=== PATIENT | female | born 1955 | race Caucasian/White ===

== ENCOUNTER 2022-04-25 10:01 | Emergency (ER) | payer MEDICARE, OTHER, SELFPAY ==
[2022-04-25 10:06] VITALS: BP 124/67; PULSE 82; RESP 20; TEMP 36.9; O2SAT 97; BMI 26.1
--- NOTE | 2022-04-25 10:15 | CRLHL7_ITS ---
For Patients: As a result of the Cures Act, medical imaging exams and procedure reports are released immediately into your electronic medical record. You may view this report before your referring provider. If you have questions, please contact your health care provider. Indication: Knee pain. Technique: Multiple radiographic views of the knee. Comparison: None. Findings: No acute fractures. No effusion. Very slight narrowing of the medial and lateral tibiofemoral joint spaces. A few tiny marginal osteophytes. No soft tissue abnormalities Impression: 1. No acute radiographic abnormalities involving the right knee. 2. Very minor osteoarthrosis. Dictated by Basil Newell MD @ 04/25/2022 11:27:35 AM (Electronically Signed)
--- NOTE | 2022-04-25 10:16 | ED.GENADULT ---
HPI - General Adult General Time Seen by Provider: 10:16 Date Seen: 04/25/22 Chief complaint: Extremity Pain/Injury, Lower Stated complaint: Right knee injury Time Seen by Provider: 04/25/22 10:04 Source: patient Mode of arrival: wheelchair Limitations: physical limitation History of Present Illness HPI narrative: Patient is a 66 white female has had a history of left knee replacement, 3 months ago fell on her right knee and injured it. Saw her primary care doctor few weeks ago and thought there was a torn ligament in her knee, but has not had imaging, she has had a small knee brace on, more compression brace. Patient reports no effusion but reports limited motion she stepped down today and had significant pain in her knee. Has not noted swelling, feels a sensation of locking or catching. No marked swelling as mention. Related Data Home Medications Medication Instructions Recorded Confirmed albuterol sulfate 90 mcg/actuation INHALATION 04/25/22 aerosol inhaler bupropion HCl 300 mg 24 hr tablet, mg PO 04/25/22 extended release buspirone 30 mg tablet mg 04/25/22 duloxetine 20 mg capsule,delayed mg PO 04/25/22 release famotidine 20 mg tablet mg 04/25/22 losartan 50 mg tablet mg 04/25/22 oxycodone-acetaminophen 5 mg-325 tab 04/25/22 mg tablet pregabalin 50 mg capsule mg 04/25/22 Previous Rx's Medication Instructions Recorded ketorolac 10 mg tablet 10 mg PO Q8H #15 tab 04/25/22 Allergies Allergy/AdvReac Type Severity Reaction Status Date / Time aripiprazole [From Abilify] Allergy Intermediate Verified 04/25/22 10:12 Review of Systems Status of ROS: Reports: 6 or more systems reviewed and unremarkable except as noted in History and below PFSH PFSH Social History Smoking Status: Unknown if ever smoked Exam Narrative: Exam Narrative: Objective: Patient is in no apparent distress Has a brace on that is removed from her right knee. The patient has no effusion the patient has a stable knee with negative anterior-posterior drawer, limited range of motion of flexion extension due to discomfort distal CMS appears intact, no lower extremity swelling , no redness or warmth of the knee. Const: Vital Signs, click to edit/add: Vital Signs - 24 hr 04/25/22 10:06 Temperature 98.5 F Pulse Rate [Pulse Oximeter] 82 Respiratory Rate 20 Blood Pressure [Ri ght Upper Arm] 124/67 Pulse Oximetry 97 Course Vital Signs Vital signs: Initial Vital Signs Temperature 98.5 F 04/25/22 10:06 Temperature Source Temporal Artery Scan 04/25/22 10:06 Pulse Rate 82 04/25/22 10:06 Respiratory Rate 20 04/25/22 10:06 Blood Pressure 124/67 04/25/22 10:06 Blood Pressure Mean 86 04/25/22 10:06 Blood Pressure Position Supine 04/25/22 10:06 Pulse Oximetry 97 04/25/22 10:06 Oxygen Delivery Method 04/25/22 10:06 Vital Signs Temperature 98.5 F 04/25/22 10:06 Pulse Rate 82 04/25/22 10:06 Respiratory Rate 20 04/25/22 10:06 Blood Pressure 124/67 04/25/22 10:06 Pulse Oximetry 97 04/25/22 10:06 Temperature 98.5 F 04/25/22 10:06 Pulse Rate 82 04/25/22 10:06 Respiratory Rate 20 04/25/22 10:06 Blood Pressure 124/67 04/25/22 10:06 Pulse Oximetry 97 04/25/22 10:06 Medical Decision Making MDM Narrative Medical decision making narrative: Patient this point is not had an x-ray of her knee would order a plain film of her knee, will also then give her knee immobilizer crutches, Toradol 10 mg orally now patient likely will need to see Orthopedics and have follow-up imaging if more advanced imaging required such as MRI scanning of the knee. Her symptoms would be somewhat suggestive of meniscal injury. Addendum: By my review her knee x-ray looks unremarkable, should be placed in a knee immobilizer, crutches, Toradol as needed. Recommend orthopedic followup in 3-4 days for reassessment, possible more advanced imaging if needed suspicion would be for a cartilaginous injury. Discharge Plan Discharge Clinical Impression: Acute knee pain Patient Disposition: Home w/ Parent or Adult Condition: Stable Additional Instructions: Rest, ice, knee immobilizer, nonweightbearing with crutches, orthopedic followup in 3-4 days, Toradol as needed for pain control, may use acetaminophen as well. Activity Level: Light activity and No Weight Bearing Discharge Diet: Regular Prescriptions: New ketorolac 10 mg tablet 10 mg PO Q8H Qty: 15 0RF No Action losartan 50 mg tablet 0RF oxycodone-acetaminophen 5-325 mg tablet 0RF famotidine 20 mg tablet 0RF buspirone 30 mg tablet 0RF albuterol sulfate 90 mcg/actuation HFA aerosol inhaler INHALATION 0RF Label Comments: INHALE 1-2 PUFFS BY MOUTH EVERY 4 HOURS IF NEEDED FOR SHORTNESS OF BREATH OR WHEEZING bupropion HCl 300 mg tablet extended release 24 hr PO 0RF duloxetine 20 mg capsule,delayed release(DR/EC) PO 0RF pregabalin 50 mg capsule 0RF Stand Alone Forms: [employer] Info Instructions
[2022-04-25] MEDS: KETOROLAC 10 MG TABLET PO (10:33)
== END 2022-04-25 11:12 | disposition home or self-care (01) ==
PROVIDERS: Emergency Provider Family Medicine; PCP Family Medicine
DX: M25.561 Pain in right knee (principal)
CPT/HCPCS: 73562; 99283; 99284; A9270

== ENCOUNTER 2022-05-06 06:48 | Outpatient (CLI) | payer MEDICARE, OTHER, SELFPAY ==
--- NOTE | 2022-05-06 07:15 | MR_ITS ---
[address] [address] Phone:?[phone] Fax:?[phone] Referring Physician Information: Selene Farnsworth [address] [facility] [address] Phone:?[phone] Fax:?[phone] Patient:?Irene Diaz D.O.B:?1955 Sex:?Female Phone:?[phone] [facility] MRN:?[id number] Exam Date:?05/06/2022 ? EXAM: MRI OF THE RIGHT KNEE CLINICAL INFORMATION: The patient is a 67-year-old with right knee pain. Evaluate for lateral meniscal injury. PRIOR SURGERY: None reported. COMPARISON STUDIES: There are no prior studies available for comparison. TECHNICAL INFORMATION: Imaging was performed on a high-field, 1.5 Kathe MR scanner. Axial proton-density and fat-suppressed T2 imaging of the right knee was performed in addition to sagittal proton-density and fat-suppressed proton- density imaging. Coronal proton-density and coronal STIR imaging was performed as well. FINDINGS: Articular/Extraarticular collections: Effusion: Moderate. Popliteal cyst: Minimal. Loose bodies: No well-defined intra-articular loose bodies are seen. Subcutaneous and extraarticular soft tissues: There is a mixed signal intensity fluid collection noted within the subcutaneous soft tissues along the anterior aspect of the patella seen on sagittal series 6 image 12 and on axial series 4 image 13. This collection measures 22 mm in mediolateral dimension, 15 mm in craniocaudal dimension, and 7 mm in anteroposterior dimension. Surrounding soft tissue edema, hemorrhage, or inflammatory changes can be seen. The findings may relate to prepatellar bursitis but may also relate to hematoma or abscess within the subcutaneous soft tissues. Clinical correlation is required. Osseous structures: Mild reactive marrow edema can be seen along the posterolateral aspects of the medial tibial plateau on coronal series 8 image 21, in keeping with the meniscal tearing discussed below. Additional reactive marrow edema can be seen along the patellar apex and medial patellar facet, in keeping with the chondromalacia and chondral loss described below. No other bony abnormalities about the knee are seen. Ligamentous structures: ACL: Intact and normal in appearance. PCL: Intact and normal in appearance. MCL: Chronic residual changes of a prior incomplete proximal MCL sprain can be seen on coronal series 8 images 16 and 17. No evidence for acute injury is identified. No transverse disruption of MCL fibers can be seen. LCL: Intact and normal in appearance. Posterolateral corner: Intact and normal in appearance. Posteromedial corner: No posteromedial corner soft tissue injury. Semimembranosus and pes anserine tendons demonstrate no tendinopathy or associated bursitis. Extensor mechanism/Patellar retinacular structures: Patellar tendon: Intact, without tendinopathy. Quadriceps tendon: Intact, without tendinopathy. Retinacula: The medial and lateral retinacula are intact. The medial patellofemoral ligament is intact. Medial compartment: Medial meniscus: The medial meniscus is abnormal in appearance. There is broad- based, complex tearing of the posterior horn of the medial meniscus involving the superior and inferior surfaces with extension to the meniscal attachment. The findings are seen on sagittal series 5 image 19 and on coronal series 7 image 21. The area of tearing measures 23 mm in mediolateral dimension. Additionally, there is a full-thickness radial tear involving the far posterior aspect of the medial meniscus at the meniscotibial attachment on sagittal series 6 image 18 and on coronal series 7 image 22. This radial tearing measures approximately 6 mm in greatest dimension. The middle and anterior portions of the medial meniscus appear intact. No definite evidence for well-defined parameniscal cyst formation is seen. Medial femoral condyle: No chondromalacia, chondral defect, or osteochondral abnormality. Medial tibial plateau: No chondromalacia, chondral defect, or osteochondral abnormality. Lateral compartment: Lateral meniscus: No evidence for lateral meniscal tearing is present. No evidence for parameniscal cyst formation can be seen. Lateral femoral condyle: No chondromalacia, chondral defect, or osteochondral abnormality. Lateral tibial plateau: No chondromalacia, chondral defect, or osteochondral abnormality. Patellofemoral compartment: Patella: Full-thickness and near full-thickness chondral loss can be seen involving the patellar apex and medial patellar facet on axial series 3 image 9, measuring 16 mm in mediolateral dimension. Underlying bony changes are present. Additional grade II chondromalacia of the lateral patellar facet can be seen. Trochlea: Full-thickness and near full-thickness chondral loss can be seen along the medial articular surfaces of the femoral trochlea on axial series 3 image 15 and on sagittal series 6 image 16, measuring approximately 15 mm in greatest dimension. Neurovascular: No definite neurovascular abnormalities are seen. CONCLUSION: 1. Broad-based, complex tearing of the posterior horn of the medial meniscus, including radial tearing of the far posterior aspect of the medial meniscus at the meniscotibial attachment. 2. No lateral meniscal tearing is present. 3. Chondromalacia and chondral loss involving the patellofemoral articulation as described above. 4. Chronic incomplete MCL sprain. The cruciate ligaments appear intact. 5. Moderate knee joint effusion and minimal popliteal cyst. 6. Fluid collection within the subcutaneous soft tissues along the anterior aspect of the patella with surrounding edema, hemorrhage, or inflammatory change. The findings may relate to prepatellar bursitis, hematoma, or abscess. AEC Electronically signed on 05/06/2022 1:39:00 PM by Antony Harris M.D.
== END 2022-05-06 06:49 | disposition home or self-care (01) ==
LOC: MRI 06:51
PROVIDERS: PCP Family Medicine; Visit Provider Physician Assistant Surgical
DX: M25.561 Pain in right knee (principal); M23.221 Derangement of posterior horn of medial meniscus due to old tear or injury, right knee; M94.261 Chondromalacia, right knee; S83.411A Sprain of medial collateral ligament of right knee, initial encounter; M25.461 Effusion, right knee; M71.21 Synovial cyst of popliteal space [Baker], right knee
CPT/HCPCS: 73721

== ENCOUNTER 2022-05-26 06:12 | Day surgery (SDC) | payer MEDICARE, OTHER, SELFPAY ==
[2022-05-26] VITALS (15 sets, daily range): BP systolic 134–153; BP diastolic 64–91; PULSE 60–86; RESP 8–20; TEMP 36.4–36.6; O2SAT 4–100; BMI 25.6
[2022-05-26] MEDS: LACTATED RINGERS 1000 ML 1,000 ML 100 ML IV (07:00)
[2022-05-26] MEDS: SODIUM CHLORIDE 0.9 % (FLUSH) 10 ML SYRINGE IVF (07:00)
[2022-05-26] MEDS: CEFAZOLIN 1 GM in 0.9 % SODIUM CHLORIDE Mini-bag 100 ML IVPB (07:42)
--- NOTE | 2022-05-26 08:49 | PM.ORPRC ---
Procedure Note Date of procedure: 05/26/22 Procedure: PREOPERATIVE DIAGNOSIS: 1. Right knee medial meniscus root tear POSTOPERATIVE DIAGNOSIS: 1. Right knee medial meniscus posterior root tear, subacute 2. 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 Right knee arthroscopic medial meniscus posterior root repair 2. Right knee medial femoral condyle chondroplasty 3. Right knee microfracture intercondylar notch SURGEON: Keyur Valle M.D. BEAM DYER: Gen WHITFIELD. Of note, a skilled acute care certified nursing assistant was critical for this case to aid in patient positioning, knee manipulation, skill to manipulate arthroscopic instruments and camera, instrument exchange, and closure. ANESTHESIA: General LMA EBL: 10 mL TOURNIQUET: 60 minutes at 275 torr IMPLANTS: Arthrex 4.75 MM peek SwiveLock suture anchor COMPLICATIONS: None evident INDICATIONS: The patient is a pleasant 67-year-old female who has experienced right knee pain particularly with any twisting or turning. Physical exam was concerning for medial meniscus tear, this was confirmed on MRI, but more specifically as at the posterior root. The medial meniscus had otherwise extruded into the medial gutter. Attempted nonoperative management has been tried, and failed. Thus, surgery was recommended for stabilization of the medial meniscus posterior root. FINDINGS: Grade 2-3 chondromalacia medial femoral condyle broadly involving the weight-bearing portion. Grade 2-3 patellofemoral compartment. ACL and PCL were intact and robust. Lateral meniscus was intact and strong. Lateral articular cartilage was healthy. Medial compartment showed tearing of the posterior root primarily in a radial manner. It did have some longitudinal extension along the posterior horn. After capturing the meniscus root and anchor, the posterior horn tear did not have any further excursion and instead was stable. DESCRIPTION OF PROCEDURE: After a thorough discussion of risks, benefits, and alternatives, the patient was brought to the operating room and placed upon the operating table. Induction of anesthesia was undertaken as previously noted. 1 g IV Ancef was administered within 1 hr of incision preoperatively. Appropriate time-out was performed identifying proper patient, site, and procedure. The right lower extremity was prepped and draped in the appropriate sterile fashion using ChloraPrep. The limb was exsanguinated and tourniquet inflated. Anterolateral and anteromedial portals were established with an 11 blade, and a diagnostic arthroscopy was performed. This identified the findings as noted above. Following the diagnostic arthroscopy, the meniscal root was debrided with a 4.0 mm torpedo shaver. This was to freshen the meniscal edge. This also allowed us to debride some the synovium on the medial wall within the notch. A flip cutter guide for the posterior meniscus root was utilized and placed in the desired fashion where the medial meniscus posterior root should attach. A 6 mm flip cutter was then drilled up from the medial tibial crest region, and exited exactly where our desired spot was. The blade was flipped, and it was retro drilled approximately 5-10 mm deep at most. Attention was then turned to securing of the meniscal root. The meniscal scorpion device was utilized to pass 2 separate # 0 fiber link sutures in a luggage tag fashion. Excellent security of the meniscus was achieved. These tails were brought down through the bone tunnel that was drilled with the flip cutter, using a shuttle suture. After providing tension on this, the meniscus indeed became stable, and improved in position. The sutures were anchored with a 4.75 mm peek SwiveLock suture anchor after drilling, tapping, and placing the anchor. The meniscus was reprobed and found to be stable. Chondroplasty was performed on the medial femoral condyle using a 4.0 mm torpedo shaver. This was taken back just to the a stable chondral edge subtle loose pieces were debrided. At this stage, the Arthrex power pick device was utilized to microfracture the intercondylar notch to aid with the healing of the meniscus repair. Instruments were removed, excess fluid was drained, and closure performed with 2-0 Vicryl for subcutaneous closure of the tibial incision, and 4-0 Monocryl for subcuticular closure and portal closure. with Steri-Strips. Dressings were applied, the tourniquet deflated, and the patient was awoken from anesthesia and transferred to the PACU in stable condition. A skilled acute care certified nursing assistant was critical for this case to aid in patient positioning, knee manipulation, skill to manipulate arthroscopic instruments and camera, instrument exchange, and closure. PLAN: 1. Toe-touch weightbear operative lower extremity. Crutch / walker ambulation assistance PRN. 2. Ice, acetominophen and/or ibuprofen, and Percocet for pain as needed. 3. Knee range of motion and quad sets/straight leg raise regularly 4. Follow up with PA visit in 1-2 weeks for a wound check. Brace use-0-90 degrees open. Weightbear as tolerated. Brace times 2 weeks day and night. Then another 4 weeks just during the day.
--- NOTE | 2022-05-26 09:13 | W.PM.NB ---
Nerve Block Nerve Block Time Seen by Provider: 08:59 Date Seen: 05/26/22 Type of block requested by surgeon for post-operative analgesia: geniculars Side: right Time out performed: Yes Verification of patient name: Yes Verification of date of : Yes Site marking: site marked Name of person performing procedure: LESLIE Angela Continuous monitoring Was continuous monitoring of O2 sat, B/P, student financial aid manager, recorded every 15 minutes?: Yes Procedure Checklist: sterile prep, needles and gloves Ultrasound guided. Images saved: No Medications given in 5ml increments after negative aspiration: Ropivicaine %: 0.5 mL: 12 Needle gauge: 25 Precedex (mcg): 20 Patient tolerated procedure well: Yes Block Charges Block Charge (with Pro Fee): Genicular Nerve Block Use of Ultrasound Machine for Block: No
[2022-05-26] MEDS: ONDANSETRON 2 MG/ML inj 4 MG IVP (09:22)
[2022-05-26] MEDS: METOCLOPRAMIDE HCL 5 MG/ML INJ 10 MG IVP (09:50)
[2022-05-26] MEDS: hydrOXYzine pamoate 25 MG CAPSULE PO (10:15)
[2022-05-26] MEDS: OxyCODONE/APAP 5-325 TABLET 1 TAB PO (10:15)
--- NOTE | 2022-05-26 11:59 | W.ANESCHARGE ---
Anesthesia Charges Start Date/Time Anesthesia Start Date: 05/26/22 Anesthesia Start Time: 07:36 Stop Date/Time Anesthesia Stop Date: 05/26/22 Anesthesia Stop Time: 09:08
--- NOTE | 2022-05-26 12:55 | W.ANESCHARGE ---
Anesthesia Charges Start Date/Time Anesthesia Start Date: 05/26/22 Anesthesia Start Time: 07:36 Stop Date/Time Anesthesia Stop Date: 05/26/22 Anesthesia Stop Time: 09:08 Summary Emergency: No
== END 2022-05-26 11:20 | disposition home or self-care (01) ==
PROVIDERS: PCP Family Medicine; Visit Provider Orthopaedic Surgery Sports Medicine
PROC: (CPT 29870; principal; 2022-05-26 08:00)
DX: M23.221 Derangement of posterior horn of medial meniscus due to old tear or injury, right knee (principal); M94.261 Chondromalacia, right knee
CPT/HCPCS: 29882; 29879; 1400; 64454; A9270; C1713; J0690; J1100; J1170; J1200; J2250; J2405; J2704; J2765; J2795; J3010; J7120; L1833

== ENCOUNTER 2022-07-22 11:30 | Outpatient (RCR) | payer MEDICARE, OTHER, SELFPAY ==
--- NOTE | 2022-06-17 15:48 | PT.OPEX ---
PT [facility] PT [facility] Eval Start: 06/17/22 14:45 Freq: Status: Active Protocol: Document 06/17/22 14:46 ARR (Rec: 06/17/22 15:45 ARR [id number]) E-signed By Katheryn Gray DPT Physical Therapy Outpatient Evaluation Insurance Information Recert Due Date 09/15/22 Insurance Name Medicare B Insurance Information/Comments Eval 06/17 SAM Medical Diagnosis Z98.890 other specified partial medial meniscectomy Treating Diagnosis M25.561 right knee pain M25.661 right knee stiffness R26.2 difficulty walking Referring BRONWYN Leslie ([facility]) Subjective Subjective ~3 wks post op right knee arthroscopic medial meniscus posterior root repair, medial femoral condyle chondroplasty, microfracture intercondylar notch -(date of surgery-2021). Continues to wear brace . Wants to limit in person PT visits. Overall doing well. Very little pain. -Split level level home with spouse. To get to front door has x 7 steps then another x 7 steps to main level. Base level has laundry. Currently doing step to walking pattern, has been practicing foot over foot pattern -Walking without no AD. -Able to do ADL's without assistance -Does exercises currently bending and straightening knee PMHx: sepsis, renal disease, chronic LBP, R shoulder arthritis, L TKA, shoulder surgery Preferred Name SAM Objective Functional Test Performed & Score Palpation: slight TTP over portals. Reduced tissue mobility over incisions. All healing, slight scabbing over distal incision SLS (30 sec): unable Gait: slight antalgic gait with reduced heel toe pattern, brace donned RANGE OF MOTION: LE ROM (R/L): -Knee Flx: 135 L / 130 R -Knee Ext: 0 L / -5 (lacking extension) R STRENGTH: LE Flexibility (R/L) - Gastroc: + R Knee Patella: (R) -VMO coordination: reduced quad firing, -Patella glides: reduced sup/ inf -Extensor lag: pos on R during eccentric lowering Assessment Assessment/Impression Pt is a 67 y/o female who presents s/p right knee arthroscopic medial meniscus posterior root repair, medial femoral condyle chondroplasty, microfracture intercondylar notch on 05/26/22 ~3 wks post op this date. Signs and symptoms likely indicating / consistent with post op status including decreased knee ROM, quad inhibition, and antalgic gait. Patient also has notable objective findings including reduced knee extension lacking 5* also likely contributing to the problem. Patient is a good candidate for skilled therapy to target deficits described above. Skilled PT intervention is necessary for use of therapeutic exercise manual therapy, neuromuscular re- education, gait training, and therapeutic activity. Functional impairments include difficulty with: stairs, walking. See appropriate sections of PT eval for complete list of goals and POC . D/C plan and criteria is for pt to achieve the goals as listed below or until max rehab potential is met. Pt was agreeable with plan of care and goals established. Pt wishing to reduce clinic visits, pt doing very well post-op at this time. Did discuss not going to end range flexion due to tissue healing and to follow MD restrictions on brace Plan of Care Rehabilitation Potential Good Physical Therapy Goals STG (within 1 visits) 1) Pt will initiate HEP without increased pain/ symptoms LTG (within 4 visits) 1) Pt will be indep with HEP for mcc management of pain/symptoms 2) Pt will demonstrate improved knee AROM at least 0* full extension for improved gait 3) Pt will demonstrate ability to maintain SLS > 15 sec with neutral pelvis and LE alignment to reduce knee strain during ambulation on uneven terrain 4) Pt will complete 6MWT without device and nonantalgic gait with no increases in pain for improved community mobility Treatment Plan/Direct Interventions Gait Training,Neuromuscular Re -ed,Therapeutic Activities, Therapeutic Exercises Frequency/Duration 1x every other week x 4 visits within 90 days Patient Will Be Discharged From Therapy Skills [facility],Independent w/ HEP Evaluation Billing Untimed Code Treatment Minutes 20 Complexity Low Certification Information Initial Certification Date 06/17/22 Ending Certification Date 09/15/22 Provider Signature Shows Agreement With POC & Medical Necessity Physician Comment/Change Comment or Changes Physician NPI Number #
== END 2022-10-11 15:25 | disposition home or self-care (01) ==
PROVIDERS: PCP Family Medicine; Visit Provider Physician Assistant Surgical
DX: Z98.890 Other specified postprocedural states (principal); Z51.89 Encounter for other specified aftercare
CPT/HCPCS: 97110; 97140; 97161

== ENCOUNTER 2022-08-18 13:17 | Outpatient (CLI) | payer MEDICARE, OTHER, SELFPAY ==
--- NOTE | 2022-08-18 13:45 | MR_ITS ---
[address] [address] Phone:?[phone] Fax:?[phone] Referring Physician Information: Keyur Valle M.D. [address] [facility] [address] Phone:?[phone] Fax:?[phone] Patient:Taylor Diaz D.O.B:?1955 Sex:?Female Phone:?[phone] [facility] MRN:?[id number] Exam Date:?08/18/2022 ? EXAM: MRI of the RIGHT KNEE, without contrast CLINICAL INFORMATION: Female, 67 years old, with right knee pain. INDICATION: Evaluate meniscus repair PRIOR SURGERY: History of prior surgery. PLAIN FILMS: None available. COMPARISONS: Knee MRI 05/06/2022. TECHNICAL INFORMATION: Using a 1.5T MR scanner and a localizing surface coil: sagittals: PD, PDFS coronals: PD, T2FS axials: PD, PDFS SEDATION: None CONTRAST: None FINDINGS: Knee joint: Effusion: Large sized right knee effusion. Popliteal cyst: None. Loose bodies: None. Subcutaneous and extra-articular soft tissues: Unremarkable. Ligaments: ACL: Intact ACL anteromedial and posterolateral bundles, without sprain or tear. PCL: Intact PCL, without acute or chronic injury. MCL: Chronic residua of superficial MCL sprain injury. LCL: Intact LCL, without injury. Posterolateral corner: No posterolateral corner soft tissue injury. Popliteus, biceps femoris, iliotibial band, popliteofibular ligament and lateral gastrocnemius are intact. Posteromedial corner: No posteromedial corner soft tissue injury. Semimembranosus, pes anserine tendons and posterior oblique ligament are without injury, tendinopathy or bursitis. Extensor mechanism: Patellar tendon: Intact, without tendinopathy. Quadriceps tendon: Intact, without tendinopathy. Retinacula: Medial and lateral retinacula are intact. Fat pads: Unremarkable infrapatellar Hoffa's, quadriceps and prefemoral fat pads. Medial compartment: Medial meniscus: Postoperative changes of posterior root repair of the medial meniscus. No convincing appearance of meniscal tissue is seen at the posterior root underlying the site of repair (sagittal series 6 image 19). There appears approximately 5 mm full-thickness radial tearing along the posterior horn/root (coronal series 8 image 20). Complex signal abnormality and tearing with vertical and horizontal undersurface component of the posterior horn/root measuring 1.0 cm in length (sagittal series 6 images 24-21). There is 5 mm peripheral meniscal extrusion at the level of the body. Medial femoral condyle: Broad-based grade 2/3 chondral thinning of the medial femoral condyle articular cartilage. Medial tibial plateau: Grade 2 chondral thinning of the medial tibial plateau articular cartilage. Lateral compartment: Lateral meniscus: No articular surface, meniscosynovial junction or root tear. No displacement, extrusion or parameniscal cyst. Lateral femoral condyle: No chondromalacia or osteochondral abnormality. Lateral tibial plateau: No chondromalacia or osteochondral abnormality. Patellofemoral joint: Patella: Grade III/IV chondromalacia of the superior medial patellar facet and central midline ridge. Minimal subchondral cystic change is similar to prior. Trochlea: Grade IV chondromalacia of the medial femoral trochlea similar to prior. Proximal tibiofibular joint: Unremarkable, without evidence of ligament sprain injury, joint effusion or adjacent marrow edema. Bones: No stress/occult fractures or other marrow edema/pathology. IMPRESSION: 1. Postoperative changes of posterior root repair of the medial meniscus, without convincing appearance of meniscal fibers extending to the repair site, concerning for residual or recurrent tearing. Complex signal abnormality/tearing with vertical and horizontal undersurface components along the posterior horn/root. 5 mm peripheral meniscal extrusion. 2. Broad-based grade II/III chondromalacia of the medial femoral condyle and tibial plateau articular cartilage, progressed from prior. 3. Patellofemoral chondromalacia with grade III/IV changes similar to prior. 4. Chronic residua of incomplete superficial MCL sprain injury. 5. Large knee joint effusion. KME Electronically signed on 08/18/2022 7:02:00 PM by Claire Dias M.D.
== END 2022-08-18 13:18 | disposition home or self-care (01) ==
LOC: MRI 13:18
PROVIDERS: PCP Family Medicine; Visit Provider Orthopaedic Surgery Sports Medicine
DX: M25.561 Pain in right knee (principal); M22.41 Chondromalacia patellae, right knee; M25.461 Effusion, right knee; M23.221 Derangement of posterior horn of medial meniscus due to old tear or injury, right knee
CPT/HCPCS: 73721

== ENCOUNTER 2022-10-18 07:09 | Day surgery (SDC) | payer MEDICARE, OTHER, SELFPAY ==
[2022-10-18] VITALS (13 sets, daily range): BP systolic 135–156; BP diastolic 68–89; PULSE 76–88; RESP 14–16; TEMP 36.1–36.8; O2SAT 87–100; BMI 26.2
[2022-10-18] MEDS: SODIUM CHLORIDE 0.9 % (FLUSH) 10 ML SYRINGE IVF (07:25)
[2022-10-18] MEDS: LACTATED RINGERS 1000 ML 1,000 ML 100 ML IV (07:25)
--- NOTE | 2022-10-18 07:47 | SUR.PREOP ---
HOME COVID TEST NEGATIVE.
[2022-10-18] MEDS: CEFAZOLIN 2 GM in 0.9 % SODIUM CHLORIDE Mini-bag 100 ML IVPB (07:58)
[2022-10-18] MEDS: ROPIVACAINE 0.5% 30 ML 150 MG INJECTION (08:19)
--- NOTE | 2022-10-18 08:21 | PM.ORPRC ---
Procedure Note Date of procedure: 10/18/22 Procedure: PREOPERATIVE DIAGNOSIS: 1. Right knee medial meniscus tear POSTOPERATIVE DIAGNOSIS: 1. Right knee medial meniscus tear 2. 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 Right knee arthroscopic partial medial meniscectomy 2. Right knee arthroscopic chondroplasty medial and patellofemoral compartments. SURGEON: Keyur Valle M.D. PROGRAM SUPPORT SPECIALIST: ROSEANN Anderson. Of note, an faculty i on call medical assistant was critical for this case to aid in patient positioning, knee manipulation, instrument exchange, and closure. ANESTHESIA: Spinal EBL: 2ml TOURNIQUET: 25 minutes at 300 torr COMPLICATIONS: None evident INDICATIONS: The patient is a pleasant 67-year-old female who has experienced right knee pain particularly with any twisting or turning. Physical exam was concerning for medial meniscus tear, this was confirmed on MRI. Additionally, attempted nonoperative management has been tried, and failed. Thus, surgery was recommended. FINDINGS: Complex tearing the posterior horn to midbody medial meniscus. The posterior meniscus root repair sutures from the prior surgery were visible. They had torn completely from the remaining posterior horn. This was essentially a complete radial tear but now the tissue quality was very poor. Beyond that, grade 3 chondromalacia seen throughout the medial femoral condyle. ACL did not appear to be in its typical location the femoral attachment but instead had a partial empty wall sign. There were fibers that were still taut. The PCL was intact robust. Lateral compartment showed intact lateral meniscus and intact articular cartilage. Patellofemoral compartment showed grade 3 chondromalacia broadly through the trochlear groove and medial femoral condyle anteriorly and distally as well as grade 3 patella median ridge and medial facet. DESCRIPTION OF PROCEDURE: After a thorough discussion of risks, benefits, and alternatives, the patient was brought to the operating room and placed upon the operating table. Induction of anesthesia was undertaken as previously noted. 1 g IV Ancef was administered within 1 hr of incision preoperatively. Appropriate time-out was performed identifying proper patient, site, and procedure. The right lower extremity was prepped and draped in the appropriate sterile fashion using ChloraPrep. The limb was exsanguinated and tourniquet inflated. Anterolateral and anteromedial portals were established with an 11 blade, and a diagnostic arthroscopy was performed. This identified the findings as noted above. Following the diagnostic arthroscopy, a partial medial menisectomy was performed with the combination of basket forceps and a motorized shaver. Following this, the meniscus was re-probed and found to be stable. Approximately 25-30 % of the overall meniscus required resection. Chondroplasty was also performed with the torpedo shaver on the medial femoral condyle and patella for the loose chondral flaps. At this stage, the shaver was reinserted into the suprapatellar pouch and all remaining meniscal debris was evacuated. Instruments were removed, excess fluid was drained, and closure performed with 4-0 Monocryl with Steri-Strips. Dressings were applied, the tourniquet deflated, and the patient was awoken from anesthesia and transferred to the PACU in stable condition. PLAN: 1. Weightbear as tolerated operative extremity. Crutch / walker ambulation assistance PRN. 2. Ice, acetominophen and/or ibuprofen, and Percocet for pain as needed. 3. Knee range of motion and quad sets/straight leg raise regularly 4. Follow up with PA visit in 1-2 weeks for a wound check and possibly to initiate physical therapy.
--- NOTE | 2022-10-18 08:32 | W.ANESCHARGE ---
Anesthesia Charges Start Date/Time Anesthesia Start Date: 10/18/22 Anesthesia Start Time: 07:43 Stop Date/Time Anesthesia Stop Date: 10/18/22 Anesthesia Stop Time: 08:31 Summary Emergency: No
--- NOTE | 2022-10-18 09:16 | W.ANESCHARGE ---
Anesthesia Charges Start Date/Time Anesthesia Start Date: 10/18/22 Anesthesia Start Time: 07:43 Stop Date/Time Anesthesia Stop Date: 10/18/22 Anesthesia Stop Time: 08:31 Summary Emergency: No
[2022-10-18] MEDS: OxyCODONE/APAP 5-325 TABLET 1 TAB PO (09:17)
== END 2022-10-18 09:55 | disposition home or self-care (01) ==
PROVIDERS: PCP Family Medicine; Visit Provider Orthopaedic Surgery Sports Medicine
PROC: (CPT 29870; principal; 2022-10-18 07:45)
DX: S83.231A Complex tear of medial meniscus, current injury, right knee, initial encounter (principal); M22.41 Chondromalacia patellae, right knee
CPT/HCPCS: 29881; 01400; 01630; A9270; J0690; J1100; J2405; J2704; J2795; J3010; J3490; J7120

== ENCOUNTER 2023-08-10 08:33 | Inpatient (IN) | payer MEDICARE, OTHER, SELFPAY ==
[2023-08-10] VITALS (20 sets, daily range): BP systolic 117–166; BP diastolic 59–96; PULSE 73–116; RESP 20–35; TEMP 35.9–37.7; O2SAT 91–98; BMI 24.8; BMI 24.3
--- NOTE | 2023-08-10 08:36 | CRLHL7_ITS ---
For Patients: As a result of the Century Cures Act, medical imaging exams and procedure reports are released immediately into your electronic medical record. You may view this report before your referring provider. If you have questions, please contact your health care provider. Indication: Cough Technique: Chest 1 view Comparison: None Findings/Impression: Cardiovascular and mediastinum: Normal heart size with mild aortic tortuosity. Lungs and pleural space: No pleural effusion or pneumothorax. Granuloma at the right lung base. Mild hazy opacity at the left lung base, question pneumonia. Bones and soft tissues: Right upper quadrant surgical clips. Dictated by Luis M Garcia MD @ 08/10/2023 9:26:13 AM (Electronically Signed)
[2023-08-10] MEDS: 0.9 % SODIUM CHLORIDE 1000 ml 1,000 ML 6000 ML IV (09:20)
[2023-08-10 09:27] LABS: Lactate* 1.3 mmol/L (0.5-1.9)
[2023-08-10 09:29] LABS: Basophils Percent Auto 0.1 % (0.0-3.0); Eosinophils Percent Auto 0.7 % (0.0-7.0); Hematocrit 41.4 % (33.0-51.0); Hemoglobin* 13.8 gm/dL (12.0-16.0); Immature Granulocytes Pct Auto 0.4 %; Lymphocytes Percent Auto 8.9 % (20-44); Mean Corpuscular HGB Conc 33 gm/dL (32-36); Mean Corpuscular Hemoglobin 30 pg (26-34); Mean Corpuscular Volume 89 fL (80-100); Monocytes Percent Auto 8.8 % (0.0-11.0); Neutrophils Percent Auto 81.1 % (42.0-72.0); Platelet Count* 398 K/uL (140-440); RDW Coefficient of Variation % 12.1 % (11.5-15.5); Red Blood Count 4.63 m/uL (4.00-5.20)
[2023-08-10 09:30] LABS: Slide Review Reflex No
[2023-08-10 09:36] LABS: Strep A DNA Probe* NOT DETECTED (Not Detectd)
[2023-08-10 09:43] LABS: Albumin* 4.3 g/dL (3.3-5.0); Chloride* 101 mmol/L (96-114); Sodium* 137 mmol/L (135-149)
[2023-08-10 09:44] LABS: Potassium* 3.2 mmol/L (3.6-5.1)
[2023-08-10] MEDS: METHYLPREDNISOLONE SOD SUCC 62.5 MG/ML (125) 125 MG IVP (09:44)
[2023-08-10 09:46] LABS: Creatinine* 0.6 mg/dL (0.5-1.5); Est. Creatinine Clearance* 41.19; Estimated Glomerular Filt Rate 98 ml/min
[2023-08-10 09:47] LABS: Alanine Aminotransferase* 28 U/L (4-35); Alkaline Phosphatase* 152 U/L (40-150); Anion Gap 9 mEq/L (7-15); Aspartate Amino Transferase* 26 U/L (12-35); Bilirubin Total* 0.4 mg/dL (0.1-1.5); Blood Urea Nitrogen* 18 mg/dL (7-30); Carbon Dioxide* 27 mmol/L (20-32); Glucose* 114 mg/dL (60-115); Total Protein* 7.1 g/dL (6.0-8.3)
--- NOTE | 2023-08-10 09:47 | ED.GENADULT ---
HPI - General Adult General Chief complaint: Diarrhea Stated complaint: cough,dehydrated Time Seen by Provider: 08/10/23 08:35 History of Present Illness HPI narrative: Patient is a 68 year white female who has a history of COPD, asthma, sepsis, presents with cough diarrhea dehydration feeling. She has been sick for couple of weeks. Was seen at [place] [address]. Started on prednisone. That helped initially but then now it has not. She has felt little short of breath, had a negative COVID test at [place] [address]. Has no leg swelling or edema, does have a productive greenish cough. Her O2 sat on presentation is lowish on room air at 91% Related Data Home Medications Medication Instructions Recorded Confirmed albuterol sulfate 90 mcg/actuation 2 inh inhalation Q4H PRN shortness 04/25/22 08/10/23 aerosol inhaler of breath or wheezing bupropion HCl 300 mg 24 hr tablet, 300 mg PO QDAY 04/25/22 08/10/23 extended release buspirone 30 mg tablet 30 mg PO BID 04/25/22 08/10/23 famotidine 20 mg tablet 20 mg PO BID 04/25/22 08/10/23 losartan 50 mg tablet 50 mg PO DAILY 04/25/22 08/10/23 oxycodone-acetaminophen 5 mg-325 1 tab PO Q12H 04/25/22 08/10/23 mg tablet pregabalin 50 mg capsule 50 mg PO HS 04/25/22 08/10/23 ascorbic acid (vitamin C) 500 mg 1 g PO DAILY 04/28/22 08/10/23 tablet aspirin 81 mg tablet,delayed 81 mg PO QDAY 04/28/22 08/10/23 release cholecalciferol (vitamin D3) 25 1,000 unit PO DAILY 04/28/22 08/10/23 mcg (1,000 unit) tablet acetaminophen 500 mg tablet 1,000 mg PO Q6H PRN 05/25/22 08/10/23 modafinil 200 mg tablet 200 mg PO 09/03/22 11/04/22 pantoprazole 40 mg tablet,delayed 40 mg PO DAILY 09/03/22 08/10/23 release duloxetine 60 mg capsule,delayed 120 mg PO DAILY 08/10/23 08/10/23 release Previous Rx's Medication Instructions Recorded celecoxib 200 mg capsule (Celebrex) 200 mg PO BID #60 caps 08/10/22 oxycodone-acetaminophen 5 mg-325 1 tab PO Q4-8H PRN pain #15 tabs 10/18/22 mg tablet (Percocet) amoxicillin 500 mg capsule 2,000 mg (4 x 500 mg) PO ONCE #4 02/21/23 caps Allergies Allergy/AdvReac Type Severity Reaction Status Date / Time aripiprazole [From Abilify] Allergy Intermediate Shortness Verified 11/04/22 10:43 of breath, itchy face hylan G-F 20 [From Synvisc] Allergy Verified 11/04/22 11:03 Review of Systems Status of ROS: Reports: 6 or more systems reviewed and unremarkable except as noted in History and below [facility] Medical History Chronic radicular pain of lower back ?M54.16 - Radiculopathy, lumbar region (ICD-10) ?G89.29 - Other chronic pain (ICD-10) Major depressive disorder ?F32.9 - Major depressive disorder, single episode, unspecified (ICD-10) PUD (peptic ulcer disease) ?K27.9 - Peptic ulcer, site unspecified, unspecified as acute or chronic, without hemorrhage or perforation (ICD-10) Migraine ?G43.909 - Migraine, unspecified, not intractable, without status migrainosus (ICD-10) Vascular disorder of kidney ?N28.89 - Other specified disorders of kidney and ureter (ICD-10) Unspecified asthma ?J45.909 - Unspecified asthma, uncomplicated (ICD-10) Lumbago ?M54.50 - Low back pain, unspecified (ICD-10) Tobacco use ?Z72.0 - Tobacco use (ICD-10) Sepsis ?A41.9 - Sepsis, unspecified organism (ICD-10) Depression ?F32.A - Depression, unspecified (ICD-10) Anxiety ?F41.9 - Anxiety disorder, unspecified (ICD-10) Chronic low back pain ?M54.50 - Low back pain, unspecified (ICD-10) ?G89.29 - Other chronic pain (ICD-10) Arthritis of right shoulder region ?M19.011 - Primary osteoarthritis, right shoulder (ICD-10) Renal disease ?N28.9 - Disorder of kidney and ureter, unspecified (ICD-10) Surgical History S/P right knee arthroscopy (10/18/22) ?Z98.890 - Other specified postprocedural states (ICD-10) History of endometrial ablation ?Z98.890 - Other specified postprocedural states (ICD-10) Hx of oophorectomy Hx of LASIK ?Z98.890 - Other specified postprocedural states (ICD-10) Hx of dilation and curettage ?Z98.890 - Other specified postprocedural states (ICD-10) Hx of vaginal hysterectomy ?Z90.710 - Acquired absence of both cervix and uterus (ICD-10) Hx of tubal ligation ?Z98.51 - Tubal ligation status (ICD-10) History of shoulder surgery ?Z98.890 - Other specified postprocedural states (ICD-10) 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 Smoking Status: Former smoker What tobacco products do you use: cigarettes Smoking quit date/years: >15 years ago Do you use any of these nicotine containing products: None Second hand tobacco smoke exposure: Yes How often do you have a drink containing alcohol: monthly or less How many standard drinks containing alcohol do you have on a typical day: 1 or 2 How often do you have six or more drinks on one occasion: Never AUDIT-C Alcohol total score: 1 Non-prescribed substance use: denies use Caffeine: Yes (COFFEE AND DIET COKE) Are you using contraception or practicing any form of control: No (HYSTERECTOMY) service: No Exam Narrative: Exam Narrative: Objective: Vital signs show blood pressure 150/84 pulse 95 resp rate 22, O2 sat 92% to 91% on room air, mild low-grade temperature 99.2? HEENT shows dry mucous membranes cracking lips no facial asymmetry Neck is supple Chest wheezes in the lower 3rd of the lungs. Heart rhythm regular 2/6 systolic murmur Abdomen benign Extremities are no edema neurologic nonfocal Const: Vital Signs, click to edit/add: Vital Signs - 24 hr 08/10/23 08:41 08/10/23 08:50 08/10/23 09:25 Temperature 99.2 F Pulse Rate 105 H Pulse Rate [Pulse Oximeter] 109 H Respiratory Rate 22 Blood Pressure Blood Pressure [Ri ght Upper Arm] 117/83 Pulse Oximetry 91 91 93 Oxygen Delivery Me thod Room Air 08/10/23 09:30 08/10/23 09:32 08/10/23 09:33 Temperature Pulse Rate 87 95 83 Pulse Rate [Pulse Oximeter] Respiratory Rate Blood Pressure 150/84 H Blood Pressure [Ri ght Upper Arm] Pulse Oximetry 93 92 93 Oxygen Delivery Me thod 08/10/23 09:45 08/10/23 10:00 08/10/23 10:01 Temperature Pulse Rate 106 H 106 H 107 H Pulse Rate [Pulse Oximeter] Respiratory Rate Blood Pressure 165/90 H Blood Pressure [Ri ght Upper Arm] Pulse Oximetry 97 95 95 Oxygen Delivery Me thod 08/10/23 10:15 08/10/23 10:30 08/10/23 10:32 Temperature Pulse Rate 103 H 108 H 108 H Pulse Rate [Pulse Oximeter] Respiratory Rate Blood Pressure 166/91 H Blood Pressure [Ri ght Upper Arm] Pulse Oximetry 95 93 94 Oxygen Delivery Me thod Course Vital Signs Vital signs: Initial Vital Signs Temperature 99.2 F 08/10/23 08:41 Temperature Source Temporal Artery Scan 08/10/23 08:41 Pulse Rate 109 H 08/10/23 08:41 Pulse Rhythm Regular 08/10/23 08:41 Respiratory Rate 22 08/10/23 08:41 Blood Pressure 117/83 08/10/23 08:41 Blood Pressure Mean 94 08/10/23 08:41 Blood Pressure Position Supine 08/10/23 08:41 Pulse Oximetry 91 08/10/23 08:41 Oxygen Delivery Method Room Air 08/10/23 08:41 Vital Signs Temperature 99.2 F 08/10/23 08:41 Pulse Rate 109 H 08/10/23 08:41 Respiratory Rate 22 08/10/23 08:41 Blood Pressure 117/83 08/10/23 08:41 Pulse Oximetry 91 08/10/23 08:41 Oxygen Delivery Method Room Air 08/10/23 08:41 Temperature 99.2 F 08/10/23 08:41 Pulse Rate 108 H 08/10/23 10:32 Respiratory Rate 22 08/10/23 08:41 Blood Pressure 166/91 H 08/10/23 10:32 Pulse Oximetry 92 08/10/23 11:30 Oxygen Delivery Method Room Air 08/10/23 11:30 Medications Administered Medications: Discontinued Medications Generic Name Dose Route Start Last Admin Trade Name Freq PRN Reason Stop Dose Admin Azithromycin 500 mg 08/10/23 09:35 08/10/23 10:34 Azithromycin 100 Mg/Ml Inj IVPB 08/10/23 09:36 500 mg ONCE ONE Administration Sodium Chloride 1,000 mls @ 6,000 mls/hr 08/10/23 08:45 08/10/23 09:50 0.9 % Sodium Chloride 1000 Ml IV 08/10/23 08:54 Infused .Q10M OFELIA Infusion Ceftriaxone Sodium 1 gm/ 100 mls @ 200 mls/hr 08/10/23 09:35 08/10/23 10:36 Sodium Chloride IVPB 08/10/23 09:36 Infused ONCE ONE Infusion Methylprednisolone Sodium Succinate 125 mg 08/10/23 09:35 08/10/23 09:44 Methylprednisolone Sod Succ 62.5 Mg/Ml (125) IVP 08/10/23 09:36 125 mg ONCE ONE Administration Medical Decision Making [facility] Narrative Medical decision making narrative: [age] year white female with history of COPD and asthma, has history of sepsis as well presents with week-long history of cough weakness, dehydration. Patient has been somewhat short of breath as well. Has history of asthma and COPD as well as sepsis. The patient also has had diarrhea the last couple of days. And she does appear to be significantly dehydrated, as well as has on chest x-ray left lower lobe pneumonia. The patient will get blood cultures, started on Rocephin and Zithromax, I think hospitalization observation repaired time would be appropriate for IV steroids, nebulizers as needed. Will recheck viral studies. Patient family comfortable plan. Her white count is also elevated at 19,000 thousand although she has been on a few days a steroid Addendum 10:47 a.m. the patient's white blood cell count is elevated but she has been on a few days a steroid, she does have left lower lobe infiltrate, this looks very consistent with pneumonia. Would also point out she has the elevated CRP at 38. Blood cultures been obtained, IV antibiotics started, Dr. Edmond is hospitalist has accepted. Lab Data Labs: Lab Results 08/10/23 08/10/23 Range/Units 08:36 09:18 WBC 19.90 H (4.50-11.00) K/uL RBC 4.63 (4.00-5.20) m/uL Hgb 13.8 (12.0-16.0) gm/dL Hct 41.4 (33.0-51.0) % MCV 89 (80-100) fL MCH 30 (26-34) pg MCHC 33 (32-36) gm/dL RDW Coeff of Marcela 12.1 (11.5-15.5) % Plt Count 398 (140-440) K/uL Neut % (Auto) 81.1 H (42.0-72.0) % Lymph % (Auto) 8.9 L (20-44) % Dougherty % (Auto) 8.8 (0.0-11.0) % Eos % (Auto) 0.7 (0.0-7.0) % Baso % (Auto) 0.1 (0.0-3.0) % Neut # (Auto) 16.10 H (1.7-7.0) K/uL Lymph # (Auto) 1.80 (0.90-2.90) K/uL Dougherty # (Auto) 1.80 H (0.00-0.90) K/UL Eos # (Auto) 0.10 (0.00-0.50) K/uL Baso # (Auto) 0.00 (0.00-0.30) K/uL Abs Immat Gran (auto) 0.10 (0.00-0.30) K/uL Imm/Tot Granulo (auto) 0.4 % Sodium 137 (135-149) mmol/L Potassium 3.2 L (3.6-5.1) mmol/L Chloride 101 (96-114) mmol/L Carbon Dioxide 27 (20-32) mmol/L Anion Gap 9 (7-15) mEq/L BUN 18 (7-30) mg/dL Creatinine 0.6 (0.5-1.5) mg/dL Estimated Creat Clear 41.19 Estimated GFR 98 ml/min Glucose 114 (60-115) mg/dL Lactate 1.3 (0.5-1.9) mmol/L Calcium 9.0 (8.4-10.6) mg/dL Total Bilirubin 0.4 (0.1-1.5) mg/dL Direct Bilirubin 0.0 (0.0-0.5) mg/dL AST 26 (12-35) U/L ALT 28 (4-35) U/L Alkaline Phosphatase 152 H (40-150) U/L C-Reactive Protein 38.3 H (0.5-1.0) mg/dL Total Protein 7.1 (6.0-8.3) g/dL Albumin 4.3 (3.3-5.0) g/dL SARS-CoV-2 (PCR) Negative SARS-CoV-2 (Negative) Influenza Type A (PCR) Negative PCR FLU A (Negative) Influenza Type B (PCR) Negative PCR FLU B (Negative) RSV (PCR) Negative PCR RSV (Negative) Group A Strep DNA NOT DETECTED (Not Detectd) Discharge Plan Discharge Clinical Impression: COPD (chronic obstructive pulmonary disease), Pneumonia
[2023-08-10 09:48] LABS: PCR FLU A Negative PCR FLU A (Negative); PCR FLU B Negative PCR FLU B (Negative); PCR RSV Negative PCR RSV (Negative)
[2023-08-10 09:53] LABS: SARS PCR* Negative SARS-CoV-2 (Negative)
--- NOTE | 2023-08-10 09:54 | ED.NURSE ---
[facility] radha aware of admission.
[2023-08-10] MEDS: cefTRIAXone 1 GM in 0.9 % SODIUM CHLORIDE Mini-bag 100 ML IVPB (09:57)
--- NOTE | 2023-08-10 10:22 | ED.NURSE ---
report given to lazaro kong rn. will go to 260. will start the azithromycin before transfer.
[2023-08-10 10:25] LABS: C Reactive Protein* 38.3 mg/dL (0.5-1.0)
[2023-08-10] MEDS: AZITHROMYCIN 100 MG/ML inj 500 MG IVPB (10:34)
--- NOTE | 2023-08-10 11:21 | PM.IMHP1 ---
Hospitalist- H&P: HPI History of Present Illness Date Seen: 08/11/23 Chief complaint: cough,dehydrated Narrative: ADMISSION HISTORY AND PHYSICAL - HOSPITALIST Chief Complaint: Weakness, diarrhea, community-acquired pneumonia HPI: 68-year-old daily smoker with a history of mild emphysema presents with approximately 12 days of symptoms. On August 04 she was seen at [address] and started on prednisone but was not given an antibiotic. She said she continued to decline. In the last 2-3 days she started having diarrhea. Her cough is continued to be productive. He has a sore throat. She has had low-grade fevers. She has had increasing weakness. No blood per rectum. No blood per sputum. Not eating much. This morning she felt weaker than the day before and felt like she needed a re-evaluation. She presented to the [place]. ER COURSE: Azithromycin, ceftriaxone, methylprednisolone, fluid bolus. Has not required oxygen. CODE STATUS: FULL CODE EMERGENCY CONTACT PLAN: Zheng. [phone] I've updated the PFSH, medications and allergies in the Expanse tabs. INVESTIGATIONS: LABS/MICRO/ECG/IMAGING Afebrile in the ED this morning. Blood pressure 166/91. Pulse 108. Respiratory rate 22. Pulse ox 94% on room air but has drifted down to 90%. Weight is 59.4 kilos CBC reflects a white blood cell count of 19.9, patient has been on prednisone. Neutrophil % 81.1% Complete metabolic panel shows a mild hypokalemia of 3.2 Renal function, glucose, lactate are all normal. Alk-phos 152 with other normal LFTs CRP 38.3 Negative respiratory panel and negative strep test Labs checked on 08/04 at [place] [id number] reveal: White blood cell count 14.4 Hemoglobin 11.9 CRP were only 6.8 Procalcitonin 0.06 Troponin negative Normal BMP COVID negative One-view chest in the ED this morning Cardiovascular and mediastinum: Normal heart size with mild aortic tortuosity. Lungs and pleural space: No pleural effusion or pneumothorax. Granuloma at the right lung base. Mild hazy opacity at the left lung base, question pneumonia. Bones and soft tissues: Right upper quadrant surgical clips. 2 blood cultures were drawn and are pending [facility] CXR from 08/04 - pt declined CT study Calcified granuloma and mild hyperinflation of the lung field similar to previous. Otherwise negative chest. No pulmonary infiltrates. Stress ECHO 2016 Final Impression: For the clinical and electrocardiographic assessment, please see the monitoring physician's report. The resting echocardiogram demonstrates normal left ventricular size and systolic function. The color-flow Doppler exam demonstrates mild mitral regurgitation, trace tricuspid regurgitation. The stress echocardiogram is unremarkable for ischemic findings. REVIEW OF SYSTEMS: 12-point ROS completed with patient and negative unless otherwise stated in HPI or below. PHYSICAL EXAM: CONSTITUTIONAL: Tired appearing. Nontoxic. Cough is productive. VITAL SIGNS: see record. HEENT: Normocephalic, atraumatic. PERRL, EOMI, conjunctivae pink, no scleral icterus. Ears and nose externally normal. Pharynx normal. NECK: No JVD. No carotid bruit, no thyromegaly, no adenopathy. CHEST: Clear to auscultation bilaterally with scattered wheezes bilaterally. HEART: S1 and S2 normal. No harsh murmurs. Edema MUSCULOSKELETAL: No gross joint deformity or swelling. NEURO: Cranial nerves intact. Grossly intact. No asymmetric findings. SKIN: No rashes, petechiae, concerning changes PSYCHIATRIC: Euthymic. ADMIT TO MEDSURG: FLOOR CARE DVT: Lovenox GI: PO intake, ppi Time spent: Today I spent 75 minutes seeing the patient, discussing the patient with ER staff, reviewing Expanse and EPIC notes/diagnostics, discussing the care plan with our care time that includes social work, PT/OT, pharmacy, RT, shelter and documenting my impressions and plan in the medical record. Irene Diaz is a 68 year old female [facility] Medical History (Updated 08/10/23 @ 12:30 by Tisha Edmond MD) Opioid dependence on maintenance agonist therapy, no symptoms ?F11.20 - Opioid dependence, uncomplicated (ICD-10) History of GI bleed ?Z87.19 - Personal history of other diseases of the digestive system (ICD-10) Renal infarct ?N28.0 - Ischemia and infarction of kidney (ICD-10) Osteoarthritis of right knee ?M17.11 - Unilateral primary osteoarthritis, right knee (ICD-10) Chronic radicular pain of lower back ?M54.16 - Radiculopathy, lumbar region (ICD-10) ?G89.29 - Other chronic pain (ICD-10) Major depressive disorder ?F32.9 - Major depressive disorder, single episode, unspecified (ICD-10) PUD (peptic ulcer disease) ?K27.9 - Peptic ulcer, site unspecified, unspecified as acute or chronic, without hemorrhage or perforation (ICD-10) Migraine ?G43.909 - Migraine, unspecified, not intractable, without status migrainosus (ICD-10) Unspecified asthma ?J45.909 - Unspecified asthma, uncomplicated (ICD-10) Tobacco use ?Z72.0 - Tobacco use (ICD-10) Sepsis ?A41.9 - Sepsis, unspecified organism (ICD-10) Arthritis of right shoulder region ?M19.011 - Primary osteoarthritis, right shoulder (ICD-10) Surgical History (Updated 08/10/23 @ 12:21 by Tisha Edmond MD) Status post medial meniscus repair (05/26/22) ?Z98.890 - Other specified postprocedural states (ICD-10) S/P right knee arthroscopy (10/18/22) ?Z98.890 - Other specified postprocedural states (ICD-10) History of endometrial ablation ?Z98.890 - Other specified postprocedural states (ICD-10) Hx of oophorectomy Hx of LASIK ?Z98.890 - Other specified postprocedural states (ICD-10) Hx of dilation and curettage ?Z98.890 - Other specified postprocedural states (ICD-10) Hx of vaginal hysterectomy ?Z90.710 - Acquired absence of both cervix and uterus (ICD-10) Hx of tubal ligation ?Z98.51 - Tubal ligation status (ICD-10) History of shoulder surgery ?Z98.890 - Other specified postprocedural states (ICD-10) 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 What is your current living situation?: I presently have a place to live Problems where you live: no known problems Problems where you live details: none In the past 12 months, utilities in danger of being shut off: no In past 12 months, lack of transportation kept you from medical appts, meetings, work, or getting things needed for daily living: no In the past 12 mos, have been you worried that your food would run out before you had money to buy more?: never true In the past 12 mos, the food you bought just didn't last and you didn't have money to buy more?: never true Smoking Status: Current every day smoker What tobacco products do you use: cigarettes Smoking packs per day: 1 Smoking cigarettes per day: 20.0 Smoking quit date/years: >15 years ago Do you use any of these nicotine containing products: None Second hand tobacco smoke exposure: Yes How often do you have a drink containing alcohol: monthly or less How many standard drinks containing alcohol do you have on a typical day: 1 or 2 How often do you have six or more drinks on one occasion: Never AUDIT-C Alcohol total score: 1 Non-prescribed substance use: opiods/painkillers and over the counter (eg: immodium) Caffeine: Yes (COFFEE AND DIET COKE) How often does anyone, including family, friends and others, physically hurt you: never How often does anyone, including family, friends and others, insult or talk down to you: never How often does anyone, including family, friends and others, threaten you with harm: never How often does anyone, including family, friends and others, scream or curse at you: never Are you using contraception or practicing any form of control: No (HYSTERECTOMY) service: No Meds Home Medications and Allergies Home Medications Medication Instructions Recorded Confirmed Type albuterol sulfate 90 mcg/actuation 2 inh inhalation Q4H PRN shortness 04/25/22 08/10/23 History aerosol inhaler of breath or wheezing bupropion HCl 300 mg 24 hr tablet, 300 mg PO QDAY 04/25/22 08/10/23 History extended release buspirone 30 mg tablet 30 mg PO BID 04/25/22 08/10/23 History famotidine 20 mg tablet 20 mg PO BID 04/25/22 08/10/23 History losartan 50 mg tablet 50 mg PO DAILY 04/25/22 08/10/23 History oxycodone-acetaminophen 5 mg-325 1 tab PO Q12H 04/25/22 08/10/23 History mg tablet pregabalin 50 mg capsule 50 mg PO HS 04/25/22 08/10/23 History ascorbic acid (vitamin C) 500 mg 1 g PO DAILY 04/28/22 08/10/23 History tablet aspirin 81 mg tablet,delayed 81 mg PO QDAY 04/28/22 08/10/23 History release cholecalciferol (vitamin D3) 25 1,000 unit PO DAILY 04/28/22 08/10/23 History mcg (1,000 unit) tablet acetaminophen 500 mg tablet 1,000 mg PO Q6H PRN 05/25/22 08/10/23 History modafinil 200 mg tablet 200 mg PO 09/03/22 11/04/22 History pantoprazole 40 mg tablet,delayed 40 mg PO DAILY 09/03/22 08/10/23 History release duloxetine 60 mg capsule,delayed 120 mg PO DAILY 08/10/23 08/10/23 History release Allergies Allergy/AdvReac Type Severity Reaction Status Date / Time aripiprazole [From [facility]] Allergy Intermediate Shortness Verified 11/04/22 10:43 of breath, itchy face hylan G-F 20 [From [facility]] Allergy Verified 11/04/22 11:03 Exam Const: Vital Signs, click to edit/add: Vital Signs - 24 hr 08/10/23 08:41 08/10/23 08:50 08/10/23 09:25 Temperature 99.2 F Pulse Rate 105 H Pulse Rate [Pulse Oximeter] 109 H Respiratory Rate 22 Blood Pressure Blood Pressure [Ri ght Upper Arm] 117/83 Pulse Oximetry 91 91 93 Oxygen Delivery Me thod Room Air 08/10/23 09:30 08/10/23 09:32 08/10/23 09:33 Temperature Pulse Rate 87 95 83 Pulse Rate [Pulse Oximeter] Respiratory Rate Blood Pressure 150/84 H Blood Pressure [Ri ght Upper Arm] Pulse Oximetry 93 92 93 Oxygen Delivery Me thod 08/10/23 09:45 08/10/23 10:00 08/10/23 10:01 Temperature Pulse Rate 106 H 106 H 107 H Pulse Rate [Pulse Oximeter] Respiratory Rate Blood Pressure 165/90 H Blood Pressure [Ri ght Upper Arm] Pulse Oximetry 97 95 95 Oxygen Delivery Me thod 08/10/23 10:15 08/10/23 10:30 08/10/23 10:32 Temperature Pulse Rate 103 H 108 H 108 H Pulse Rate [Pulse Oximeter] Respiratory Rate Blood Pressure 166/91 H Blood Pressure [Ri ght Upper Arm] Pulse Oximetry 95 93 94 Oxygen Delivery Me thod Hospitalist - H&P: Result Labs Labs: Short CBC 08/10/23 Range/Units 09:18 WBC 19.90 H (4.50-11.00) K/uL Hgb 13.8 (12.0-16.0) gm/dL Hct 41.4 (33.0-51.0) % Plt Count 398 (140-440) K/uL BMP 08/10/23 09:18 Sodium 137 Potassium 3.2 L Chloride 101 Carbon Dioxide 27 BUN 18 Creatinine 0.6 Glucose 114 Calcium 9.0 Liver Function 08/10/23 Range/Units 09:18 Total Bilirubin 0.4 (0.1-1.5) mg/dL Direct Bilirubin 0.0 (0.0-0.5) mg/dL AST 26 (12-35) U/L ALT 28 (4-35) U/L Alkaline Phosphatase 152 H (40-150) U/L Albumin 4.3 (3.3-5.0) g/dL Assessment and Plan Assessment and plan (1) Community acquired pneumonia: Problem comment: -not hypoxic. -ceftriaxone, azithro, prednisone -resp panel neg, strep neg. added strep pneumo and legionella urinary antigen and nasal MRSA screen -RT helping with aerobika and ISP -VBG reassuring. Reviewed one-view chest x-ray. Status: Acute (2) COPD (chronic obstructive pulmonary disease): Problem comment: -DuoNebs and albuterol MDI -appreciate the help of respiratory therapy -continues to smoke -received methylprednisone in the ED, oral prednisone increased 08/10 to 40 mg daily. -PFTs done in [address]: Early obstruction but poor bronchodilator response. Mild hyperinflation and mild decrease in diffusion capacity. Pattern consistent with emphysema. Status: Acute (3) Acute hypokalemia: Problem comment: Will replace with IV. Fluid bolus ongoing. Status: Acute (4) Tobacco use: Problem comment: -1 pack per day for years Status: Acute (5) Factor V Leiden: Problem comment: -heterozygous by patient report. -daily aspirin -history of renal infarct -no hx of DVT or PE Status: Acute (6) Hypertension: Problem comment: -continue losartan Status: Acute (7) Opioid dependence on maintenance agonist therapy, no symptoms: Problem comment: -Percocet scheduled b.i.d. for chronic low back pain. Will continue here. Status: Acute (8) Major depressive disorder: Problem comment: -triple therapy with Cymbalta, Wellbutrin, BuSpar -prn ativan Status: Acute (9) GERD (gastroesophageal reflux disease): Problem comment: -daily PPI Status: Acute (10) Renal infarct: Problem comment: -HISTORICAL. 2006 secondary to Factor V Leiden. on daily asp. Status: Acute
--- NOTE | 2023-08-10 11:34 | RESP.RT ---
Patient up in bed, working at breathing, rate 22-24/minute, SaO2 89-92%, labored breathing. BBS with coarse crackles through out lung feels, wheezing in bases L>R, clears with patients excellent forceful wet, loose non-productive cough. Patient states has been coughing up yellow/green secretions. PEP with Aerobika started with patient, got exhalation effort, promoted excellent nonproductive cough, with good chest shake. Had patient feel chest sake to understand use of Aerobika in lung recruitment and secretion mobilization. Patient understands and states so. IS with patient, good effort, 1000# with float in good position, promoted excellent nonproductive cough.
[2023-08-10 11:47] LABS: HCO3 VBG 28 mmol/L (21-28); PCO2 VBG 43 mmHG (40-50); PO2 VBG 40.5 mmHG (25-47); pH VBG 7.428 (7.32-7.43)
[2023-08-10 12:20] LABS: Procalcitonin* 0.11 ng/mL (<0.50)
[2023-08-10 12:23] LABS: Troponin I* < 0.01 ng/mL (0.01-0.04)
[2023-08-10] MEDS: buPROPion XL 150 MG TABLET 300 MG PO (12:33)
[2023-08-10] MEDS: DULOXETINE 30 MG CAPSULE DR 60 MG PO ×2 (12:33→21:00)
[2023-08-10] MEDS: OxyCODONE/APAP 5-325 TABLET 1 TAB PO ×2 (12:33→21:00)
[2023-08-10] MEDS: LOSARTAN POTASSIUM 50 MG TABLET PO (12:34)
[2023-08-10] MEDS: LACTATED RINGERS 1000 ML 1,000 ML 200 ML IV ×2 (12:35→13:57)
[2023-08-10] MEDS: OMEPRAZOLE 20 MG CAPSULE DR 40 MG PO (12:35)
[2023-08-10] MEDS: POTASSIUM CHLORIDE 10 MEQ/100 ML PIGGYBACK 100 MEQ IVPB ×2 (12:35→13:56)
[2023-08-10] MEDS: ASPIRIN 81 MG TABLET EC PO (12:48)
[2023-08-10] MEDS: LOPERAMIDE HCL 2 MG CAPSULE 4 MG PO (12:48)
--- NOTE | 2023-08-10 13:46 | REH.PT ---
Dr. Edmond request we wait to eval patient tomorrow due to her no feeling well enough today for PT. Will eval tomorrow.
--- NOTE | 2023-08-10 14:49 | CRLHL7_ITS ---
For Patients: As a result of the Century Cures Act, medical imaging exams and procedure reports are released immediately into your electronic medical record. You may view this report before your referring provider. If you have questions, please contact your health care provider. INDICATION: Respiratory distress. Smoking history. TECHNIQUE: CT chest PE was acquired with 95 cc Isovue 370 IV contrast. COMPARISON: None. FINDINGS: Heart and vasculature: Contrast opacification of the pulmonary arterial tree is adequate. No sign of pulmonary embolism. Heart size is normal. Thoracic aorta and pulmonary artery are normal in caliber. Pericardial thickening versus small effusion. Lungs and pleura: Reticulonodular infiltrates present in the basilar segment of the right upper lobe. Small patchy ground-glass infiltrates in the right middle lobe and left upper lobe. End airspace consolidation is in the lingula. Moderate to severe emphysema. No pleural effusions, pleural thickening, or pneumothorax. Lymph nodes/mediastinum: No mediastinal, hilar, or axillary adenopathy. Chest wall: No masses. Upper abdomen: No acute or significant findings. Bones: Unremarkable for age. IMPRESSION: 1. No pulmonary embolism. 2. Acute infectious process suspected in multiple lobes. 3. Moderate to severe emphysema. 4. Pericardial thickening versus small effusion. Please note that all CT scans at this facility use dose modulation, iterative reconstruction, and/or weight-based dosing when appropriate to reduce radiation dose to as low as reasonably achievable. Dictated by Kolton Spaulding MD @ 08/10/2023 5:40:40 PM (Electronically Signed)
[2023-08-10] MEDS: LORazepam 2 MG/ML inj 0.5 MG IVP (15:17)
[2023-08-10] MEDS: IPRAT-ALBUT 0.5-2.5 MG/3 ML NEB 1 NEB IH (15:17)
--- NOTE | 2023-08-10 15:17 | REH.OT ---
OT: Orders received, chart reviewed. Therapies to hold today per MD. Will eval tomorrow if medically appropriate.
[2023-08-10] MEDS: predniSONE 20 MG TABLET 40 MG PO (15:18)
--- NOTE | 2023-08-10 15:35 | RESP.RT ---
Patient complaint of SOB, working at breathing, was placed on 1 Lpm Nasal Cannula, SaO2 96-98%. DuoNeb given with small volume nebulizer, Mask, Medical Air at 7 Lpm. Patient tolerated well, Heart rate stable at 100. Pre Neb Wheezing noted in both bases, Post neb, no Wheezing noted.
[2023-08-10 18:19] LABS: Appearance Urine Clear (Clear); Bilirubin Urine Negative (Negative); Blood Urine Negative (Negative); Color Urine Yellow (Yellow); Glucose Urine Negative (Negative); Ketones Urine 2+ (Negative); Leukocyte Esterase Urine Negative (Negative); Nitrite Urine Negative (Negative); Protein Urine Negative (Negative); Urobilinogen Urine 0.2 (0.2-1.0); pH Urine 5.5 (5.0-8.5)
[2023-08-10 18:49] LABS: RBC Urine 0-2 (0-2); Squamous Epithelial Cell Urine Few (None-Few); WBC Urine 0-2 (0-5)
--- NOTE | 2023-08-10 19:24 | PC.NURSE ---
End of Shift: Patient arrived to the unit @ 1045 this AM with her . SOB on exertion... Productive wet intermittent cough with cough attacks.. Patient takes awhile to catch her breathe after the episodes oxygen was applied 1x for comfort to help cath her breathe. Oxygen saturations on RA are mid 90's. Patient calls appropriately. LR running @ 200 ml hr discontinue after this bag.. got delayed to IV going bad... CT. LL pneumonia. Reported moderate low back/ chest pain.. chronic back pain takes Percocet for this. Tele was sinus tachycardia. Call light within reach. Patient had a couple episodes of diarrhea this morning none since administering Imodium this afternoon. UA/ culture was collected @ 1800 and given to lab. Sputum culture needs to be collected. IV abx given in the ED this AM. Continuos pulse oximetry remains in place. Kassy CHRISTIANSON RN
[2023-08-10 19:46] LABS: Legionella pneumo Ag Urine L. pneumo Negative (Negative); S pneumo Ag Urine S. pneumo Negative (Negative)
[2023-08-10] MEDS: FAMOTIDINE 20 MG TABLET PO (20:59)
[2023-08-10] MEDS: PREGABALIN 50 MG CAPSULE PO (20:59)
[2023-08-10] MEDS: BUSPIRONE 10 MG TABLET 30 MG PO (20:59)
[2023-08-10] MEDS: CELECOXIB 200 MG CAPSULE PO (20:59)
[2023-08-10] MEDS: LORazepam 0.5 MG TABLET PO (22:43)
[2023-08-10] MEDS: GUAIF/CODEINE 200/20MG/10 ML SOLUTION PO (23:17)
[2023-08-11] VITALS (8 sets, daily range): BP systolic 128–160; BP diastolic 77–109; PULSE 68–95; RESP 16–22; TEMP 36.2–37.2; O2SAT 93–98
[2023-08-11] MEDS: ACETAMINOPHEN 325 MG TABLET PO ×3 (03:56→18:55)
[2023-08-11] MEDS: GUAIF/CODEINE 200/20MG/10 ML SOLUTION PO ×4 (03:57→18:55)
[2023-08-11 06:15] LABS: HCO3 VBG 26 mmol/L (21-28); PCO2 VBG 37 mmHG (40-50); PO2 VBG 62.9 mmHG (25-47); pH VBG 7.465 (7.32-7.43)
[2023-08-11] MEDS: LORazepam 0.5 MG TABLET PO ×3 (06:20→20:20)
[2023-08-11 06:21] LABS: Hematocrit 31.9 % (33.0-51.0); Hemoglobin* 10.8 gm/dL (12.0-16.0); Mean Corpuscular HGB Conc 34 gm/dL (32-36); Mean Corpuscular Hemoglobin 30 pg (26-34); Mean Corpuscular Volume 89 fL (80-100); Platelet Count* 359 K/uL (140-440); Red Blood Count 3.59 m/uL (4.00-5.20); White Blood Count* 22.24 K/uL (4.50-11.00)
[2023-08-11 06:40] LABS: Slide Review Reflex No
--- NOTE | 2023-08-11 06:54 | PC.NURSE ---
End of shift report [id number]: Patient reporting pain to low back, per patient this is chronic in nature and she takes percocet and lyrica at home to manage, as well as pain to her ribs from coughing and headache from coughing. Pain is moderatley managed with scheduled and PRN medications. At 2210 patient stating she is unable to fall asleep but is feeling sleepy, PRN lorazepam administered with minimal relief of insomnia, patient feels that the pain in her ribs and her cough is what is keeping her awake. Manager Con[employer] updated Dr. Mark regarding patients continued cough, new orders for robitussin with codeine PRN. Robitussin/codeine administered with effective results, patient was able to sleep approximately 3 hours before waking with her coarse cough. Shortness of breath reported with exertion and coughing episodes, lung sounds diminished in bilateral bases and coarse crackles noted to left base. Intermittent moist cough, patient is unable to expectorate sputum.
[2023-08-11 06:56] LABS: Chloride* 103 mmol/L (96-114); Potassium* 3.7 mmol/L (3.6-5.1); Sodium* 135 mmol/L (135-149)
[2023-08-11 06:59] LABS: Creatinine* 0.5 mg/dL (0.5-1.5); Est. Creatinine Clearance* 39.21; Estimated Glomerular Filt Rate 103 ml/min
[2023-08-11 07:00] LABS: Anion Gap 6 mEq/L (7-15); Blood Urea Nitrogen* 11 mg/dL (7-30); Calcium* 8.6 mg/dL (8.4-10.6); Carbon Dioxide* 26 mmol/L (20-32); Glucose* 135 mg/dL (60-115); Magnesium* 2.4 mg/dL (1.5-2.6)
[2023-08-11 07:16] LABS: C Reactive Protein* 18.6 mg/dL (0.5-1.0)
--- NOTE | 2023-08-11 07:50 | P.IMPN_ITS ---
Progress Note: A&P Assessment and plan (1) Community acquired pneumonia: Problem details: -not hypoxic. -ceftriaxone, azithro, prednisone -resp panel neg, strep screen, strep pneumo and legionalla antigen neg. sputum and mrsa screen pending. -RT helping with aerobika and ISP -VBG reassuring. -reviewed CTA 08/10. Status: Acute (2) COPD (chronic obstructive pulmonary disease): Problem details: -DuoNebs and albuterol MDI -appreciate the help of respiratory therapy -continues to smoke -received methylprednisone in the ED, oral prednisone increased 08/10 to 40 mg daily. -PFTs done in [address]: Early obstruction but poor bronchodilator response. Mild hyperinflation and mild decrease in diffusion capacity. Pattern consistent with emphysema. Status: Acute (3) Acute hypokalemia: Problem details: resolved. Status: Acute (4) Tobacco use: Problem details: -1 pack per day for years Status: Acute (5) Factor V Leiden: Problem details: -heterozygous by patient report. -daily aspirin -history of renal infarct -no hx of DVT or PE Status: Acute (6) Hypertension: Problem details: -continue losartan Status: Acute (7) Opioid dependence on maintenance agonist therapy, no symptoms: Problem details: -Percocet scheduled b.i.d. for chronic low back pain. Will continue here. Status: Acute (8) Major depressive disorder: Problem details: -triple therapy with Cymbalta, Wellbutrin, BuSpar -prn ativan Status: Acute (9) GERD (gastroesophageal reflux disease): Problem details: -daily PPI Status: Acute (10) Renal infarct: Problem details: -HISTORICAL. 2005 secondary to Factor V Leiden. on daily asp. Status: Acute Subjective Date Seen: 08/11/23 Interval history: Daily Progress Note - Hospital Medicine Day #: 2 CC: pneumonia, COPD, smoker. Afebrile overnight. Blood pressures 120-160 systolic over 85-109 diastolic. Pulse rate is in the 70s. Respiratory rate 16 to 18. Pulse ox 97% on room air White count climbed from 19.9-22.2. Patient is receiving steroids. Hemoglobin is drifting down to 10.8 Platelets are stable. Blood gas today is near normal. No CO2 retention. Electrolytes, including potassium, are normal. Normal renal function. CRP has nearly dropped in half 18.6 today. 38.3 yesterday. Urine strep pneumo and Legionella antigens are negative. OVERNIGHT UPDATES FROM STAFF & MED, LAB, IMAGING UPDATES -feels much better this morning -still coughing, feeling the effects of the prednisone -bringing up phelgm more today. RN: End of shift report [id number]: Patient reporting pain to low back, per patient this is chronic in nature and she takes percocet and lyrica at home to manage, as well as pain to her ribs from coughing and headache from coughing. Pain is moderatley managed with scheduled and PRN medications. At 2210 patient stating she is unable to fall asleep but is feeling sleepy, PRN lorazepam administered with minimal relief of insomnia, patient feels that the pain in her ribs and her cough is what is keeping her awake. Flap Presser updated Dr. Mark regarding patients continued cough, new orders for robitussin with codeine PRN. Robitussin/codeine administered with effective results, patient was able to sleep approximately 3 hours before waking with her coarse cough. Shortness of breath reported with exertion and coughing episodes, lung sounds diminished in bilateral bases and coarse crackles noted to left base. Intermittent moist cough, patient is unable to expectorate sputum. CTA 08/10 1. No pulmonary embolism. 2. Acute infectious process suspected in multiple lobes. 3. Moderate to severe emphysema. 4. Pericardial thickening versus small effusion. Objective: brighter, sitting up in bed, seems less ill this morning Vitals: see above Lungs: Clear. scattered wheeze, rhonchi Cardiac: S1S2. Disposition/Potential discharge - Likely to return to previous living situation. Today I spent 50minutes seeing the patient, reviewing Expanse and EPIC notes/diagnostics, discussing the care plan with our care time that includes social work, PT/OT, pharmacy, RT, group home and documenting my impressions and plan in the medical record. Smoking/Tobacco 97640 >10 mins. I went over the clinical stigmata of chronic tobacco use on the body. I explained the effect on the vasculature, lungs, heart, skin. I recommended complete abstinence from tobacco products and instructed on programs available at discharge from acute care. Exam Const: Vital Signs, click to edit/add: Vital Signs - 24 hr 08/10/23 08:41 08/10/23 08:50 08/10/23 09:25 Temperature 99.2 F Pulse Rate 105 H Pulse Rate [Pulse Oximeter] 109 H Pulse Rate [Right Pulse Oximeter] Respiratory Rate 22 Blood Pressure Blood Pressure [Le ft Arm] Blood Pressure [Ri ght Arm] Blood Pressure [Ri ght Upper Arm] 117/83 Pulse Oximetry 91 91 93 Oxygen Delivery Me thod Room Air Oxygen Flow Rate 08/10/23 09:30 08/10/23 09:32 08/10/23 09:33 Temperature Pulse Rate 87 95 83 Pulse Rate [Pulse Oximeter] Pulse Rate [Right Pulse Oximeter] Respiratory Rate Blood Pressure 150/84 H Blood Pressure [Le ft Arm] Blood Pressure [Ri ght Arm] Blood Pressure [Ri ght Upper Arm] Pulse Oximetry 93 92 93 Oxygen Delivery Me thod Oxygen Flow Rate 08/10/23 09:45 08/10/23 10:00 08/10/23 10:01 Temperature Pulse Rate 106 H 106 H 107 H Pulse Rate [Pulse Oximeter] Pulse Rate [Right Pulse Oximeter] Respiratory Rate Blood Pressure 165/90 H Blood Pressure [Le ft Arm] Blood Pressure [Ri ght Arm] Blood Pressure [Ri ght Upper Arm] Pulse Oximetry 97 95 95 Oxygen Delivery Me thod Oxygen Flow Rate 08/10/23 10:15 08/10/23 10:30 08/10/23 10:32 Temperature Pulse Rate 103 H 108 H 108 H Pulse Rate [Pulse Oximeter] Pulse Rate [Right Pulse Oximeter] Respiratory Rate Blood Pressure 166/91 H Blood Pressure [Le ft Arm] Blood Pressure [Ri ght Arm] Blood Pressure [Ri ght Upper Arm] Pulse Oximetry 95 93 94 Oxygen Delivery Me thod Oxygen Flow Rate 08/10/23 11:00 08/10/23 11:00 08/10/23 11:00 Temperature 99.9 F H Pulse Rate Pulse Rate [Pulse Oximeter] Pulse Rate [Right Pulse Oximeter] 116 H Respiratory Rate 35 H 30 H 30 H Blood Pressure Blood Pressure [Le ft Arm] Blood Pressure [Ri ght Arm] 139/96 H Blood Pressure [Ri ght Upper Arm] Pulse Oximetry 93 95 95 Oxygen Delivery Me thod Room Air Room Air Room Air Oxygen Flow Rate 08/10/23 11:30 08/10/23 11:30 08/10/23 14:15 Temperature Pulse Rate 101 H Pulse Rate [Pulse Oximeter] Pulse Rate [Right Pulse Oximeter] Respiratory Rate Blood Pressure Blood Pressure [Le ft Arm] Blood Pressure [Ri ght Arm] Blood Pressure [Ri ght Upper Arm] Pulse Oximetry 92 93 Oxygen Delivery Me thod Room Air Room Air Oxygen Flow Rate 08/10/23 15:00 08/10/23 15:32 08/10/23 15:35 Temperature 97.9 F Pulse Rate Pulse Rate [Pulse Oximeter] Pulse Rate [Right Pulse Oximeter] 107 H 96 Respiratory Rate 22 22 Blood Pressure Blood Pressure [Le ft Arm] Blood Pressure [Ri ght Arm] 155/59 H Blood Pressure [Ri ght Upper Arm] Pulse Oximetry 96 97 Oxygen Delivery Me thod Nasal Cannula Room Air Oxygen Flow Rate 1 08/10/23 19:00 08/10/23 23:00 08/10/23 23:00 Temperature 96.7 F L 98.4 F Pulse Rate Pulse Rate [Pulse Oximeter] Pulse Rate [Right Pulse Oximeter] 94 73 73 Respiratory Rate 20 22 Blood Pressure Blood Pressure [Le ft Arm] 141/87 H 144/89 H Blood Pressure [Ri ght Arm] Blood Pressure [Ri ght Upper Arm] Pulse Oximetry 97 98 Oxygen Delivery Me thod Room Air Room Air Oxygen Flow Rate 08/10/23 23:00 08/11/23 03:00 Temperature 98.1 F Pulse Rate 76 Pulse Rate [Pulse Oximeter] Pulse Rate [Right Pulse Oximeter] 83 Respiratory Rate 16 Blood Pressure Blood Pressure [Le ft Arm] 150/82 H Blood Pressure [Ri ght Arm] Blood Pressure [Ri ght Upper Arm] Pulse Oximetry 93 Oxygen Delivery Me thod Room Air Oxygen Flow Rate Labs Labs: Laboratory Results - last 24 hr 08/10/23 08/10/23 08/10/23 08:36 09:18 11:38 WBC 19.90 H RBC 4.63 Hgb 13.8 Hct 41.4 MCV 89 MCH 30 MCHC 33 RDW Coeff of Marcela 12.1 Plt Count 398 Neut % (Auto) 81.1 H Lymph % (Auto) 8.9 L [place] % (Auto) 8.8 Eos % (Auto) 0.7 Baso % (Auto) 0.1 Neut # (Auto) 16.10 H Lymph # (Auto) 1.80 [place] # (Auto) 1.80 H Eos # (Auto) 0.10 Baso # (Auto) 0.00 Abs Immat Gran (auto) 0.10 Imm/Tot Granulo (auto) 0.4 VBG pH 7.428 VBG pCO2 43 VBG pO2 40.5 VBG HCO3 28 Sodium 137 Potassium 3.2 L Chloride 101 Carbon Dioxide 27 Anion Gap 9 BUN 18 Creatinine 0.6 Estimated Creat Clear 41.19 Estimated GFR 98 Glucose 114 Lactate 1.3 Calcium 9.0 Magnesium Total Bilirubin 0.4 Direct Bilirubin 0.0 AST 26 ALT 28 Alkaline Phosphatase 152 H Troponin I < 0.01 L C-Reactive Protein 38.3 H Total Protein 7.1 Albumin 4.3 Procalcitonin 0.11 Urine Color Urine Appearance Urine pH Ur Specific [place] Urine Protein Urine Glucose (UA) Urine Ketones Urine Blood Urine Nitrite Urine Bilirubin Urine Urobilinogen Ur Leukocyte Esterase Urine RBC Urine WBC Ur Squamous Epith Cells Urine Bacteria Urine L. pneumophilia Ag Urine Strep pneumoniae Ag SARS-CoV-2 (PCR) Negative SARS-CoV-2 Influenza Type A (PCR) Negative PCR FLU A Influenza Type B (PCR) Negative PCR FLU B RSV (PCR) Negative PCR RSV Group A Strep DNA NOT DETECTED Lab Acknowledgement Test Added 08/10/23 08/11/23 18:00 06:05 WBC 22.24 H RBC 3.59 L Hgb 10.8 L Hct 31.9 L MCV 89 MCH 30 MCHC 34 RDW Coeff of [place] Plt Count 359 Neut % (Auto) Lymph % (Auto) [place] % (Auto) Eos % (Auto) Baso % (Auto) Neut # (Auto) Lymph # (Auto) [place] # (Auto) Eos # (Auto) Baso # (Auto) Abs Immat Gran (auto) Imm/Tot Granulo (auto) VBG pH 7.465 H VBG pCO2 37 L VBG pO2 62.9 H VBG HCO3 26 Sodium 135 Potassium 3.7 Chloride 103 Carbon Dioxide 26 Anion Gap 6 L BUN 11 Creatinine 0.5 Estimated Creat Clear 39.21 Estimated GFR 103 Glucose 135 H Lactate Calcium 8.6 Magnesium 2.4 Total Bilirubin Direct Bilirubin AST ALT Alkaline Phosphatase Troponin I C-Reactive Protein 18.6 H Total Protein Albumin Procalcitonin Urine Color Yellow Urine Appearance Clear Urine pH 5.5 Ur Specific [place] 1.010 Urine Protein Negative Urine Glucose (UA) Negative Urine Ketones 2+ A Urine Blood Negative Urine Nitrite Negative Urine Bilirubin Negative Urine Urobilinogen 0.2 Ur Leukocyte Esterase Negative Urine RBC 0-2 Urine WBC 0-2 Ur Squamous Epith Cells Few Urine Bacteria None Urine L. pneumophilia Ag L. pneumo Negative Urine Strep pneumoniae Ag S. pneumo Negative SARS-CoV-2 (PCR) Influenza Type A (PCR) Influenza Type B (PCR) RSV (PCR) Group A Strep DNA Lab Acknowledgement
[2023-08-11] MEDS: OxyCODONE/APAP 5-325 TABLET 1 TAB PO ×2 (08:27→20:20)
[2023-08-11] MEDS: ASPIRIN 81 MG TABLET EC PO (08:28)
[2023-08-11] MEDS: FAMOTIDINE 20 MG TABLET PO ×2 (08:28→20:20)
[2023-08-11] MEDS: BUSPIRONE 10 MG TABLET 30 MG PO ×2 (08:28→20:20)
[2023-08-11] MEDS: CELECOXIB 200 MG CAPSULE PO ×2 (08:28→20:21)
[2023-08-11] MEDS: predniSONE 20 MG TABLET 40 MG PO (08:29)
[2023-08-11] MEDS: DULOXETINE 30 MG CAPSULE DR 60 MG PO ×2 (08:29→20:16)
[2023-08-11] MEDS: AZITHROMYCIN 250 MG TABLET PO (08:29)
[2023-08-11] MEDS: buPROPion XL 150 MG TABLET 300 MG PO (08:29)
[2023-08-11] MEDS: OMEPRAZOLE 20 MG CAPSULE DR 40 MG PO (08:29)
[2023-08-11] MEDS: LOSARTAN POTASSIUM 50 MG TABLET PO (08:29)
[2023-08-11] MEDS: cefTRIAXone 1 GM in 0.9 % SODIUM CHLORIDE Mini-bag 100 ML IVPB (08:29)
[2023-08-11] MEDS: SODIUM CHLORIDE 0.9 % (FLUSH) 10 ML SYRINGE 5 ML IVF ×2 (08:30→20:21)
[2023-08-11] MEDS: LOPERAMIDE HCL 2 MG CAPSULE PO (11:15)
[2023-08-11] MEDS: IPRAT-ALBUT 0.5-2.5 MG/3 ML NEB 1 NEB IH ×2 (15:28→20:16)
--- NOTE | 2023-08-11 19:27 | PC.NURSE ---
End of Shift: Patient is alert and orientated and up ad morena in her room. Saline locked. Tolerating diet fine with no issues. posterior bases have expiatory and inspiratory wheeze upon auscultation. Calls appropriately. Tele=NSR. Nebs PRN q2... Cough medicine given multiple times today see MAR. Patient reports ativan helps with her throat spasms during productive wet coughing spells. IV ABX given this morning. Reports mild headache throughout the day intermittently.. Tylenol given 2x. Kassy CHRISTIANSON RN
[2023-08-11] MEDS: PREGABALIN 50 MG CAPSULE PO (20:32)
[2023-08-12 03:00] VITALS: BP 109/77; PULSE 71; RESP 18; TEMP 36.3; O2SAT 94
[2023-08-12 06:35] LABS: HCO3 VBG 30 mmol/L (21-28); PCO2 VBG 42 mmHG (40-50)
[2023-08-12 06:37] LABS: Hematocrit 30.6 % (33.0-51.0); Hemoglobin* 10.3 gm/dL (12.0-16.0); Mean Corpuscular HGB Conc 34 gm/dL (32-36); Mean Corpuscular Hemoglobin 30 pg (26-34); Mean Corpuscular Volume 90 fL (80-100); Platelet Count* 355 K/uL (140-440); White Blood Count* 19.24 K/uL (4.50-11.00)
--- NOTE | 2023-08-12 06:54 | PC.NURSE ---
End of Shift: Pt remained AO throughout shift, reported pain at 4/10 in back and ribs. Pt requested all HS medications to be administered at 1999. Slept well. Pt asked questions regarding what abx and when she would be receiving them. All questions answered. PRN nebulizer tx administered with HS medications. O2 sats remained between 94-98% RA.
[2023-08-12 06:55] LABS: Slide Review Reflex No
[2023-08-12 07:14] LABS: Chloride* 104 mmol/L (96-114)
[2023-08-12 07:15] LABS: Potassium* 3.1 mmol/L (3.6-5.1); Sodium* 139 mmol/L (135-149)
[2023-08-12 07:17] LABS: Creatinine* 0.6 mg/dL (0.5-1.5); Est. Creatinine Clearance* 39.21; Estimated Glomerular Filt Rate 98 ml/min
[2023-08-12 07:18] LABS: Anion Gap 7 mEq/L (7-15); Blood Urea Nitrogen* 8 mg/dL (7-30); Carbon Dioxide* 28 mmol/L (20-32); Glucose* 95 mg/dL (60-115)
[2023-08-12 07:19] LABS: Calcium* 8.4 mg/dL (8.4-10.6)
[2023-08-12 07:21] LABS: C Reactive Protein* 7.9 mg/dL (0.5-1.0)
[2023-08-12 07:45] VITALS: BP 147/96; PULSE 95; RESP 22; TEMP 37.5; O2SAT 95
[2023-08-12 08:00] VITALS: PULSE 73
[2023-08-12] MEDS: cefTRIAXone 1 GM in 0.9 % SODIUM CHLORIDE Mini-bag 100 ML IVPB (08:03)
[2023-08-12] MEDS: IPRAT-ALBUT 0.5-2.5 MG/3 ML NEB 1 NEB IH ×2 (08:05→10:46)
[2023-08-12] MEDS: BUSPIRONE 10 MG TABLET 30 MG PO (08:05)
[2023-08-12] MEDS: GUAIF/CODEINE 200/20MG/10 ML SOLUTION PO (08:05)
[2023-08-12] MEDS: predniSONE 20 MG TABLET 40 MG PO (08:05)
[2023-08-12] MEDS: FAMOTIDINE 20 MG TABLET PO (08:06)
[2023-08-12] MEDS: OMEPRAZOLE 20 MG CAPSULE DR 40 MG PO (08:06)
[2023-08-12] MEDS: buPROPion XL 150 MG TABLET 300 MG PO (08:06)
[2023-08-12] MEDS: LOSARTAN POTASSIUM 50 MG TABLET PO ×2 (08:06→12:07)
[2023-08-12] MEDS: DULOXETINE 30 MG CAPSULE DR 60 MG PO (08:07)
[2023-08-12] MEDS: ASPIRIN 81 MG TABLET EC PO (08:07)
[2023-08-12] MEDS: CELECOXIB 200 MG CAPSULE PO (08:07)
[2023-08-12] MEDS: SODIUM CHLORIDE 0.9 % (FLUSH) 10 ML SYRINGE 5 ML IVF (08:07)
[2023-08-12] MEDS: AZITHROMYCIN 250 MG TABLET PO (08:10)
[2023-08-12] MEDS: OxyCODONE/APAP 5-325 TABLET 1 TAB PO (08:27)
[2023-08-12] MEDS: POTASSIUM BICARB 25 MEQ EFFERVESCENT TAB 50 MEQ PO (09:57)
[2023-08-12] MEDS: LORazepam 0.5 MG TABLET PO (10:46)
[2023-08-12 10:48] VITALS: BP 192/110; PULSE 76; RESP 18; TEMP 37.3; O2SAT 96
--- NOTE | 2023-08-12 14:46 | PM.DS1 ---
DS: Providers Provider Date Seen: 08/12/23 Date of admission: 08/11/23 13:47 Primary care physician: Stevenson Mitchell MD Admitting Clinician: Tisha Edmond MD Consults: 08/10/23 11:07 Consult to Occupational Therapy [CONS] Routine Comment: Reason(s) for OT Consult:: Evaluate and Treat Any Restrictions?:: No Restrictions Consult to Physical Therapy [CONS] Routine Comment: Reason(s) for PT Consult:: Evaluate and Treat Any Restrictions?:: No Restrictions Consult to Bucket Wash Operator [CONS] Routine Comment: Reason for Consult:: Social Service Consult 08/10/23 11:12 Consult to Respiratory Therapy [CONS] Routine Comment: Reason(s) for RT Consult:: Consult Attending Physician on discharge: Tisha Edmond MD Date of Discharge: 08/12/23 DS: Diagnosis Discharge Diagnosis (1) Community acquired pneumonia: Status: Acute Problem details: -ceftriaxone, azithro x 2 days, finish 5 day of levaquin as an outpatient. -resp panel neg, strep screen, strep pneumo and legionalla antigen neg. sputum and mrsa screen pending. (2) COPD (chronic obstructive pulmonary disease): Status: Acute Problem details: -continues to smoke -received methylprednisone in the ED, oral prednisone increased 08/10 to 40 mg daily - continued for five days of burst prednisone therapy -PFTs done in [address]: Early obstruction but poor bronchodilator response. Mild hyperinflation and mild decrease in diffusion capacity. Pattern consistent with emphysema. -recommending a pulmonary consult as an outpatient. LABA, LAMA, etc and updated spirometry needed. (3) Hypertension: Status: Acute Problem details: -continue losartan (needed an extra dose on before discharge) (4) Tobacco use: Status: Acute Problem details: -1 pack per day for years - discussed during discharge talk ways to keep abstinent (5) Factor V Leiden: Status: Acute Problem details: -heterozygous by patient report. -daily aspirin -history of renal infarct -no hx of DVT or PE DS: Summary Hospital Course Hospital Course: FINAL DIAGNOSIS/FOLLOW UP ISSUES: BRIEF HOSPITAL COURSE: Patient was admitted for 3 days. Synopsis of acute inpatient issues are outlined above. Chronic medical conditions with notable findings outlined above. DISCHARGE MEDICATIONS: See Reconciled list - SIGNIFICANT CHANGES: Complete the prednisone burst Complete antibiotics I prescribed her a new nebulizer with DuoNebs p.r.n. Short-term cough relief with Robitussin with codeine and Ativan Specific instructions to the patient and follow-up are outlined below. REVIEW OF SYSTEMS No new chest pain or dyspnea Pain controlled No voiding difficulties Tolerating diet challenge PHYSICAL EXAM: CONSTITUTIONAL: VITAL SIGNS: see record. HEENT: Normocephalic, atraumatic. PERRL, EOMI, conjunctivae pink, no scleral icterus. Ears and nose externally normal. Pharynx normal. NECK: No JVD. No carotid bruit, no thyromegaly, no adenopathy. CHEST: Clear to auscultation bilaterally. HEART: S1 and S2 normal. Edema minimal ABDOMEN: Soft, nontender. Normal bowel sounds. MUSCULOSKELETAL: No gross joint deformity or swelling. NEURO: Cranial nerves intact. Grossly intact. No asymmetric findings. SKIN: No rashes, petechiae, concerning changes PSYCHIATRIC: Mood euthymic. DISPOSITION: Home with Time spent on discharge 37 minutes. Time Spent with Patient Time attestation: Total time spent providing and/or coordinating discharge services: Exam Const: Vital Signs, click to edit/add: Vital Signs - 24 hr 08/11/23 15:00 08/11/23 15:30 08/11/23 19:00 Temperature 98.7 F 97.2 F L Pulse Rate 89 Pulse Rate [Right Pulse Oximeter] 94 75 Respiratory Rate 18 18 Blood Pressure [Le ft Arm] 143/77 H Blood Pressure [Ri ght Arm] 147/84 H Pulse Oximetry 97 98 Oxygen Delivery Me thod Room Air Room Air 08/11/23 23:00 08/11/23 23:00 08/11/23 23:00 Temperature 97.4 F L Pulse Rate 71 Pulse Rate [Right Pulse Oximeter] 75 70 Respiratory Rate 18 18 Blood Pressure [Le ft Arm] Blood Pressure [Ri ght Arm] Pulse Oximetry 94 Oxygen Delivery Me thod Room Air 08/12/23 03:00 08/12/23 07:45 08/12/23 08:00 Temperature 97.4 F L 99.5 F Pulse Rate 73 Pulse Rate [Right Pulse Oximeter] 71 95 Respiratory Rate 18 22 Blood Pressure [Le ft Arm] 109/77 147/96 H Blood Pressure [Ri ght Arm] Pulse Oximetry 94 95 Oxygen Delivery Me thod Room Air Room Air 08/12/23 10:48 Temperature 99.1 F Pulse Rate Pulse Rate [Right Pulse Oximeter] 76 Respiratory Rate 18 Blood Pressure [Le ft Arm] Blood Pressure [Ri ght Arm] 192/110 H Pulse Oximetry 96 Oxygen Delivery Me thod Room Air DS: Data Data Completed and Pending Labs on day of discharge: Labs from last 24 hours 08/12/23 06:24 WBC 19.24 H RBC 3.40 L Hgb 10.3 L Hct 30.6 L MCV 90 MCH 30 MCHC 34 Plt Count 355 VBG pH 7.460 H VBG pCO2 42 VBG pO2 59.0 H VBG HCO3 30 H Sodium 139 Potassium 3.1 L Chloride 104 Carbon Dioxide 28 Anion Gap 7 BUN 8 Creatinine 0.6 Estimated Creat Clear 39.21 Estimated GFR 98 Glucose 95 Calcium 8.4 C-Reactive Protein 7.9 H Preliminary micro results at discharge 08/10/23 09:56 Blood Culture - Preliminary Blood NO GROWTH AFTER 48 HOURS 08/10/23 09:48 Blood Culture - Preliminary Blood NO GROWTH AFTER 48 HOURS 08/10/23 11:10 Sputum Culture - Preliminary Sputum - Expectorated Sputum Culture in Progress Discharge Plan Discharge Disposition: Home, Self-Care Date of Admission: 08/11/23 13:47 Attending Provider on Discharge: Tisha Edmond Primary Care Provider: Stevenson Mitchell Condition: Stable Anticipated Discharge Date/Time: 08/12/23 09:14 Discharge Medications: New ipratropium-albuterol 0.5 mg-3 mg(2.5 mg base)/3 mL Solution For Nebulization 3 ml inhalation Q6-8H PRNQty: 30 0RF codeine-guaifenesin 10-100 mg/5 mL Liquid 10 ml PO QID PRNQty: 120 1RF (DME) nebulizer and compressor Device See Rx Instructions .Route Qty: 1 0RF Rx Instructions: As directed levofloxacin 500 mg tablet 500 mg PO DAILY Qty: 5 0RF prednisone 20 mg Tablet 40 mg PO DAILYWM Qty: 6 0RF lorazepam 0.5 mg Tablet 0.5 mg PO Q6H PRNQty: 15 0RF Continued ascorbic acid (vitamin C) 500 mg tablet 1 g PO DAILY cholecalciferol (vitamin D3) 25 mcg (1,000 unit) tablet 1,000 unit PO DAILY aspirin 81 mg tablet,delayed release (DR/EC) 81 mg PO QDAY celecoxib [Celebrex] 200 mg capsule 200 mg PO BID Qty: 60 3RF pantoprazole 40 mg tablet,delayed release (DR/EC) 40 mg PO DAILY modafinil 200 mg tablet 200 mg PO losartan 50 mg tablet 50 mg PO DAILY famotidine 20 mg tablet 20 mg PO BID buspirone 30 mg tablet 30 mg PO BID albuterol sulfate 90 mcg/actuation HFA aerosol inhaler 2 inh INHALATION Q4H PRN (Reason: shortness of breath or wheezing) Patient Comments: INHALE 1-2 PUFFS BY MOUTH EVERY 4 HOURS IF NEEDED FOR SHORTNESS OF BREATH OR WHEEZING bupropion HCl 300 mg tablet extended release 24 hr 300 mg PO QDAY pregabalin 50 mg capsule 50 mg PO HS acetaminophen 500 mg tablet 1,000 mg PO Q6H PRN oxycodone-acetaminophen [Percocet] 5-325 mg tablet 1 tab PO Q4-8H PRN (Reason: pain) Qty: 15 0RF duloxetine 60 mg capsule,delayed release(DR/EC) 120 mg PO DAILY amoxicillin 500 mg capsule 2,000 mg PO ONCE Qty: 4 3RF Rx Instructions: Take 4 capsules (2000mg) 1 hour prior to dental appointment. Discontinued oxycodone-acetaminophen 5-325 mg tablet 1 tab PO Q12H Discharge Orders: Discharge Order (Routine); Ordered 08/12/23 Ordered By: Tisha Edmond Patient Education: Lorazepam (By mouth), Prednisone (By mouth), Levofloxacin (By mouth), Ipratropium/Albuterol (By breathing), COPD (Chronic Obstructive Pulmonary Disease) (DC), How to Use a Nebulizer (DC), Pneumonia (DC) Additional Instructions: 1. Finish 5 more days of oral antibiotic. Finish three more days of prednisone. 2. For comfort/relief from coughing: I've sent a new nebulizer machine and Douneb solution. nebulize one of the medication bullets every 6-8 hours if it is helping. 3. Codeine cough syrup at night with a dose of Ativan might help you sleep. 4. Please see your MD for a referral for pulmonary medicine consult. 5. Future PCP ideas in [place]: Dr. Hightower, Dr. ReDr. Kraig hogan Activity Level: Activity as Tolerated Discharge Diet: Regular Follow Up Appointments: Stevenson Mitchell MD [Primary Care Provider] - Felix Ladd MD [Referring] - 08/23/23 11:10 am ([facility] for follow up.) Forms: [employer] Info Instructions
--- NOTE | 2023-08-12 15:18 | PC.NURSE ---
Discharge: The patient discharged home with her this afternoon via wheelchair. All medication education and discharge instructions were given. Fair condition at discharge. JENNIFER CHRISTIANSON RN
== END 2023-08-12 13:05 | disposition home or self-care (01) | DRG 190 ==
LOC: ED 09:25 → MEDSURG 11:06
PROVIDERS: Admitting Provider Family Medicine; Emergency Provider Family Medicine; PCP Family Medicine; Visit Provider Family Medicine
DX: J44.0 Chronic obstructive pulmonary disease with (acute) lower respiratory infection (principal); J18.9 Pneumonia, unspecified organism; D68.51 Activated protein C resistance; F11.20 Opioid dependence, uncomplicated; J45.909 Unspecified asthma, uncomplicated; F17.210 Nicotine dependence, cigarettes, uncomplicated; F32.9 Major depressive disorder, single episode, unspecified; F41.9 Anxiety disorder, unspecified; E86.0 Dehydration; G89.29 Other chronic pain; M54.16 Radiculopathy, lumbar region; K21.9 Gastro-esophageal reflux disease without esophagitis; E87.6 Hypokalemia; I10 Essential (primary) hypertension
CPT/HCPCS: 36415; 71045; 71275; 80048; 80076; 81001; 82803; 83605; 83735; 84145; 84484; 85025; 85027; 86140; 87040; 87070; 87081; 87086; 87449; 87631; 87651; 87899; 94640; 94664; 94761; 97116; 97162; 97165; 97535; 99285; A9270; G0378; J0456; J0696; J2060; J2930; J3480; J7030; J7120; J7512; Q9967

== ENCOUNTER 2024-04-15 13:52 | Emergency (ER) | payer MEDICARE, OTHER, SELFPAY ==
[2024-04-15 14:15] VITALS: BP 170/93; PULSE 70; RESP 16; TEMP 36.4; O2SAT 99
--- NOTE | 2024-04-15 14:21 | CRLHL7_ITS ---
For Patients: As a result of the Century Cures Act, medical imaging exams and procedure reports are released immediately into your electronic medical record. You may view this report before your referring provider. If you have questions, please contact your health care provider. CLINICAL HISTORY: Fall, headache. TECHNIQUE: Standard helical CT image acquisition through the head was performed. COMPARISON: None available. FINDINGS: No acute intracranial hemorrhage, extra-axial collection, mass effect or midline shift. Gordon-white matter differentiation is preserved. The ventricles are normal in size and morphology. Mild patchy hypoattenuation in the white matter of both hemispheres likely reflect sequela of mild chronic small vessel ischemia. No displaced calvarial fracture. The orbits are unremarkable. Very mild mucosal thickening of the right maxillary sinus. The mastoid air cells are well aerated. IMPRESSION: 1. No CT evidence of acute intracranial abnormality or closed head injury. 2. Findings likely reflecting sequela of mild chronic small vessel ischemia. Please note that all CT scans at this facility use dose modulation, iterative reconstruction, and/or weight-based dosing when appropriate to reduce radiation dose to as low as reasonably achievable. Dictated by Alonso Rhoades MD @ 04/15/2024 2:40:09 PM (Electronically Signed)
--- NOTE | 2024-04-15 14:22 | CRLHL7_ITS ---
For Patients: As a result of the Century Cures Act, medical imaging exams and procedure reports are released immediately into your electronic medical record. You may view this report before your referring provider. If you have questions, please contact your health care provider. CLINICAL HISTORY: Trauma. TECHNIQUE: Helical CT acquisition of the cervical spine was performed. Coronal and sagittal reformations were performed and interpreted. COMPARISON: Cervical spine radiographs dated 04/11/2024. FINDINGS: There is no evidence of acute displaced fracture or traumatic malalignment of the cervical spine. The facets are well aligned. Vertebral body heights are maintained without evidence of significant compression deformity. No evidence of significant trauma at the craniocervical junction. There is reversal of the normal cervical lordosis. Mild dextroconvex curvature of the cervical spine. Cervical spondylosis with moderately advanced loss of intervertebral disc height and endplate osteophytic ridging at C5-6 and C6-7. No evidence of severe spinal canal stenosis. Uncovertebral hypertrophy and facet arthropathy contributes to bilateral foraminal narrowing at C5-6 and C6-7. The visualized prevertebral soft tissues are unremarkable. The visualized lung apices are unremarkable. IMPRESSION: No acute displaced fracture or traumatic malalignment of the cervical spine. Please note that all CT scans at this facility use dose modulation, iterative reconstruction, and/or weight-based dosing when appropriate to reduce radiation dose to as low as reasonably achievable. Dictated by Alonso Rhoades MD @ 04/15/2024 2:42:58 PM (Electronically Signed)
--- NOTE | 2024-04-15 14:23 | ED.GENADULT ---
HPI - General Adult General Chief complaint: Headache/Migraine Stated complaint: nausea, vomiting, hit head a wk ago Time Seen by Provider: 04/15/24 13:53 History of Present Illness HPI narrative: Patient is a 68-year-old female who fell on the left parietal area of her scalp about a week ago. She had some soft tissue swelling there, saw Dr. Right carlisle, and was feeling a little bit better, but today had a headache and last night had a headache and just has not felt much better she has been nauseated no vomiting, she has been able to eat and drink but less than normal. She has no focal neurologic changes. She presents for evaluation. Related Data Home Medications ?Medication ?Instructions ?Recorded ?Confirmed bupropion HCl 300 mg 24 hr tablet, 300 mg PO QDAY 04/25/22 04/11/24 extended release buspirone 30 mg tablet 30 mg PO BID 04/25/22 04/11/24 ascorbic acid (vitamin C) 500 mg 1 g PO DAILY 04/28/22 04/11/24 tablet aspirin 81 mg tablet,delayed 81 mg PO QDAY 04/28/22 04/11/24 release cholecalciferol (vitamin D3) 25 1,000 unit PO DAILY 04/28/22 04/11/24 mcg (1,000 unit) tablet acetaminophen 500 mg tablet 1,000 mg PO Q6H PRN 05/25/22 04/11/24 pantoprazole 40 mg tablet,delayed 40 mg PO DAILY 09/03/22 04/11/24 release duloxetine 60 mg capsule,delayed 120 mg PO DAILY 08/10/23 04/11/24 release Previous Rx's ?Medication ?Instructions ?Recorded celecoxib 200 mg capsule (Celebrex) 200 mg PO BID #60 caps 08/10/22 lorazepam 0.5 mg tablet 0.5 mg PO Q6H PRN #15 tabs 08/12/23 codeine 10 mg-guaifenesin 100 mg/5 10 ml PO Q4-6H PRN cough #118 mL 09/27/23 mL oral liquid losartan 50 mg tablet 50 mg PO DAILY #90 tabs 10/17/23 famotidine 20 mg tablet 20 mg PO BID #180 tabs 12/02/23 albuterol sulfate 90 mcg/actuation 2 inh inhalation Q4H PRN shortness 03/21/24 aerosol inhaler of breath or wheezing #8.5 grams pregabalin 50 mg capsule 50 mg PO HS #90 caps 03/23/24 oxycodone-acetaminophen 5 mg-325 1 tab PO Q4-8H PRN pain #90 tabs 03/26/24 mg tablet (Percocet) Allergies Allergy/AdvReac Type Severity Reaction Status Date / Time aripiprazole [From Abilify] Allergy Intermediate Shortness Verified 04/11/24 15:18 of breath, itchy face Review of Systems Status of ROS: Reports: 6 or more systems reviewed and unremarkable except as noted in History and below [facility] Medical History Head, face & neck injury ?S19.9XXA - Unspecified injury of neck, initial encounter (ICD-10) ?S09.90XA - Unspecified injury of head, initial encounter (ICD-10) ?S09.93XA - Unspecified injury of face, initial encounter (ICD-10) Neck pain ?M54.2 - Cervicalgia (ICD-10) GERD (gastroesophageal reflux disease) ?K21.9 - Gastro-esophageal reflux disease without esophagitis (ICD-10) Acute hypokalemia ?E87.6 - Hypokalemia (ICD-10) Opioid dependence on maintenance agonist therapy, no symptoms ?F11.20 - Opioid dependence, uncomplicated (ICD-10) History of GI bleed ?Z87.19 - Personal history of other diseases of the digestive system (ICD-10) Renal infarct ?N28.0 - Ischemia and infarction of kidney (ICD-10) Osteoarthritis of right knee ?M17.11 - Unilateral primary osteoarthritis, right knee (ICD-10) Chronic radicular pain of lower back ?M54.16 - Radiculopathy, lumbar region (ICD-10) ?G89.29 - Other chronic pain (ICD-10) Major depressive disorder ?F32.9 - Major depressive disorder, single episode, unspecified (ICD-10) PUD (peptic ulcer disease) ?K27.9 - Peptic ulcer, site unspecified, unspecified as acute or chronic, without hemorrhage or perforation (ICD-10) Migraine ?G43.909 - Migraine, unspecified, not intractable, without status migrainosus (ICD-10) Unspecified asthma ?J45.909 - Unspecified asthma, uncomplicated (ICD-10) Tobacco use ?Z72.0 - Tobacco use (ICD-10) Sepsis ?A41.9 - Sepsis, unspecified organism (ICD-10) Arthritis of right shoulder region ?M19.011 - Primary osteoarthritis, right shoulder (ICD-10) Surgical History Status post medial meniscus repair (05/26/22) ?Z98.890 - Other specified postprocedural states (ICD-10) S/P right knee arthroscopy (10/18/22) ?Z98.890 - Other specified postprocedural states (ICD-10) History of endometrial ablation ?Z98.890 - Other specified postprocedural states (ICD-10) Hx of oophorectomy Hx of LASIK ?Z98.890 - Other specified postprocedural states (ICD-10) Hx of dilation and curettage ?Z98.890 - Other specified postprocedural states (ICD-10) Hx of vaginal hysterectomy ?Z90.710 - Acquired absence of both cervix and uterus (ICD-10) Hx of tubal ligation ?Z98.51 - Tubal ligation status (ICD-10) History of shoulder surgery ?Z98.890 - Other specified postprocedural states (ICD-10) 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 What is your current living situation?: I presently have a place to live Problems where you live: no known problems Problems where you live details: none In the past 12 months, utilities in danger of being shut off: no In past 12 months, lack of transportation kept you from medical appts, meetings, work, or getting things needed for daily living: no In the past 12 mos, have been you worried that your food would run out before you had money to buy more?: never true In the past 12 mos, the food you bought just didn't last and you didn't have money to buy more?: never true Smoking Status: Current every day smoker What tobacco products do you use: cigarettes Smoking packs per day: 1 Smoking cigarettes per day: 20.0 Smoking quit date/years: >15 years ago Do you use any of these nicotine containing products: None Second hand tobacco smoke exposure: No How often do you have a drink containing alcohol: monthly or less How many standard drinks containing alcohol do you have on a typical day: 1 or 2 How often do you have six or more drinks on one occasion: Never AUDIT-C Alcohol total score: 1 Non-prescribed substance use: denies use, opiods/painkillers and over the counter (eg: immodium) Caffeine: Yes (COFFEE AND DIET COKE) How often does anyone, including family, friends and others, physically hurt you: never How often does anyone, including family, friends and others, insult or talk down to you: never How often does anyone, including family, friends and others, threaten you with harm: never How often does anyone, including family, friends and others, scream or curse at you: never Little interest or pleasure in doing things: several days Feeling down, depressed, or hopeless: several days Are you using contraception or practicing any form of control: No (HYSTERECTOMY) service: No Exam Narrative: Exam Narrative: Objective: Patient's vital signs show elevated blood pressure, she is afebrile, she does appear in marked distress, prefers a darkened room. HEENT shows no facial asymmetry pupils react to light extra ocular movements intact Neck supple nontender but she does state that she has some mild cervical strap muscle tenderness bilaterally ; Neurologic is nonfocal in upper lower extremities. chest back abdomen and pelvis upper lower extremities unremarkable Const: Vital Signs, click to edit/add: Vital Signs - 24 hr 04/15/24 14:15 Temperature 97.5 F L Pulse Rate [Left P ulse Oximeter] 70 Respiratory Rate 16 Blood Pressure [Ri ght Upper Arm] 170/93 H Pulse Oximetry 99 Oxygen Delivery Me thod Room Air Course Vital Signs Vital signs: Initial Vital Signs Temperature 97.5 F L 04/15/24 14:15 Temperature Source Temporal Artery Scan 04/15/24 14:15 Pulse Rate 70 04/15/24 14:15 Respiratory Rate 16 04/15/24 14:15 Blood Pressure 170/93 H 04/15/24 14:15 Blood Pressure Mean 118 H 04/15/24 14:15 Blood Pressure Position Sitting 04/15/24 14:15 Pulse Oximetry 99 04/15/24 14:15 Oxygen Delivery Method Room Air 04/15/24 14:15 Vital Signs Temperature 97.5 F L 04/15/24 14:15 Pulse Rate 70 04/15/24 14:15 Respiratory Rate 16 04/15/24 14:15 Blood Pressure 170/93 H 04/15/24 14:15 Pulse Oximetry 99 04/15/24 14:15 Oxygen Delivery Method Room Air 04/15/24 14:15 Temperature 97.5 F L 04/15/24 14:15 Pulse Rate 70 04/15/24 14:15 Respiratory Rate 16 04/15/24 14:15 Blood Pressure 170/93 H 04/15/24 14:15 Pulse Oximetry 99 04/15/24 14:15 Oxygen Delivery Method Room Air 04/15/24 14:15 Medications Administered Medications: Discontinued Medications Generic Name Dose Route Start Last Admin Trade Name Freq PRN Reason Stop Dose Admin Acetaminophen 1,000 mg 04/15/24 15:01 04/15/24 15:05 Acetaminophen 500 Mg Tablet PO 04/15/24 15:02 1,000 mg ONCE ONE Administration Diphenhydramine HCl 25 mg 04/15/24 14:21 04/15/24 14:50 Diphenhydramine 50 Mg/Ml Inj IVP 04/15/24 14:22 25 mg ONCE ONE Administration Sodium Chloride 1,000 mls @ 6,000 mls/hr 04/15/24 14:30 04/15/24 14:50 0.9 % Sodium Chloride 1000 Ml IV 04/15/24 14:39 6,000 mls/hr .Q10M OFELIA Administration Ondansetron HCl 4 mg 04/15/24 14:21 04/15/24 14:50 Ondansetron 2 Mg/Ml Inj IVP 04/15/24 14:22 4 mg ONCE ONE Administration Medical Decision Making MDM Narrative Medical decision making narrative: [age] year white female fell about a week ago left parietal area from a simply losing her balance. She has a worsened headache and some nausea at this time I think she needs a head CT to rule out subdural hematoma or other intracranial pathology. Will also CT her neck as she says it is a little bit ?stiff? . Will give her some IV Benadryl and IV fluid IV Zofran and check her laboratory studies as well. Disposition pending findings. Addendum 2:44 p.m.: The patient's head and neck CT showed chronic degenerative changes some small-vessel disease but no acute fractures or bleeding. Will await her labs, give her medicines as above. Discharged based on her clinical status and findings in lab studies. Addendum 3:35 p.m.: The patient's head and neck CT showed chronic changes but no acute changes, she feels better, her fluid will be completed. Her laboratory studies CBC and Chem profile looks unremarkable. She is happy these look reassuring and she certainly could have some type of post concussive syndrome and I think she should rest light activity over the next few days adequate fluid intake, Tylenol as needed. She was comfortable this and family will get her home and return as needed. Lab Data Labs: Lab Results 04/15/24 Range/Units 14:50 WBC 6.43 (4.50-11.00) K/uL RBC 4.16 (4.00-5.20) m/uL Hgb 12.1 (12.0-16.0) gm/dL Hct 37.9 (33.0-51.0) % MCV 91 (80-100) fL MCH 29 (26-34) pg MCHC 32 (32-36) gm/dL RDW Coeff of Marcela 12.2 (11.5-15.5) % Plt Count 362 (140-440) K/uL Neut % (Auto) 45.4 (42.0-72.0) % Lymph % (Auto) 39.5 (20-44) % Rains % (Auto) 12.0 H (0.0-11.0) % Eos % (Auto) 2.3 (0.0-7.0) % Baso % (Auto) 0.3 (0.0-3.0) % Neut # (Auto) 2.92 (1.7-7.0) K/uL Lymph # (Auto) 2.54 (0.90-2.90) K/uL Rains # (Auto) 0.80 (0.00-0.90) K/UL Eos # (Auto) 0.15 (0.00-0.50) K/uL Baso # (Auto) 0.02 (0.00-0.30) K/uL Abs Immat Gran (auto) 0.03 (0.00-0.30) K/uL Imm/Tot Granulo (auto) 0.5 % Sodium 138 (135-149) mmol/L Potassium 3.9 (3.6-5.1) mmol/L Chloride 104 (96-114) mmol/L Carbon Dioxide 26 (20-32) mmol/L Anion Gap 8 (7-15) mEq/L BUN 10 (7-30) mg/dL Creatinine 0.8 (0.5-1.5) mg/dL Estimated GFR 81 ml/min Glucose 85 (60-115) mg/dL Calcium 9.2 (8.4-10.6) mg/dL Discharge Plan Discharge Clinical Impression: CHI (closed head injury) Patient Disposition: Home w/ Parent or Adult Condition: Improved Additional Instructions: Light activity, rest, Tylenol as needed for discomfort, recheck with regular doctor next 3-5 days not improving changes concerns worsening return to the ED at any time. Activity Level: Light activity Discharge Diet: Regular Prescriptions: No Action ascorbic acid (vitamin C) 500 mg tablet 1 g PO DAILY cholecalciferol (vitamin D3) 25 mcg (1,000 unit) tablet 1,000 unit PO DAILY aspirin 81 mg tablet,delayed release (DR/EC) 81 mg PO QDAY celecoxib [Celebrex] 200 mg capsule 200 mg PO BID Qty: 60 3RF pantoprazole 40 mg tablet,delayed release (DR/EC) 40 mg PO DAILY codeine-guaifenesin 10-100 mg/5 mL liquid 10 ml PO Q4-6H PRN (Reason: cough) Qty: 118 0RF buspirone 30 mg tablet 30 mg PO BID bupropion HCl 300 mg tablet extended release 24 hr 300 mg PO QDAY acetaminophen 500 mg tablet 1,000 mg PO Q6H PRN duloxetine 60 mg capsule,delayed release(DR/EC) 120 mg PO DAILY lorazepam 0.5 mg Tablet 0.5 mg PO Q6H PRNQty: 15 0RF losartan 50 mg tablet 50 mg PO DAILY Qty: 90 4RF famotidine 20 mg tablet 20 mg PO BID Qty: 180 3RF albuterol sulfate 90 mcg/actuation HFA aerosol inhaler 2 inh INHALATION Q4H PRN (Reason: shortness of breath or wheezing) Qty: 8.5 8RF pregabalin 50 mg capsule 50 mg PO HS Qty: 90 4RF oxycodone-acetaminophen [Percocet] 5-325 mg tablet 1 tab PO Q4-8H PRN (Reason: pain) Qty: 90 0RF Follow Up/Referrals: Ad Griffin MD [Primary Care Provider] - Stand Alone [facility] Info Instructions
[2024-04-15] MEDS: diphenhydrAMINE 50 MG/ML inj 25 MG IVP (14:50)
[2024-04-15] MEDS: ONDANSETRON 2 MG/ML inj 4 MG IVP (14:50)
[2024-04-15] MEDS: 0.9 % SODIUM CHLORIDE 1000 ml 1,000 ML 6000 ML IV (14:50)
[2024-04-15 14:58] LABS: Basophils Absolute Auto 0.02 K/uL (0.00-0.30); Basophils Percent Auto 0.3 % (0.0-3.0); Eosinophils Absolute Auto 0.15 K/uL (0.00-0.50); Eosinophils Percent Auto 2.3 % (0.0-7.0); Hematocrit 37.9 % (33.0-51.0); Hemoglobin* 12.1 gm/dL (12.0-16.0); Immature Granulocytes Abs Auto 0.03 K/uL (0.00-0.30); Immature Granulocytes Pct Auto 0.5 %; Lymphocytes Absolute Auto 2.54 K/uL (0.90-2.90); Lymphocytes Percent Auto 39.5 % (20-44); Mean Corpuscular HGB Conc 32 gm/dL (32-36); Mean Corpuscular Hemoglobin 29 pg (26-34); Mean Corpuscular Volume 91 fL (80-100); Neutrophils Absolute Auto 2.92 K/uL (1.7-7.0); Neutrophils Percent Auto 45.4 % (42.0-72.0); Platelet Count* 362 K/uL (140-440); RDW Coefficient of Variation % 12.2 % (11.5-15.5); Red Blood Count 4.16 m/uL (4.00-5.20); White Blood Count* 6.43 K/uL (4.50-11.00)
[2024-04-15 15:00] LABS: Slide Review Reflex No
--- OUTSIDE RECORDS SUMMARY | 2024-04-15 15:03 | XMS_ITS | Clinical Summary ---
Author Organization [employer] [facility] Address [place], [place] [address] Care Team Providers Care Associate Marketing Manager Name Role Phone Stevenson Mitchell MD Primary Care Provider Allergies Active Allergy Reactions Criticality Noted Date Comments Aripiprazole Dyspnea 04/03/2016 Medications Medication Sig Dispensed Refills Start Date End Date Status aspirin (ECOTRIN) 81 mg enteric coated tablet Take 1 tablet by mouth once daily with a meal. 0 05/04/2016 Active cholecalciferol (VITAMIN D) 1,000 unit tablet Take 1 tablet by mouth once daily. 0 10/16/2018 Active ascorbic acid, vitamin C, (VITAMIN C) 500 mg tablet Take 1 tablet by mouth once daily. 08/19/2020 Active acetaminophen (TYLENOL EXTRA STRGTH) 500 mg tablet Take 1-2 Tablets (500-1,000 mg) by mouth every 6 hours if needed. Max acetaminophen is 4000mg per 24 hours. 100 Tablet 08/25/2021 Active albuterol HFA (PRO-AIR; VENTOLIN; PROVENTIL) 90 mcg/actuation inhalerIndication s:COPD exacerbation (HC) Inhale 2 Puffs by mouth 4 times daily. 18 g 2 09/06/2022 Active pantoprazole (PROTONIX) 40 mg delayed-release tabletIndications :Abdominal pain, epigastric Take 1 Tablet (40 mg) by mouth two times daily before meals. 180 Tablet 3 05/16/2023 Active buPROPion (Wellbutrin XL) 300 mg Extended-Release tablet Take 1 Tablet (300 mg) by mouth once daily. 90 Tablet 3 06/09/2023 Active albuterol-ipratro pium (DUONEB) (2.5-0.5 mg) in 3 mL NEBULIZATION solution Inhale 3 mL via a nebulizer every 6-8 hours if needed. 30 mL 08/12/2023 Active LORazepam (ATIVAN) 0.5 mg tab Take 1 Tablet (0.5 mg) by mouth every 6 hours if needed. 15 Tablet 08/12/2023 Active nebulizer and compressor As directed 1 Each 08/12/2023 Active losartan (COZAAR) 50 mg tabletIndications :Essential hypertension TAKE 1 TABLET ONE TIME DAILY 90 Tablet 09/03/2023 Active famotidine (PEPCID) 20 mg tabletIndications :Chronic GERD TAKE 1 TABLET TWICE DAILY 180 Tablet 2 09/03/2023 Active codeine-guaiFENes in (ROBITUSSIN AC) 10-100 mg/5 mL liquid Take 10 mL by mouth every 4 hours if needed for cough. 118 mL 09/27/2023 Active pregabalin (LYRICA) 50 mg capsuleIndication s:Chest pain, pleuritic TAKE 1 CAPSULE AT BEDTIME 30 Capsule 10/03/2023 Active azithromycin (Zithromax Z-Leodan) 250 mg tablet Take two tablets (500 mg) by mouth today, then one tablet (250 mg) daily for days 2-5. 6 Tablet 11/29/2023 Active predniSONE (DELTASONE) 10 mg tablet Take 1 Tablet (10 mg) by mouth once daily. 14 Tablet 12/28/2023 Active predniSONE (DELTASONE) 5 mg tablet Take 1 Tablet (5 mg) by mouth once daily. 30 Tablet 2 12/28/2023 Active LORazepam (ATIVAN) 1 mg tablet Take 1 Tablet (1 mg) by mouth 2 times daily if needed. 60 Tablet 01/06/2024 Active busPIRone (BUSPAR) 30 mg tablet Take 1 Tablet (30 mg) by mouth two times daily. 180 Tablet 3 01/27/2024 Active DULoxetine (CYMBALTA) 60 mg Delayed-release capsule Take 1 Capsule (60 mg) by mouth two times daily. 180 Capsule 3 01/27/2024 Active oxyCODONE-acetami nophen (PERCOCET) 5-325 mg per tablet Take 1 Tablet by mouth every 4 to 8 hours if needed for pain. 90 Tablet 02/22/2024 Active armodafiniL (NUVIGIL) 150 mg tab tablet Take 1 Tablet (150 mg) by mouth once daily as needed, 30 Tablet 1 03/21/2024 Active albuterol HFA (PRO-AIR; VENTOLIN; PROVENTIL) 90 mcg/actuation inhaler Inhale 2 Puffs by mouth every 4 hours if needed for shortness of breath or wheezing 18 g 8 03/21/2024 Active oxyCODONE-acetami nophen (PERCOCET) 5-325 mg per tablet Take 1 Tablet by mouth every 4 to 8 hours if needed for pain. 90 Tablet 03/26/2024 Active LORazepam (ATIVAN) 1 mg tabletIndications :Anxiety Take 1 Tablet (1 mg) by mouth 2 times daily if needed for Anxiety. 60 Tablet 05/16/2023 03/22/20 24 Discontinu ed(Reorder (E-cancel not sent)) albuterol HFA (PRO-AIR; VENTOLIN; PROVENTIL) 90 mcg/actuation inhaler Inhale 2 Puffs by mouth every 4 hours if needed for shortness of breath or wheezing. 18 g 2 11/23/2023 03/21/20 24 Discontinu ed(Reorder (E-cancel not sent)) armodafiniL (NUVIGIL) 150 mg tab tablet Take 1 Tablet (150 mg) by mouth once daily. 30 Tablet 1 01/27/2024 03/21/20 24 Discontinu ed(Reorder (E-cancel not sent)) Active Problems Problem Noted Date Diagnosed Date Opioid dependence on mainten ance agonist therapy, no symptoms 09/14/2023 Major depressive disorder, r ecurrent severe without psychotic features 12/06/2021 Factor V Leiden mutation 12/06/2021 Acute cystitis without hematuria 10/30/2019 Dysuria 10/27/2019 Post-menopausal bleeding 10/26/2019 Recurrent UTI 10/26/2019 Sepsis 10/26/2019 Esophagitis 04/04/2016 PUD (peptic ulcer disease) 04/04/2016 Gastrointestinal hemorrhage with hematemesis 11/2015 compliance UA done 08/19/[address] Mitchell 10/15 Overview: Stable, compliant Percocet 5-325, #60/month Vascular disorders of kidney 09/04/2007 Unspecified disorder of mens truation and other abnormal bleeding from female genital tract 09/04/2007 Migraine, unspecified, witho ut mention of intractable migraine without mention of status migrainosus 09/04/2007 Unspecified essential hypertension 09/04/2007 Paroxysmal supraventricular tachycardia 09/04/20 07 Other specified symptom asso ciated with female genital organs 04/03/2007 Lumbago 04/03/2007 Unspecified asthma(493.90) 04/03/2007 Neuralgia, neuritis, and radiculitis, unspecifie d 01/15/2007 Overview: Residual neuropathic pain following episode of shingles in 04/2006. On gabapentin. 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 anterior disc herniation These findings were similar to findings on a 2004 MRI Tobacco use disorder 03/30/2006 Screen for colon cancer Resolved Problems Problem Noted Date Diagnosed Date Resolved Date Infarction of kidney 12/06/2021 023 Chronic bronchitis 12/06/2021 3 Depressive disorder, not elsewhere classified 09/04/20 07 02/17/2012 Anxiety state, unspecified 09/04/2007 0 02/17/2012 Unspecified asthma(493.90) 09/04/2007 0 02/17/2012 Unspecified essential hypertension 04/03/2007 02/17/2012 Depressive disorder, not elsewhere classified 04/03/20 07 02/17/2012 Migraine, unspecified, witho ut mention of intractable migraine without mention of status migrainosus 04/03/2007 02/17/2012 Anxiety state, unspecified 04/03/2007 0 02/17/2012 Paroxysmal supraventricular tachycardia 04/03/2007 02/17/2012 Unspecified essential hypertension 01/15/2007 02/17/2012 Unspecified asthma(493.90) 09/27/2006 0 02/17/2012 Nausea with vomiting 03/30/2006 006 Immunizations Name Administration Dates Next Due COVID-19 vaccine (Woofound NTMyPrepApp 30mcg/0.3mL) PF, MDV 01/27/2021,01/06/2021 DT (Age < 7 years) 09/13/2006,03/17/2002 Hepatitis A (Adult) 05/26/2004,11/26/2003 Hepatitis B (Adult) 08/03/1993,03/03/1993,1992 Hepatitis B, Unspecified 01/12/1995,06/1995,08/03/1993,1992,01/31/1993 Influenza Virus, Unspecified 07/07/2012, 08/17/2011,09/17/2010,2008,08/03/2008 Influenza, IIV3 (Age >=3 years) 07/20/20 13,07/10/2012,08/17/2011,2009,07/30/2008,08/03/2006 Influenza, IIV4 08/19/2020, 9,08/15/2018,2016,07/19/2016,08/11/2015 Influenza, Inactivated AIIV4 (Age 65+ Years) Preserv Free 07/22/2023,08/02/2022,07/17/2021 Pneumococcal Poly,23-Valent (Pneumovax) 05/12/2013,04/17/2007,08/03/2003 Pneumococcal conj 13-Valent (Prevnar 13) 08/11/2015 Td (Age >=7 Years) 09/13/2006 Tdap 11/07/2015 Family History Medical History Relation Name Comments Cancer Father LUNG AND LEUKEM [place] Diabetes Father Diabetes Maternal Grandmother Stroke Maternal Grandmother CVA Cancer-breast Mother Clotting disorder Other Other Other Maternal side:?h/o lung ca, myeloma and leukemia Other Sister 3 LEUKEMIA Relation Name Status Comments Brother 1 Alive Brother 2 Alive Brother 3 Alive Brother 4 Alive Daughter 1 Alive Daughter 2 Alive Daughter 3 Alive Father (Age 62) Maternal Grandfather Maternal Grandmother Mother Alive Other Paternal Grandfather Paternal Grandmother Sister 1 Alive Sister 2 (Age 4) Sister 3 Son 1 Alive Son 2 Alive Son 3 Alive Social History Tobacco Use Types Packs/Day Years Used Date Smoking Tobacco: Former Cigarettes 1 25 0 06/17/1994 - 06/17/2019 Smokeless Tobacco: Never Tobacco Cessation:Counseling Given: Not Answered Comments:e cigs Alcohol Use Standard Drinks/Week Comments No 0 (1 standard drink = 0.6 oz pure alcohol) Quit 2000 - h/o alcohol abuse and rehab, occasional drinks PHQ-2 Answer Date Recorded PHQ-2 TOTAL SCORE 4 12/03/2022 Social Connections Answer Date Recorded Frequency of Communication with Friends and Fami ly 0 04/07/2023 Financial Resource Strain Answer Date R ecorded Difficulty of Paying Living Expenses 3 04/07/2023 Difficulty of Paying Living Expenses Not on file 04/07/2023 Food Insecurity Answer Date Recorded Worried About Running Out of Food in the Last Ye ar 1 04/07/2023 Transportation Needs Answer Date Record ed Lack of Transportation (Medical) 1 04/07/2023 Housing Stability Answer Date Recorded Unable to Pay for Housing in the Last Year 1 04/07/2023 Sex and Gender Information Value Date Recorded Sex Assigned at Not on file Gender Identity Not on file Sexual Orientation Not on file Obstetrics History Para Term AB IAB SAB Ectopic Multiple Livin g Live Births 3 3 3 Date Outcome GA Total Labor Labor/2nd/3rd Weight Sex Type Anes PTL Nelda A1 A5 Name Clin Para Para Para Comments adopted 3 children Last Filed Vital Signs Vital Sign Reading Time Taken Comments Blood Pressure 110/64 09/13/2023 12:55 PM NURSE SPECIALIST Pulse 76 09/13/2023 12:55 PM NURSE SPECIALIST Temperature 36.7 ??C (98.1 ??F) 08/04/2023 10:49 AM C DT Respiratory Rate 16 09/13/2023 12:55 PM NURSE SPECIALIST Oxygen Saturation 95% 08/04/2023 12:16 PM CDT Inhaled Oxygen Concentration - - Weight 62.4 kg (137 lb 8 oz) 09/13/2023 12:55 PM NURSE SPECIALIST Height 154.9 cm (5' 1) 08/04/2023 10:49 AM CDT Body Mass Index 25.98 08/04/2023 10:49 AM CDT Plan of Treatment Health Maintenance Due Date Last Done Comments Hepatitis C screening for ag e 18-79 1974 Zoster (shingles) series for age 50+ (1 of 2) 2006 Lipids for age 45-75 06/07/2011 06/07/2006 Mammogram for age 45-75 07/05/2019 07/05/20 18, 06/16/2018, 07/03/2011, Additional history exists Low Dose CT (for lung CA) ag e 50-80 10/23/2019 10/23/2018, 01/17/2007, 04/04/2006 DEXA/DXA scan for age 65+ 2021 Medicare Wellness for age 65+ 2021 Pneumococcal series for age 65+ (3 of 3 - PPSV23 or PCV20) 2021 08/11/2015, 05/12/2013, 04/17/2007, Additional history exists Fecal testing non-DNA (FIT,FOBT,iFOBT) for age 45-75 05/06/2021 05/06/2020 COVID-19 vaccine series (3 - 2022-24 season) 2023 01/27/2021, 01/06/2021 Depression screening for age 12+ 12/04/2023 12/03/2022, 12/04/2021, 05/28/2021, Additional history exists BMI (ht and wt on same day) for age 18+ 05/16/2024 05/16/2023, 10/08/2022, 05/21/2022, Additional history exists Influenza for age 65+ 06/03/2024 07/22/2023 , 08/02/2022, 07/17/2021, Additional history exists Tetanus booster 11/07/2025 11/07/2015, 09/13/2006 Tdap Completed 11/07/2015, 11/07/2015 Procedures Procedure Name Priority Date/Time Associated Diagnosis Comments OCCULT BLOOD IFOBT STOOL Routine 05/06/2020 12:00 PM CDT Chronic diarrhea CT CHEST WO Routine 10/23/2018 7:38 AM NURSE SPECIALIST Smoking addiction Chronic night sweats Cough XR MAMMO UNI ADDL VIEWS LEFT Routine 07/05/2018 11:03 AM CDT Nodular chondrodermatitis, left LIPID PANEL Timed 06/07/2006 11:08 AM CDT from Last 3 Months or Most Recently Relevant to Health Maintenance Results * OCCULT BLOOD IFOBT STOOL (05/06/2020 12:00 PM CDT) STOOL BLOOD ,IFOBT Negative Negative 05/06/2020 4:45 PM CDT [facility] Stool STOOL SPECIMEN / Unknown Non-Blood / Unknown 05/06/2020 12:00 PM CDT 05/06/2020 4:30 PM CDT Damien Ortiz MD LABORATORY [facility] [address] [place] [address] * CT CHEST WO (10/23/2018 7:38 AM NURSE SPECIALIST) Anatomical Region Laterality Modality CHEST, THORAX, HEART Computed To mography 10/23/2018 8:51 AM NURSE SPECIALIST Narrative 10/23/2018 8:51 AM NURSE SPECIALIST INDICATION: 63 year-old female. Smoking addiction. Chronic night sweats. Cough. TECHNIQUE: Noncontrast chest CT. COMPARISON: Correlation is made with a two-view chest x-ray September 27, 2018. Comparison is made to a contrast-enhanced chest CT May 09, 2013. FINDINGS: Densely calcified granuloma right lung base. Small calcified right hilar lymph nodes. Both lungs are otherwise clear. The previously identified left lower lobe infiltrate on May 09, 2013 has resolved. No pleural or pericardial effusions. No thoracic lymphadenopathy. Hyperinflation. Attenuation of the pulmonary vascularity. The findings are compatible with emphysematous type change. There are postsurgical changes within the right humeral head. Surgically absent gallbladder. Mild thoracolumbar scoliotic curvature. The included thyroid gland, and adrenal glands are normal. No splenomegaly. Probable cortical scarring right kidney seen previously. Incidental note is made of a 9 mm nodule within the medial right breast image 51 series 2 seen previously and unchanged. IMPRESSION: 1. Emphysematous type change. 2. Granulomatous changes right hemithorax. 3. No evidence for occult malignancy or metastatic lung disease. Please note that all CT scans at this facility use dose modulation, iterative reconstruction, and/or weight-based dosing when appropriate to reduce radiation dose to as low as reasonably achievable. Dictated by Rikki Burnett MD @ Oct 23 2018 ??8:51AM (Electronically Signed) Procedure Note Rikki Burnett MD - 10/23/2018 INDICATION: 63 year-old female. Smoking addiction. Chronic night sweats. Cough. TECHNIQUE: Noncontrast chest CT. COMPARISON: Correlation is made with a two-view chest x-ray September 27, 2018. Comparison is made to a contrast-enhanced chest CT May 09, 2013. FINDINGS: Densely calcified granuloma right lung base. Small calcified right hilarlymph nodes. Both lungs are otherwise clear. The previously identifiedleft lower lobe infiltrate on May 09, 2013 has resolved. No pleural orpericardial effusions. No thoracic lymphadenopathy. Hyperinflation.Attenuation of the pulmonary vascularity. The findings are compatible withemphysematous type change. There are postsurgical changes within the right humeral head. Surgicallyabsent gallbladder. Mild thoracolumbar scoliotic curvature. The includedthyroid gland, and adrenal glands are normal. No splenomegaly. Probablecortical scarring right kidney seen previously. Incidental note is made ofa 9 mm nodule within the medial right breast image 51 series 2 seenpreviously and unchanged. IMPRESSION: 1. Emphysematous type change. 2. Granulomatous changes right hemithorax. 3. No evidence for occult malignancy or metastatic lung disease. Please note that all CT scans at this facility use dose modulation,iterative reconstruction, and/or weight-based dosing when appropriate toreduce radiation dose to as low as reasonably achievable. Dictated by Rikki Burnett MD @ Oct 23 2018 8:51AM (Electronically Signed) Damien Ortiz MD CT * XR MAMMO UNI ADDL VIEWS LEFT (07/05/2018 11:03 AM CDT) Anatomical Region Laterality Modality BREASTS, Breast Left Mammography , Other 07/05/2018 11:5 5 AM CDT Impressions 07/06/2018 6:58 AM CDT Nodular densities in the medial aspect of both breasts are stable when compared to the mammograms of 11 years ago. There is no evidence of malignancy. Recommend annual screening mammography. BI-RADS category 2: Benign Dictated by: Dannielle Rankin MD @07/05/2018 11:55:14 AM Narrative 07/06/2018 6:58 AM CDT LEFT DIGITAL DIAGNOSTIC MAMMOGRAM, 07/05/2018 INDICATION: Nodular densities seen in both breasts on screening mammogram 06/16/2018. TECHNIQUE: Diagnostic LEFT mammogram. COMPARISON: 01/19/2007. FINDINGS: The breasts are heterogeneously dense. When the previous screening study was read there were no comparison views. The nodular density in both breasts remain relatively stable when compared to the previous studies. Focal compression views over the medial LEFT breast indicate stability over 11 years and is consistent with a benign finding. Damien Ortiz MD MAMMO * LIPID PANEL (06/07/2006 11:08 AM CDT) CHOLESTEROL,TOTAL 142 110 - 199 mg/dL [facility] TRIGLYCERIDES 102 <150 mg/dL [facility] HDL CHOLESTEROL 54 >40 mg/dL [facility] CHOL/HDL RATIO 2.63 <4.51 [facility] LDL CHOLESTEROL 68 <131 mg/dL [facility] PATIENT STATUS Non-Fasti ng [facility] 06/07/2006 11:0 8 AM CDT 06/07/2006 11:08 AM CDT Mary Kate Calzada MD CHEMISTRY [facility] [address] [place] [address] from Last 3 Months or Most Recently Relevant to Health Maintenance Advance Directives Documents on File Type Date Recorded Patient Clam Sorter Expl anation Healthcare Directive 06/16/2018 12:00 AM Healthcare Directive 06/06/2018 11:19 AM * Full Code (Latest Code Status on File) Date Activated Date Inactivated Comments 10/26/2019 7:57 PM 10/30/2019 6:09 PM * Full Code Date Activated Date Inactivated Comments 06/30/2017 11:31 AM 06/30/2017 4:15 PM * Full Code Date Activated Date Inactivated Comments 04/03/2016 2:52 PM 04/06/2016 1:55 PM * Full Code Date Activated Date Inactivated Comments 09/05/2007 5:32 AM 09/05/2007 12:51 PM * Full Code Date Activated Date Inactivated Comments 04/04/2007 6:21 AM 04/04/2007 3:04 PM Care Teams Associate Marketing Manager Relationship Specialty Start Date End Date Stevenson Mitchell MD [address] [place] [address] PCP - General Family Practice 08/22/20
[2024-04-15] MEDS: ACETAMINOPHEN 500 MG TABLET 1000 MG PO (15:05)
[2024-04-15 15:12] LABS: Chloride* 104 mmol/L (96-114)
[2024-04-15 15:13] LABS: Potassium* 3.9 mmol/L (3.6-5.1); Sodium* 138 mmol/L (135-149)
[2024-04-15 15:15] LABS: Creatinine* 0.8 mg/dL (0.5-1.5); Estimated Glomerular Filt Rate 81 ml/min
[2024-04-15 15:16] LABS: Anion Gap 8 mEq/L (7-15); Blood Urea Nitrogen* 10 mg/dL (7-30); Calcium* 9.2 mg/dL (8.4-10.6); Carbon Dioxide* 26 mmol/L (20-32); Glucose* 85 mg/dL (60-115)
== END 2024-04-15 15:53 | disposition home or self-care (01) ==
PROVIDERS: Emergency Provider Family Medicine; PCP Internal Medicine
DX: S09.90XA Unspecified injury of head, initial encounter (principal); W19.XXXA Unspecified fall, initial encounter
CPT/HCPCS: 36415; 70450; 72125; 80048; 85025; 96374; 96375; 99284; 99285; A9270; J1200; J2405; J7030

== ENCOUNTER 2024-07-05 13:34 | Outpatient (CLI) | payer MEDICARE, OTHER, SELFPAY ==
--- OUTSIDE RECORDS SUMMARY | 2024-07-05 13:38 | XMS_ITS | Clinical Summary ---
Author Organization [facility] Address [place], [place] [address] Care Team Providers Care Resistor Inspector Name Role Phone Stevenson Mitchell MD Primary Care Provider Allergies Active Allergy Reactions Criticality Noted Date Comments Aripiprazole Dyspnea 04/03/2016 Medications Medication Sig Dispensed Refills Start Date End Date Status aspirin (ECOTRIN) 81 mg enteric coated tablet Take 1 tablet by mouth once daily with a meal. 0 6 Active cholecalciferol (VITAMIN D) 1,000 unit tablet Take 1 tablet by mouth once daily. 0 9 Active ascorbic acid, vitamin C, (VITAMIN C) 500 mg tablet Take 1 tablet by mouth once daily. 0 Active acetaminophen (TYLENOL EXTRA STRGTH) 500 mg tablet Take 1-2 Tablets (500-1,000 mg) by mouth every 6 hours if needed. Max acetaminophen is 4000mg per 24 hours. 100 Tablet 1 Active albuterol HFA (PRO-AIR; VENTOLIN; PROVENTIL) 90 mcg/actuation inhalerIndicatio ns:COPD exacerbation (HC) Inhale 2 Puffs by mouth 4 times daily. 18 g 2 2 Active buPROPion (Wellbutrin XL) 300 mg Extended-Release tablet Take 1 Tablet (300 mg) by mouth once daily. 90 Tablet 3 3 Active albuterol-ipratr opium (DUONEB) (2.5-0.5 mg) in 3 mL NEBULIZATION solution Inhale 3 mL via a nebulizer every 6-8 hours if needed. 30 mL 3 Active LORazepam (ATIVAN) 0.5 mg tab Take 1 Tablet (0.5 mg) by mouth every 6 hours if needed. 15 Tablet 3 Active nebulizer and compressor As directed 1 Each 3 Active losartan (COZAAR) 50 mg tabletIndication s:Essential hypertension TAKE 1 TABLET ONE TIME DAILY 90 Tablet 3 Active famotidine (PEPCID) 20 mg tabletIndication s:Chronic GERD TAKE 1 TABLET TWICE DAILY 180 Tablet 2 3 Active codeine-guaiFENe sin (ROBITUSSIN AC) 10-100 mg/5 mL liquid Take 10 mL by mouth every 4 hours if needed for cough. 118 mL 3 Active pregabalin (LYRICA) 50 mg capsuleIndicatio ns:Chest pain, pleuritic TAKE 1 CAPSULE AT BEDTIME 30 Capsule 4 Active azithromycin (Zithromax Z-Leodan) 250 mg tablet Take two tablets (500 mg) by mouth today, then one tablet (250 mg) daily for days 2-5. 6 Tablet 4 Active predniSONE (DELTASONE) 10 mg tablet Take 1 Tablet (10 mg) by mouth once daily. 14 Tablet 4 Active predniSONE (DELTASONE) 5 mg tablet Take 1 Tablet (5 mg) by mouth once daily. 30 Tablet 2 4 Active LORazepam (ATIVAN) 1 mg tablet Take 1 Tablet (1 mg) by mouth 2 times daily if needed. 60 Tablet 4 Active busPIRone (BUSPAR) 30 mg tablet Take 1 Tablet (30 mg) by mouth two times daily. 180 Tablet 3 4 Active DULoxetine (CYMBALTA) 60 mg Delayed-release capsule Take 1 Capsule (60 mg) by mouth two times daily. 180 Capsule 3 4 Active armodafiniL (NUVIGIL) 150 mg tab tablet Take 1 Tablet (150 mg) by mouth once daily as needed, 30 Tablet 1 4 Active albuterol HFA (PRO-AIR; VENTOLIN; PROVENTIL) 90 mcg/actuation inhaler Inhale 2 Puffs by mouth every 4 hours if needed for shortness of breath or wheezing 18 g 8 4 Active azithromycin (ZITHROMAX) 250 mg tablet Take 2 tablets (500 mg) today (day 1), then1 tablet (250 mg) for 4 days (days 2-5). 6 Tablet 1 4 Active codeine-guaiFENe sin 10-100 mg/5 mL liquid Take 10 mL by mouth every 4-6 hours if needed for cough. 118 mL 4 Active predniSONE (DELTASONE) 20 mg tablet Take 1 Tablet (20 mg) by mouth two times daily with meals. 10 Tablet 4 Active pantoprazole (PROTONIX) 40 mg delayed-release tabletIndication s:Abdominal pain, epigastric TAKE 1 TABLET (40 MG) BY MOUTH TWO TIMES DAILY BEFORE MEALS. 180 Tablet 4 Active oxyCODONE-acetam inophen (PERCOCET) 5-325 mg per tablet Take 1 Tablet by mouth every 4 to 8 hours if needed for pain. 90 Tablet 4 Active pantoprazole (PROTONIX) 40 mg delayed-release tabletIndication s:Abdominal pain, epigastric Take 1 Tablet (40 mg) by mouth two times daily before meals. 180 Tablet 3 3 024 Discontinued oxyCODONE-acetam inophen (PERCOCET) 5-325 mg per tablet Take 1 Tablet by mouth every 4 to 8 hours if needed for pain. 90 Tablet 4 024 Discontinued(Re order (E-cancel not sent)) oxyCODONE-acetam inophen (PERCOCET) 5-325 mg per tablet Take 1 Tablet by mouth every 4 to 8 hours if needed for pain. 90 Tablet 4 024 Discontinued(Re order (E-cancel not sent)) oxyCODONE-acetam inophen (PERCOCET) 5-325 mg per tablet Take 1 Tablet by mouth every 4 to 8 hours if needed for pain. 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 On gabapentin. 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 no evidence of mesenteric emboli by CT abdomen lupus anticoagulant and antocardiolipin antibody negative homocysteine level normal DEPRESSION and ANXIETY 03/30/2006 Anxiety state, unspecified 03/30/2006 Overview (03/30/2006): see depression Backache, unspecified 03/30/2006 Overview (03/31/2006): MRI 03/29/06 No central canal stenosis or [...] 0 02/17/2012 Nausea with vomiting 03/30/2006 006 Encounters Date Type Department Care Team Description 06/29/[address] [address] Stevenson Mitchell MD Refill Request (Pantoprazole) from Last 3 Months Immunizations Name Administration Dates Next Due COVID-19 vaccine ([employer] 30mcg/0.3mL) NAY REID 01/27/2021,01/06/2021 DT (Age < 7 years) 09/13/2006,03/17/2002 [...] of Communication with Friends and Fami ly Not on file 04/16/2024 Financial Resource Strain Answer Date R ecorded [...] Comments Blood Pressure 110/64 09/13/2023 12:55 PM HOURLY CAREGIVER Pulse 76 09/13/2023 12:55 PM HOURLY CAREGIVER Temperature 36.7 ??C (98.1 ??F) 08/04/2023 10:49 AM C DT Respiratory Rate 16 09/13/2023 12:55 PM HOURLY CAREGIVER Oxygen Saturation 95% 08/04/2023 12:16 PM CDT Inhaled Oxygen Concentration - - Weight 62.4 kg (137 lb 8 oz) 09/13/2023 12:55 PM HOURLY CAREGIVER Height 154.9 cm (5' 1) 08/04/2023 10:49 [...] non-DNA (FIT,FOBT,iFOBT) for age 45-75 05/06/2021 05/06/2020 Depression screening for age 12+ 12/04/2023 12/03/2022, 12/04/2021, 05/28/2021, Additional history exists BMI (ht and wt on same day) for age 18+ 05/16/2024 05/16/2023, 10/08/2022, 05/21/2022, Additional history exists COVID-19 vaccine series ( season) 2024 01/27/2021, 01/06/2021 Influenza for age 65+ 06/03/2024 07/22/2023 , 08/02/2022, 07/17/2021, Additional history exists Tetanus booster 11/07/2025 11/07/2015, 09/13/2006 Tdap Completed 11/07/2015, 11/07/2015 Procedures Procedure Name Priority Date/Time Associated Diagnosis Comments OCCULT BLOOD IFOBT STOOL Routine 05/06/2020 12:00 PM CDT Chronic diarrhea CT CHEST WO Routine 10/23/2018 7:38 AM HOURLY CAREGIVER Smoking addiction Chronic night sweats Cough XR MAMMO UNI ADDL VIEWS LEFT Routine 07/05/2018 11:03 AM CDT Nodular chondrodermatitis, left LIPID PANEL Timed 06/07/2006 11:08 AM CDT from Last 3 Months or Most Recently Relevant to Health Maintenance Results * OCCULT BLOOD IFOBT STOOL (05/06/2020 12:00 PM CDT) STOOL BLOOD ,IFOBT Negative Negative 05/06/2020 4:45 PM CDT [facility] Stool STOOL SPECIMEN / Unknown Non-Blood / Unknown 05/06/2020 12:00 PM CDT 05/06/2020 4:30 PM CDT Damien Ortiz MD LABORATORY [facility] [address] [place] [address] * CT CHEST WO (10/23/2018 7:38 AM HOURLY CAREGIVER) Anatomical Region Laterality Modality CHEST, THORAX, HEART Computed To mography 10/23/2018 8:51 AM HOURLY CAREGIVER Narrative 10/23/2018 8:51 AM HOURLY CAREGIVER INDICATION: 63 year-old female. Smoking addiction. Chronic [...] CDT) CHOLESTEROL,TOTAL 142 110 - 199 mg/dL [facility] TRIGLYCERIDES 102 <150 mg/dL [facility] HDL CHOLESTEROL 54 >40 mg/dL [facility] CHOL/HDL RATIO 2.63 <4.51 [facility] LDL CHOLESTEROL 68 <131 mg/dL [facility] PATIENT STATUS Non-Fasti ng [facility] 06/07/2006 11:0 8 AM CDT 06/07/2006 11:08 AM CDT Mary Kate Calzada MD CHEMISTRY [facility] [address] [place] [address] from Last 3 Months or Most Recently Relevant to Health Maintenance Advance Directives Documents on File Type Date Recorded Patient Area Manager Expl anation Healthcare Directive 06/16/2018 12:00 AM [...] 6:21 AM 04/04/2007 3:04 PM Care Teams Resistor Inspector Relationship Specialty Start Date End Date Stevenson Mitchell MD [address] [facility] [place] [address] PCP - General Family Practice 08/22/20
== END 2024-07-05 13:35 | disposition home or self-care (01) ==
PROVIDERS: PCP Internal Medicine; Visit Provider Internal Medicine
DX: E06.3 Autoimmune thyroiditis (principal); I10 Essential (primary) hypertension
CPT/HCPCS: 84443; 86376; 86800

== ENCOUNTER 2024-12-23 09:03 | Emergency (ER) | payer MEDICARE, OTHER, SELFPAY ==
--- OUTSIDE RECORDS SUMMARY | 2024-12-23 09:05 | XMS_ITS | Clinical Summary ---
Author Organization [email or web address] Address [address] [place] [address] Care Team Providers Care Turning Lathe Tender Name Role Phone Stevenson Mitchell MD Primary Care Provider Allergies Active Allergy Reactions Criticality Noted Date Comments Aripiprazole Dyspnea 04/03/2016 Medications aspirin (ECOTRIN) 81 mg enteric coated tablet Take 1 tablet by mouth once daily with a meal. 0 016 Active cholecalcifero l (VITAMIN D) 1,000 unit tablet Take 1 tablet by mouth once daily. 0 019 Active ascorbic acid, vitamin C, (VITAMIN C) 500 mg tablet Take 1 tablet by mouth once daily. 020 Active acetaminophen (TYLENOL EXTRA STRGTH) 500 mg tablet Take 1-2 Tablets (500-1,000 mg) by mouth every 6 hours if needed. Max acetaminophen is 4000mg per 24 hours. 100 Tablet 08/25/20 21 12:03 PM SHIRRING MACHINE OPERATOR AUTOMATIC 021 Active albuterol HFA (PRO-AIR; VENTOLIN; PROVENTIL) 90 mcg/actuation inhalerIndicat ions:COPD exacerbation (HC) Inhale 2 Puffs by mouth 4 times daily. 18 g 2 08/11/20 23 9:55 AM SHIRRING MACHINE OPERATOR AUTOMATIC 022 Active buPROPion (Wellbutrin XL) 300 mg Extended-Relea se tablet Take 1 Tablet (300 mg) by mouth once daily. 90 Tablet 3 023 Active albuterol-ipra tropium (DUONEB) (2.5-0.5 mg) in 3 mL NEBULIZATION solution Inhale 3 mL via a nebulizer every 6-8 hours if needed. 30 mL 08/12/20 23 11:02 AM SHIRRING MACHINE OPERATOR AUTOMATIC 023 Active LORazepam (ATIVAN) 0.5 mg tab Take 1 Tablet (0.5 mg) by mouth every 6 hours if needed. 15 Tablet 08/12/20 23 11:02 AM SHIRRING MACHINE OPERATOR AUTOMATIC 023 Active nebulizer and compressor As directed 1 Each 08/12/20 23 11:02 AM SHIRRING MACHINE OPERATOR AUTOMATIC 023 Active losartan (COZAAR) 50 mg tabletIndicati ons:Essential hypertension TAKE 1 TABLET ONE TIME DAILY 90 Tablet 023 Active famotidine (PEPCID) 20 mg tabletIndicati ons:Chronic GERD TAKE 1 TABLET TWICE DAILY 180 Tablet 2 023 Active codeine-guaiFE Nesin (ROBITUSSIN AC) 10-100 mg/5 mL liquid Take 10 mL by mouth every 4 hours if needed for cough. 118 mL 09/27/20 23 2:59 PM SHIRRING MACHINE OPERATOR AUTOMATIC 023 Active pregabalin (LYRICA) 50 mg capsuleIndicat ions:Chest pain, pleuritic TAKE 1 CAPSULE AT BEDTIME 30 Capsule 024 Active azithromycin (Zithromax Z-Leodan) 250 mg tablet Take two tablets (500 mg) by mouth today, then one tablet (250 mg) daily for days 2-5. 6 Tablet 11/29/19 24 2:03 PM SHIRRING MACHINE OPERATOR AUTOMATIC 024 Active predniSONE (DELTASONE) 10 mg tablet Take 1 Tablet (10 mg) by mouth once daily. 14 Tablet 12/28/19 24 1:43 PM CDT 024 Active predniSONE (DELTASONE) 5 mg tablet Take 1 Tablet (5 mg) by mouth once daily. 30 Tablet 2 01/31/20 24 10:57 AM CDT 024 Active LORazepam (ATIVAN) 1 mg tablet Take 1 Tablet (1 mg) by mouth 2 times daily if needed. 60 Tablet 01/10/20 24 12:51 PM CDT 024 Active busPIRone (BUSPAR) 30 mg tablet Take 1 Tablet (30 mg) by mouth two times daily. 180 Tablet 3 02/14/20 24 11:54 AM CDT Active DULoxetine (CYMBALTA) 60 mg Delayed-releas e capsule Take 1 Capsule (60 mg) by mouth two times daily. 180 Capsule 3 01/31/20 24 10:57 AM CDT Active armodafiniL (NUVIGIL) 150 mg tab tablet Take 1 Tablet (150 mg) by mouth once daily as needed, 30 Tablet 1 Active albuterol HFA (PRO-AIR; VENTOLIN; PROVENTIL) 90 mcg/actuation inhaler Inhale 2 Puffs by mouth every 4 hours if needed for shortness of breath or wheezing 18 g 8 12/05/19 1:57 PM SHIRRING MACHINE OPERATOR AUTOMATIC 024 Active azithromycin (ZITHROMAX) 250 mg tablet Take 2 tablets (500 mg) today (day 1), then1 tablet (250 mg) for 4 days (days 2-5). 6 Tablet 1 06/20/20 11:31 AM CDT Active amoxicillin-cl avulanate (AUGMENTIN) 875-125 mg tablet Take 1 Tablet by mouth two times daily with meals. 14 Tablet 08/02/20 3:05 PM CDT 024 Active codeine-guaiFE Nesin 10-100 mg/5 mL liquid Take 10 mL by mouth every 4-6 hours if needed for cough. Max dose is 60 mL per 24 hours. 118 mL 08/02/20 3:05 PM CDT 024 Active predniSONE (DELTASONE) 20 mg tablet Take 1 Tablet (20 mg) by mouth two times daily with meals. 10 Tablet 08/02/20 3:05 PM CDT 024 Active oxyCODONE-acet aminophen (PERCOCET) 5-325 mg per tablet Take 1 Tablet by mouth every 4 to 8 hours if needed for pain. 90 Tablet 11/27/19 2:37 PM SHIRRING MACHINE OPERATOR AUTOMATIC 025 Active methylPREDNISo lone (MEDROL DOSEPAK) 4 mg tablet After 10 days of prednisone 20 mg is complete, then take methylprednisolone pack as instructed on packaging. 21 Tablet 12/05/19 1:57 PM SHIRRING MACHINE OPERATOR AUTOMATIC 025 Active pantoprazole (PROTONIX) 40 mg delayed-releas e tabletIndicati ons:Abdominal pain, epigastric TAKE 1 TABLET TWICE DAILY BEFORE MEALS 180 Tablet 3 Active pantoprazole (PROTONIX) 40 mg delayed-releas e tabletIndicati ons:Abdominal pain, epigastric TAKE 1 TABLET TWICE DAILY BEFORE MEALS 180 Tablet 024 12/08 Discontinued oxyCODONE-acet aminophen (PERCOCET) 5-325 mg per tablet Take 1 Tablet by mouth every 4-8 hours if needed for pain. 90 Tablet 10/29/19 10:51 AM SHIRRING MACHINE OPERATOR AUTOMATIC 025 11/27 Discontinued( Reorder (E-cancel not sent)) levoFLOXacin (LEVAQUIN) 500 mg tablet Take 1 Tablet (500 mg) by mouth once daily for 7 days. 7 Tablet 11/27/19 2:37 PM SHIRRING MACHINE OPERATOR AUTOMATIC 025 12/04 predniSONE (DELTASONE) 20 mg tablet Take 1 Tablet (20 mg) by mouth two times daily with meals. 10 Tablet 11/27/19 2:37 PM SHIRRING MACHINE OPERATOR AUTOMATIC 025 12/04 Discontinued( Reorder (E-cancel not sent)) amoxicillin 500 mg capsule Take 4 Capsules (2,000 mg) by mouth one time 1 hour before appointment.. 12 Capsule 3 11/27/19 2:37 PM SHIRRING MACHINE OPERATOR AUTOMATIC 025 11/28 predniSONE (DELTASONE) 20 mg tablet Take 1 Tablet (20 mg) by mouth two times daily with meals for 10 days. Then start methylprednisolone pack. 20 Tablet 12/05/19 1:57 PM SHIRRING MACHINE OPERATOR AUTOMATIC 025 12/14 Active Problems Problem Noted Date Diagnosed Date [...] episode of shingles in 04/2006. On gabapentin. 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 no evidence of embolic source by TTE, ELADAI, MRI heart and abdomen/kidneys MRA kidneys suggested [...] Encounters Date Type Department Care Team Description 12/07/[address] [phone] Stevenson Mitchell MD Refill Request (Pantoprazole) from Last 3 Months Immunizations Immunization Administration Dates Next Due COVID-19 vaccine ([employer] NTech 30mcg/0.3mL) NAY REID 01/27/2021,01/06/2021 DT (Age [...] Mother Clotting disorder Other Other Other Maternal side: h/o lung ca, myeloma and leukemia Other Sister [...] Housing in the Last Year 1 04/07/2023 Comments No Sex and Gender Information Value Date Recorded Sex Assigned at Not on file Legal Sex Female 5:21 AM SHIRRING MACHINE OPERATOR AUTOMATIC Gender Identity Not on file Sexual Orientation Not on file 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 Not on file Not on file Obstetrics History Para Term AB IAB SAB Ectopic Multiple Livin g Live Births 3 3 3 Date Outcome GA Total Labor Labor/2nd/3rd Weight Sex Type Anes PTL Nelda A1 A5 Name Clin Para Para Para Comments adopted 3 children Last Filed Vital Signs Vital Sign Reading Time Taken Comments Blood Pressure 110/64 09/13/2023 12:55 PM SHIRRING MACHINE OPERATOR AUTOMATIC Pulse 76 09/13/2023 12:55 PM SHIRRING MACHINE OPERATOR AUTOMATIC Temperature 36.7 C (98.1 F) 08/04/2023 10:49 AM CDT Respiratory Rate 16 09/13/2023 12:55 PM SHIRRING MACHINE OPERATOR AUTOMATIC Oxygen Saturation 95% 08/04/2023 12:16 PM CDT Inhaled Oxygen Concentration - - Weight 62.4 kg (137 lb 8 oz) 09/13/2023 12:55 PM SHIRRING MACHINE OPERATOR AUTOMATIC Height 154.9 cm (5' 1) 08/04/2023 10:49 [...] ag e 50-80 10/23/2019 10/23/2018, 01/17/2007, 04/04/2006 Pneumococcal series for age 50+ (3 of 3 - PCV20 or PCV21) 08/11/2020 08/11/2015, 05/12/2013, 04/17/2007, Additional history exists DEXA/DXA scan for age 65+ 2021 Medicare Wellness for age 65+ 2021 Fecal testing non-DNA (FIT,FOBT,iFOBT) for age 45-75 05/06/2021 05/06/2020 Depression screening for age 12+ 12/04/2023 12/03/2022, 12/04/2021, 05/28/2021, Additional history exists BMI (ht and wt on same day) for age 18+ 05/16/2024 05/16/2023, 10/08/2022, 05/21/2022, Additional history exists COVID-19 vaccine series ( season) 2024 01/27/2021, 01/06/2021 Influenza Vaccine (#1) 2024 3, 08/02/2022, 07/17/2021, Additional history exists Tetanus booster 11/07/2025 11/07/2015, 09/13/2006 RSV vaccine for adults or (1 - 1-dose 75+ series) 2031 Tdap Completed 11/07/2015, 11/07/2015 Procedures Procedure Name Priority Date/Time Associated Diagnosis Comments OCCULT BLOOD IFOBT STOOL Routine 05/06/2020 12:00 PM CDT Chronic diarrhea CT CHEST WO Routine 10/23/2018 7:38 AM SHIRRING MACHINE OPERATOR AUTOMATIC Smoking addiction Chronic night sweats Cough XR MAMMO UNI ADDL VIEWS LEFT Routine 07/05/2018 11:03 AM CDT Nodular chondrodermatitis, left LIPID PANEL Timed 06/07/2006 11:08 AM CDT from Last 3 Months or Most Recently Relevant to Health Maintenance Results * OCCULT BLOOD IFOBT STOOL (05/06/2020 12:00 PM CDT) STOOL BLOOD ,IFOBT Negative Negative 05/06/2020 4:45 PM CDT PSYCHIATRIC Stool STOOL SPECIMEN / Unknown Non-Blood / Unknown 05/06/2020 12:00 PM CDT 05/06/2020 4:30 PM CDT us Damien Ortiz MD LABORATORY Final Result [facility] [address] [address] * CT CHEST WO (10/23/2018 7:38 AM SHIRRING MACHINE OPERATOR AUTOMATIC) Anatomical Region Laterality Modality CHEST, THORAX, HEART Computed To mography 10/23/2018 8:51 AM SHIRRING MACHINE OPERATOR AUTOMATIC Narrative 10/23/2018 8:51 AM SHIRRING MACHINE OPERATOR AUTOMATIC INDICATION: 63 year-old female. Smoking addiction. Chronic [...] @ Oct 23 2018 8:51AM (Electronically Signed) Procedure Note Rikki Burnett MD [...] @ Oct 23 2018 8:51AM (Electronically Signed) us Damien Ortiz MD CT Final Result * XR MAMMO UNI ADDL VIEWS LEFT [...] and is consistent with a benign finding. us Damien Ortiz MD MAMMO Final Result * LIPID PANEL (06/07/2006 11:08 AM CDT) CHOLESTEROL,TOTAL 142 110 - 199 mg/dL [facility] TRIGLYCERIDES 102 <150 mg/dL [facility] HDL CHOLESTEROL 54 >40 mg/dL [facility] CHOL/HDL RATIO 2.63 <4.51 [facility] LDL CHOLESTEROL 68 <131 mg/dL [facility] PATIENT STATUS Non-Fasti ng [facility] 06/07/2006 11:0 8 AM CDT 06/07/2006 11:08 AM CDT us Mary Kate Calzada MD CHEMISTRY Final Resu lt [facility] [address] [place] [address] from Last 3 Months or Most Recently Relevant to Health Maintenance Insurance MEDICARE RR PART A HB ONLY MEDICARE RR PART B PB ONLY [facility] [place] [address] MEDICARE RR PART B HB ONLY WC KULDIP MEDRANO Advance Directives Documents on File Type Date Recorded Patient International Affairs Vice President Expl anation Healthcare Directive 06/16/2018 12:00 AM [...] 6:21 AM 04/04/2007 3:04 PM Care Teams Turning Lathe Tender Relationship Specialty Start Date End Date Stevenson Mitchell MD [address] [facility] [place] [address] PCP - General Family Practice 08/22/20
[2024-12-23 09:15] VITALS: BP 160/94; PULSE 105; RESP 22; TEMP 37.1; O2SAT 97; BMI 26.5
--- NOTE | 2024-12-23 09:36 | CRLHL7_ITS ---
For Patients: As a result of the Cures Act, medical imaging exams and procedure reports are released immediately into your electronic medical record. You may view this report before your referring provider. If you have questions, please contact your health care provider. INDICATION: Pain since , left hip TECHNIQUE: X-ray left hip, two views and a single view of the pelvis COMPARISON: None. FINDINGS: The alignment is normal. Negative for acute fracture or dislocation. The femoral heads are well formed and well seated. Overlying soft tissues unremarkable. The right iliac crest is excluded from the image. IMPRESSION: Unremarkable radiographs of the left hip and pelvis. Dictated by Fanta Ibrahim MD @ 12/23/2024 10:19:35 AM Dictated by: Fanta Ibrahim MD @ 12/23/2024 10:19:46 (Electronically Signed)
[2024-12-23] MEDS: KETOROLAC 30 MG/ML inj 60 MG IM (09:50)
--- NOTE | 2024-12-23 09:52 | ED_ITS ---
HPI - General Adult General Chief complaint: Hip Injury/Pain Stated complaint: left hip pain Time Seen by Provider: 12/23/24 09:05 Source: patient Mode of arrival: ambulatory Limitations: no limitations History of Present Illness HPI narrative: 69-year-old female coming in today complaining of a left low back and buttock pain that radiates down the back inside of the left thigh. Pain started 3 days ago and got worse in last 24 hours. Nothing seems to make it better, movement makes it worse. Patient is concerned that she broke her hip. She denies falling or bumping her hip into anything. Patient is on chronic Percocet for chronic pain. She is also on bupropion, buspirone, Celebrex, duloxetine, lorazepam, pregabalin. She denies any skin rashes, or systemic symptoms. No fevers or chills. No vomiting. No saddle anesthesia. No loss of bowel or bladder control. Related Data Home Medications ?Medication ?Instructions ?Recorded ?Confirmed bupropion HCl 300 mg 24 hr tablet, 300 mg PO QDAY 04/25/22 12/04/24 extended release buspirone 30 mg tablet 30 mg PO BID 04/25/22 12/04/24 ascorbic acid (vitamin C) 500 mg 1 g PO DAILY 04/28/22 12/04/24 tablet aspirin 81 mg tablet,delayed 81 mg PO QDAY 04/28/22 12/04/24 release cholecalciferol (vitamin D3) 25 1,000 unit PO DAILY 04/28/22 12/04/24 mcg (1,000 unit) tablet acetaminophen 500 mg tablet 1,000 mg PO Q6H PRN 05/25/22 12/04/24 pantoprazole 40 mg tablet,delayed 40 mg PO DAILY 09/03/22 12/04/24 release duloxetine 60 mg capsule,delayed 120 mg PO DAILY 08/10/23 12/04/24 release armodafinil 150 mg tablet 150 mg PO QAM 06/07/24 12/04/24 Previous Rx's ?Medication ?Instructions ?Recorded celecoxib 200 mg capsule (Celebrex) 200 mg PO BID #60 caps 08/10/22 lorazepam 0.5 mg tablet 0.5 mg PO Q6H PRN #15 tabs 08/12/23 albuterol sulfate 90 mcg/actuation 2 inh inhalation Q4H PRN shortness 03/21/24 aerosol inhaler of breath or wheezing #8.5 grams pregabalin 50 mg capsule 50 mg PO HS #90 caps 03/23/24 famotidine 20 mg tablet 20 mg PO BID #180 tabs 11/05/24 losartan 50 mg tablet 50 mg PO DAILY #90 tabs 11/05/24 oxycodone-acetaminophen 5 mg-325 1 tab PO Q4-8H PRN pain #90 tabs 11/27/24 mg tablet (Percocet) methylprednisolone 4 mg tablets in See Rx Instructions PO PER PKG DIR 12/04/24 a dose pack (Medrol (Leodan)) #21 ea prednisone 20 mg tablet 20 mg PO BID #20 tabs 12/04/24 methylprednisolone 4 mg tablets in See Rx Instructions PO .COMPLEX 12/23/24 a dose pack (Medrol (Leodan)) #21 ea Allergies Allergy/AdvReac Type Severity Reaction Status Date / Time aripiprazole (From Abilify) Allergy Intermediate Shortness Verified 08/02/24 13:51 of breath, itchy face Review of Systems Status of ROS: Reports: 10 or more systems reviewed and unremarkable except as noted in History and below [facility] Medical History Pneumonia ?J18.9 - Pneumonia, unspecified organism (ICD-10) Head, face & neck injury ?S19.9XXA - Unspecified injury of neck, initial encounter (ICD-10) ?S09.90XA - Unspecified injury of head, initial encounter (ICD-10) ?S09.93XA - Unspecified injury of face, initial encounter (ICD-10) Neck pain ?M54.2 - Cervicalgia (ICD-10) GERD (gastroesophageal reflux disease) ?K21.9 - Gastro-esophageal reflux disease without esophagitis (ICD-10) Acute hypokalemia ?E87.6 - Hypokalemia (ICD-10) Opioid dependence on maintenance agonist therapy, no symptoms ?F11.20 - Opioid dependence, uncomplicated (ICD-10) History of GI bleed ?Z87.19 - Personal history of other diseases of the digestive system (ICD-10) Renal infarct ?N28.0 - Ischemia and infarction of kidney (ICD-10) Osteoarthritis of right knee ?M17.11 - Unilateral primary osteoarthritis, right knee (ICD-10) Chronic radicular pain of lower back ?M54.16 - Radiculopathy, lumbar region (ICD-10) ?G89.29 - Other chronic pain (ICD-10) Major depressive disorder ?F32.9 - Major depressive disorder, single episode, unspecified (ICD-10) PUD (peptic ulcer disease) ?K27.9 - Peptic ulcer, site unspecified, unspecified as acute or chronic, without hemorrhage or perforation (ICD-10) Migraine ?G43.909 - Migraine, unspecified, not intractable, without status migrainosus (ICD-10) Unspecified asthma ?J45.909 - Unspecified asthma, uncomplicated (ICD-10) Tobacco use ?Z72.0 - Tobacco use (ICD-10) Sepsis ?A41.9 - Sepsis, unspecified organism (ICD-10) Arthritis of right shoulder region ?M19.011 - Primary osteoarthritis, right shoulder (ICD-10) Surgical History Status post medial meniscus repair (05/26/22) ?Z98.890 - Other specified postprocedural states (ICD-10) S/P right knee arthroscopy (10/18/22) ?Z98.890 - Other specified postprocedural states (ICD-10) History of endometrial ablation ?Z98.890 - Other specified postprocedural states (ICD-10) Hx of oophorectomy Hx of LASIK ?Z98.890 - Other specified postprocedural states (ICD-10) Hx of dilation and curettage ?Z98.890 - Other specified postprocedural states (ICD-10) Hx of vaginal hysterectomy ?Z90.710 - Acquired absence of both cervix and uterus (ICD-10) Hx of tubal ligation ?Z98.51 - Tubal ligation status (ICD-10) History of shoulder surgery ?Z98.890 - Other specified postprocedural states (ICD-10) 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 What is your current living situation?: I presently have a place to live Problems where you live: no known problems Problems where you live details: none In the past 12 months, utilities in danger of being shut off: no In past 12 months, lack of transportation kept you from medical appts, meetings, work, or getting things needed for daily living: no In the past 12 mos, have been you worried that your food would run out before you had money to buy more?: never true In the past 12 mos, the food you bought just didn't last and you didn't have money to buy more?: never true Smoking Status: Current every day smoker What tobacco products do you use: cigarettes Smoking packs per day: 1 Smoking cigarettes per day: 20.0 Smoking quit date/years: >15 years ago Do you use any of these nicotine containing products: None Second hand tobacco smoke exposure: No How often do you have a drink containing alcohol: monthly or less How many standard drinks containing alcohol do you have on a typical day: 1 or 2 How often do you have six or more drinks on one occasion: Never AUDIT-C Alcohol total score: 1 Non-prescribed substance use: denies use, opiods/painkillers and over the counter (eg: immodium) Caffeine: Yes (COFFEE AND DIET COKE) How often does anyone, including family, friends and others, physically hurt you : never How often does anyone, including family, friends and others, insult or talk down to you: never How often does anyone, including family, friends and others, threaten you with harm: never How often does anyone, including family, friends and others, scream or curse at you: never Are you using contraception or practicing any form of control: No (HYSTERECTOMY) service: No Exam Narrative: Exam Narrative: Well-nourished well-developed patient. Alert and oriented. Answers questions appropriately. Patient is very distraught today. Thoughts are goal oriented. HEENT: Normocephalic atraumatic. Pupils are equally round reactive to light. Extraocular muscles are intact. Conjunctivae are moist without any icterus noted. Moist mucous membranes. Abdomen is soft and nontender with normal bowel sounds. No suprapubic tenderness. Extremities: Bilateral lower extremities are without edema. Normal DP and PT pulses. Patient screams in pain with light touching of the skin of the lateral and posterior thigh on the left. However if she is distracted, firm pressure can be applied to the same area without a similar reaction. There is no swelling or skin changes of the thigh or lower back. She has tenderness in the buttock region. There is no tenderness over the lumbar spine. There are no step-offs. There is no tenderness with manipulation of the pelvis. She has full range of motion of the hip however this causes her discomfort especially with external rotation. Straight leg raise test is positive on the left. Skin: Well perfused without any obvious rashes. Const: Vital Signs, click to edit/add: Vital Signs - 24 hr 12/23/24 09:15 Temperature 98.7 F Pulse Rate [Pulse Oximeter] 105 H Respiratory Rate 22 Blood Pressure [Ri t Upper Arm] 160/94 H Pulse Oximetry 97 Oxygen Delivery Me thod Room Air Course Course ED Course: X-ray of the left hip was done, read by me, does not show any acute abnormalities. Did give her a dose of IM Toradol while she was here. Vital Signs Vital signs: Initial Vital Signs Temperature 98.7 F 12/23/24 09:15 Temperature Source Temporal Artery Scan 12/23/24 09:15 Pulse Rate 105 H 12/23/24 09:15 Respiratory Rate 22 12/23/24 09:15 Blood Pressure 160/94 H 12/23/24 09:15 Blood Pressure Mean 116 H 12/23/24 09:15 Blood Pressure Position Supine 12/23/24 09:15 Pulse Oximetry 97 12/23/24 09:15 Oxygen Delivery Method Room Air 12/23/24 09:15 Vital Signs Temperature 98.7 F 12/23/24 09:15 Pulse Rate 105 H 12/23/24 09:15 Respiratory Rate 22 12/23/24 09:15 Blood Pressure 160/94 H 12/23/24 09:15 Pulse Oximetry 97 12/23/24 09:15 Oxygen Delivery Method Room Air 12/23/24 09:15 Temperature 98.7 F 12/23/24 09:15 Pulse Rate 105 H 12/23/24 09:15 Respiratory Rate 22 12/23/24 09:15 Blood Pressure 160/94 H 12/23/24 09:15 Pulse Oximetry 97 12/23/24 09:15 Oxygen Delivery Method Room Air 12/23/24 09:15 Medications Administered Medications: Discontinued Medications Generic Name Dose Route Start Last Admin Trade Name Kimo PRN Reason Stop Dose Admin Ketorolac Tromethamine 60 mg 12/23/24 09:36 12/23/24 09:50 Ketorolac 30 Mg/Ml Inj IM 12/23/24 09:37 60 mg ONCE ONE Administration Medical Decision Making MDM Narrative Medical decision making narrative: 69-year-old female with what appears to be lumbar radiculopathy. Other differential diagnoses includes hip arthritis. At this point patient did state that she just finished a prednisone taper for COPD and pneumonia. I think it would be a good idea 1st to put her back on a Medrol Dosepak for lumbar radiculopathy to see if this helps. I do not think that increasing her narcotics would be beneficial at this time. I would like for to follow up with her primary care provider this coming week to see how she is doing. Certainly return if he develops any systemic symptoms. Patient is in agreement and had no other questions. Imaging Data X-ray hip: Attestation: I have reviewed the pertinent imaging results. Radiologist's impression: X-ray left hip, two views and a single view of the pelvis COMPARISON: None. FINDINGS: The alignment is normal. Negative for acute fracture or dislocation. The femoral heads are well formed and well seated. Overlying soft tissues unremarkable. The right iliac crest is excluded from the image. IMPRESSION: Unremarkable radiographs of the left hip and pelvis. Discharge Plan Discharge Clinical Impression: Acute left lumbar radiculopathy Patient Disposition: Home, Self-Care Condition: Stable Instructions: Lumbar Radiculopathy (ED) Additional Instructions: Take all steroid as prescribed. You will need to follow-up with your primary care provider this coming week. If you develop fever, vomiting, loss of bowel or bladder control you should return to the emergency department. Prescriptions: New methylprednisolone [Medrol (Leodan)] 4 mg tablets,dose pack See Rx Instructions .ROUTE .COMPLEX Qty: 21 0RF Rx Instructions: orally per package directions No Action prednisone 20 mg tablet 20 mg PO BID Qty: 20 0RF methylprednisolone [Medrol (Leodan)] 4 mg tablets,dose pack See Rx Instructions PO PER PKG DIR Qty: 21 0RF Rx Instructions: PO PER PKG DIR for 6 days ascorbic acid (vitamin C) 500 mg tablet 1 g PO DAILY cholecalciferol (vitamin D3) 25 mcg (1,000 unit) tablet 1,000 unit PO DAILY aspirin 81 mg tablet,delayed release (DR/EC) 81 mg PO QDAY celecoxib [Celebrex] 200 mg capsule 200 mg PO BID Qty: 60 3RF pantoprazole 40 mg tablet,delayed release (DR/EC) 40 mg PO DAILY armodafinil 150 mg tablet 150 mg PO QAM buspirone 30 mg tablet 30 mg PO BID bupropion HCl 300 mg tablet extended release 24 hr 300 mg PO QDAY acetaminophen 500 mg tablet 1,000 mg PO Q6H PRN duloxetine 60 mg capsule,delayed release(DR/EC) 120 mg PO DAILY lorazepam 0.5 mg Tablet 0.5 mg PO Q6H PRNQty: 15 0RF albuterol sulfate 90 mcg/actuation HFA aerosol inhaler 2 inh INHALATION Q4H PRN (Reason: shortness of breath or wheezing) Qty: 8.5 8RF pregabalin 50 mg capsule 50 mg PO HS Qty: 90 4RF losartan 50 mg tablet 50 mg PO DAILY Qty: 90 1RF famotidine 20 mg tablet 20 mg PO BID Qty: 180 1RF oxycodone-acetaminophen [Percocet] 5-325 mg tablet 1 tab PO Q4-8H PRN (Reason: pain) Qty: 90 0RF Follow Up/Referrals: Ad Griffin MD [Primary Care Provider] - Stand Alone Forms: [employer] Info Instructions
--- OUTSIDE RECORDS SUMMARY | 2024-12-23 10:04 | XMS_ITS | Clinical Summary ---
Author Organization [employer] [facility] [employer] [facility] Address [address] [place] [id number] Care Team Providers Care Public Relations Sales Marketing Name Role Phone Stevenson Mitchell MD Primary [...] hours. 100 Tablet 08/25/20 21 12:03 PM ASSISTANT PURCHASING MANAGER 021 Active albuterol HFA (PRO-AIR; VENTOLIN; PROVENTIL) 90 mcg/actuation inhalerIndicat ions:COPD exacerbation (HC) Inhale 2 Puffs by mouth 4 times daily. 18 g 2 08/11/20 23 9:55 AM ASSISTANT PURCHASING MANAGER 022 Active buPROPion (Wellbutrin XL) 300 mg Extended-Relea se tablet Take 1 Tablet (300 mg) by mouth once daily. 90 Tablet 3 023 Active albuterol-ipra tropium (DUONEB) (2.5-0.5 mg) in 3 mL NEBULIZATION solution Inhale 3 mL via a nebulizer every 6-8 hours if needed. 30 mL 08/12/20 23 11:02 AM ASSISTANT PURCHASING MANAGER 023 Active LORazepam (ATIVAN) 0.5 mg tab Take 1 Tablet (0.5 mg) by mouth every 6 hours if needed. 15 Tablet 08/12/20 23 11:02 AM ASSISTANT PURCHASING MANAGER 023 Active nebulizer and compressor As directed 1 Each 08/12/20 23 11:02 AM ASSISTANT PURCHASING MANAGER 023 Active losartan (COZAAR) 50 mg tabletIndicati ons:Essential hypertension TAKE 1 TABLET ONE TIME DAILY 90 Tablet 023 Active famotidine (PEPCID) 20 mg tabletIndicati ons:Chronic GERD TAKE 1 TABLET TWICE DAILY 180 Tablet 2 023 Active codeine-guaiFE Nesin (ROBITUSSIN AC) 10-100 mg/5 mL liquid Take 10 mL by mouth every 4 hours if needed for cough. 118 mL 09/27/20 23 2:59 PM ASSISTANT PURCHASING MANAGER 023 Active pregabalin (LYRICA) 50 mg capsuleIndicat ions:Chest pain, pleuritic TAKE 1 CAPSULE AT BEDTIME 30 Capsule 024 Active azithromycin (Zithromax Z-Leodan) 250 mg tablet Take two tablets (500 mg) by mouth today, then one tablet (250 mg) daily for days 2-5. 6 Tablet 11/29/19 24 2:03 PM ASSISTANT PURCHASING MANAGER 024 Active predniSONE (DELTASONE) 10 mg tablet [...] wheezing 18 g 8 12/05/19 1:57 PM ASSISTANT PURCHASING MANAGER 024 Active azithromycin (ZITHROMAX) 250 mg tablet [...] for pain. 90 Tablet 11/27/19 2:37 PM ASSISTANT PURCHASING MANAGER 025 Active methylPREDNISo lone (MEDROL DOSEPAK) 4 mg tablet After 10 days of prednisone 20 mg is complete, then take methylprednisolone pack as instructed on packaging. 21 Tablet 12/05/19 1:57 PM ASSISTANT PURCHASING MANAGER 025 Active pantoprazole (PROTONIX) 40 mg delayed-releas [...] for pain. 90 Tablet 10/29/19 10:51 AM ASSISTANT PURCHASING MANAGER 025 11/27 Discontinued( Reorder (E-cancel not sent)) levoFLOXacin (LEVAQUIN) 500 mg tablet Take 1 Tablet (500 mg) by mouth once daily for 7 days. 7 Tablet 11/27/19 2:37 PM ASSISTANT PURCHASING MANAGER 025 12/04 predniSONE (DELTASONE) 20 mg tablet Take 1 Tablet (20 mg) by mouth two times daily with meals. 10 Tablet 11/27/19 2:37 PM ASSISTANT PURCHASING MANAGER 025 12/04 Discontinued( Reorder (E-cancel not sent)) amoxicillin 500 mg capsule Take 4 Capsules (2,000 mg) by mouth one time 1 hour before appointment.. 12 Capsule 3 11/27/19 2:37 PM ASSISTANT PURCHASING MANAGER 025 11/28 predniSONE (DELTASONE) 20 mg tablet Take 1 Tablet (20 mg) by mouth two times daily with meals for 10 days. Then start methylprednisolone pack. 20 Tablet 12/05/19 1:57 PM ASSISTANT PURCHASING MANAGER 025 12/14 Active Problems Problem Noted Date [...] episode of shingles in 04/2006. On gabapentin. 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 file Not on file Not [...] Comments Blood Pressure 110/64 09/13/2023 12:55 PM ASSISTANT PURCHASING MANAGER Pulse 76 09/13/2023 12:55 PM ASSISTANT PURCHASING MANAGER Temperature 36.7 C (98.1 F) 08/04/2023 10:49 AM CDT Respiratory Rate 16 09/13/2023 12:55 PM ASSISTANT PURCHASING MANAGER Oxygen Saturation 95% 08/04/2023 12:16 PM CDT Inhaled Oxygen Concentration - - Weight 62.4 kg (137 lb 8 oz) 09/13/2023 12:55 PM ASSISTANT PURCHASING MANAGER Height 154.9 cm (5' 1) 08/04/2023 10:49 [...] CT CHEST WO Routine 10/23/2018 7:38 AM ASSISTANT PURCHASING MANAGER Smoking addiction Chronic night sweats Cough XR MAMMO UNI ADDL VIEWS LEFT Routine 07/05/2018 11:03 AM CDT Nodular chondrodermatitis, left LIPID PANEL Timed 06/07/2006 11:08 AM CDT from Last 3 Months or Most Recently Relevant to Health Maintenance Results * OCCULT BLOOD IFOBT STOOL (05/06/2020 12:00 PM CDT) STOOL BLOOD ,IFOBT Negative Negative 05/06/2020 4:45 PM CDT [facility] Stool STOOL SPECIMEN / Unknown Non-Blood / Unknown 05/06/2020 12:00 PM CDT 05/06/2020 4:30 PM CDT us Damien Ortiz MD LABORATORY Final Result [facility] [address] [address] * CT CHEST WO (10/23/2018 7:38 AM ASSISTANT PURCHASING MANAGER) Anatomical Region Laterality Modality CHEST, THORAX, HEART Computed To mography 10/23/2018 8:51 AM ASSISTANT PURCHASING MANAGER Narrative 10/23/2018 8:51 AM ASSISTANT PURCHASING MANAGER INDICATION: 63 year-old female. Smoking addiction. Chronic [...] CDT) CHOLESTEROL,TOTAL 142 110 - 199 mg/dL [facility] TRIGLYCERIDES 102 <150 mg/dL [facility] HDL CHOLESTEROL 54 >40 mg/dL [facility] CHOL/HDL RATIO 2.63 <4.51 [facility] LDL CHOLESTEROL 68 <131 mg/dL [facility] PATIENT STATUS Non-Fasti ng [facility] 06/07/2006 11:0 8 AM CDT 06/07/2006 11:08 AM CDT us Mary Kate Calzada MD CHEMISTRY Final Resu lt [facility] [address] [place] [id number] from Last 3 Months or Most Recently Relevant to Health Maintenance Insurance MEDICARE RR PART A HB ONLY MEDICARE RR PART B PB ONLY [facility] [place] [address] MEDICARE RR PART B HB ONLY [facility] Advance Directives Documents on File Type Date Recorded 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
== END 2024-12-23 10:50 | disposition home or self-care (01) ==
LOC: ED 10:03
PROVIDERS: Emergency Provider Family Medicine; PCP Internal Medicine
DX: M54.16 Radiculopathy, lumbar region (principal)
CPT/HCPCS: 73502; 96372; 99283; 99284; J1885

== ENCOUNTER 2025-03-23 12:14 | Emergency (ER) | payer MEDICARE, OTHER, SELFPAY ==
--- OUTSIDE RECORDS SUMMARY | 2025-03-23 12:15 | XMS_ITS | Clinical Summary ---
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 0 016 Active cholecalciferol (VITAMIN D) 1,000 unit tablet [...] 4000mg per 24 hours. 100 Tablet 1 12:03 PM JERKER 021 Active albuterol HFA (PRO-AIR; VENTOLIN; PROVENTIL) 90 mcg/actuation inhalerIndicati ons:COPD exacerbation (HC) Inhale 2 Puffs by mouth 4 times daily. 18 g 2 3 9:55 AM JERKER 022 Active buPROPion (Wellbutrin XL) 300 mg Extended-Releas e tablet Take 1 Tablet (300 mg) by mouth once daily. 90 Tablet 3 023 Active albuterol-iprat ropium (DUONEB) (2.5-0.5 mg) in 3 mL NEBULIZATION solution Inhale 3 mL via a nebulizer every 6-8 hours if needed. 30 mL 3 11:02 AM JERKER 023 Active LORazepam (ATIVAN) 0.5 mg tab Take 1 Tablet (0.5 mg) by mouth every 6 hours if needed. 15 Tablet 3 11:02 AM JERKER 023 Active nebulizer and compressor As directed 1 Each 3 11:02 AM JERKER 023 Active losartan (COZAAR) 50 mg tabletIndicatio ns:Essential hypertension TAKE 1 TABLET ONE TIME DAILY 90 Tablet 023 Active famotidine (PEPCID) 20 mg tabletIndicatio ns:Chronic GERD TAKE 1 TABLET TWICE DAILY 180 Tablet 2 023 Active codeine-guaiFEN esin (ROBITUSSIN AC) 10-100 mg/5 mL liquid Take 10 mL by mouth every 4 hours if needed for cough. 118 mL 3 2:59 PM JERKER 023 Active pregabalin (LYRICA) 50 mg capsuleIndicati ons:Chest pain, pleuritic TAKE 1 CAPSULE AT BEDTIME 30 Capsule 024 Active azithromycin (Zithromax Z-Leodan) 250 mg tablet Take two tablets (500 mg) by mouth today, then one tablet (250 mg) daily for days 2-5. 6 Tablet 4 2:03 PM JERKER 024 Active predniSONE (DELTASONE) 10 mg tablet Take 1 Tablet (10 mg) by mouth once daily. 14 Tablet 4 1:43 PM CDT 024 Active predniSONE (DELTASONE) 5 mg tablet Take 1 Tablet (5 mg) by mouth once daily. 30 Tablet 2 4 10:57 AM CDT 024 Active LORazepam (ATIVAN) 1 mg tablet Take 1 Tablet (1 mg) by mouth 2 times daily if needed. 60 Tablet 4 12:51 PM CDT 024 Active busPIRone (BUSPAR) 30 mg tablet Take 1 Tablet (30 mg) by mouth two times daily. 180 Tablet 3 4 11:54 AM CDT Active DULoxetine (CYMBALTA) 60 mg Delayed-release capsule Take 1 Capsule (60 mg) by mouth two times daily. 180 Capsule 3 4 10:57 AM CDT Active armodafiniL (NUVIGIL) 150 mg tab tablet Take 1 Tablet (150 mg) by mouth once daily as needed, 30 Tablet 1 Active albuterol HFA 90 mcg/actuation inhaler Inhale 2 Puffs by mouth every 4 hours if needed for shortness of breath or wheezing 18 g 8 5 1:46 PM CDT Active azithromycin (ZITHROMAX) 250 mg tablet Take 2 tablets (500 mg) today (day 1), then1 tablet (250 mg) for 4 days (days 2-5). 6 Tablet 1 4 11:31 AM CDT Active amoxicillin-cla vulanate (AUGMENTIN) 875-125 mg tablet Take 1 Tablet by mouth two times daily with meals. 14 Tablet 4 3:05 PM CDT Active codeine-guaiFEN esin 10-100 mg/5 mL liquid Take 10 mL by mouth every 4-6 hours if needed for cough. Max dose is 60 mL per 24 hours. 118 mL 4 3:05 PM CDT Active predniSONE (DELTASONE) 20 mg tablet Take 1 Tablet (20 mg) by mouth two times daily with meals. 10 Tablet 4 3:05 PM CDT Active methylPREDNISol one (MEDROL DOSEPAK) 4 mg tablet After 10 days of prednisone 20 mg is complete, then take methylprednisolone pack as instructed on packaging. 21 Tablet 5 1:57 PM JERKER Active pantoprazole (PROTONIX) 40 mg delayed-release tabletIndicatio ns:Abdominal pain, epigastric TAKE 1 TABLET TWICE DAILY BEFORE MEALS 180 Tablet 3 Active armodafinil 150 mg tablet Take 1 Tablet (150 mg) by mouth once daily if needed. 90 Tablet 1 Active DULoxetine 60 mg Delayed-release capsule Take 1 Capsule (60 mg) by mouth two times daily. 180 Capsule 3 5 10:05 AM CDT 025 Active LORazepam 1 mg tablet Take 1 Tablet (1 mg) by mouth two times daily as needed. 60 Tablet 025 Active pramipexole 0.5 mg tablet Take 1 Tablet (0.5 mg) by mouth at bedtime. 30 Tablet 6 5 10:05 AM CDT 025 Active oxyCODONE-aceta minophen 5-325 mg per tablet Take 1 Tablet by mouth every 4-8 hours if needed for pain. 90 Tablet 5 1:46 PM CDT 025 Active oxyCODONE-aceta minophen 5-325 mg per tablet Take 1 Tablet by mouth every 4-8 hours if needed for pain. 90 Tablet 5 11:17 AM CDT 025 2024 Disconti nued(Reo rder (E-cance l not sent)) Active Problems Problem Noted Date [...] episode of shingles in 04/2006. On gabapentin. [facility] (current) use of anticoagulants 2006 Other premature [...] 02/17/2012 Nausea with vomiting 03/30/2006 006 Immunizations Immunization Administration Dates Next Due COVID-19 vaccine (Vision Critical 30mcg/0.3mL) PF, MDV 01/27/2021,01/06/2021 DT (Age < 7 years) 09/13/2006,03/17/2002 Hepatitis A (Adult) 05/26/2004,11/26/2003 Hepatitis B (Adult) 08/03/1993,03/03/1993,1992 Hepatitis B, Unspecified 01/12/1995,03/0 06/1995,08/03/1993,1992,01/31/1993 Influenza Virus, Unspecified 07/07/2012, 08/17/2011,09/17/2010,2008,08/03/2008 Influenza, IIV3 [...] on file Legal Sex Female 5:21 AM JERKER Gender Identity Not on file Sexual Orientation Not on file 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 Not on file Not [...] Comments Blood Pressure 110/64 09/13/2023 12:55 PM JERKER Pulse 76 09/13/2023 12:55 PM JERKER Temperature 36.7 C (98.1 F) 08/04/2023 10:49 AM CDT Respiratory Rate 16 09/13/2023 12:55 PM JERKER Oxygen Saturation 95% 08/04/2023 12:16 PM CDT Inhaled Oxygen Concentration - - Weight 62.4 kg (137 lb 8 oz) 09/13/2023 12:55 PM JERKER Height 154.9 cm (5' 1) 08/04/2023 10:49 [...] 05/21/2022, Additional history exists COVID-19 vaccine series (3 - season) 2024 01/27/2021, 01/06/2021 Influenza Vaccine (Season Ended) 2025 07/22/2023, 08/02/2022, 07/17/2021, Additional history exists Tetanus booster 11/07/2025 11/07/2015, 09/13/2006 RSV vaccine for adults or (1 - 1-dose 75+ series) 2031 Hepatitis B series for 19+ Completed 01/12, 12/09/1994, 08/03/1993, Additional history exists Tdap Completed 11/07/2015, 11/07/2015 Procedures Procedure Name Priority Date/Time Associated Diagnosis Comments OCCULT BLOOD IFOBT STOOL Routine 05/06/2020 12:[address] PM CD[address] Chronic diarrhea CT CHEST WO Routine 10/23/2018 7:38 AM JERKER Smoking addiction Chronic night sweats Cough XR MAMMO UNI ADDL VIEWS LEFT Routine 07/05/2018 11:03 AM CDT Nodular chondrodermatitis, left LIPID PANEL Timed 06/07/2006 11:08 AM CDT from Last 3 Months or Most Recently Relevant to Health Maintenance Results * OCCULT BLOOD IFOBT STOOL (05/06/2020 12:00 PM CDT) STOOL BLOOD ,IFOBT Negative Negative 05/06/2020 4:45 PM CDT [facility] Stool STOOL SPECIMEN / Unknown Non-Blood / Unknown 05/06/2020 12:00 PM CDT 05/06/2020 4:30 PM CDT Damien Ortiz MD LABORATORY Final Result [facility] [address] [place] [address] * CT CHEST WO (10/23/2018 7:38 AM JERKER) Anatomical Region Laterality Modality CHEST, THORAX, HEART Computed To mography 10/23/2018 8:51 AM JERKER Narrative 10/23/2018 8:51 AM JERKER INDICATION: 63 year-old female. Smoking addiction. Chronic [...] 8:51AM (Electronically Signed) Damien Ortiz MD CT Final Result * [...] CDT) CHOLESTEROL,TOTAL 142 110 - 199 mg/dL [facility] TRIGLYCERIDES 102 <150 mg/dL [facility] HDL CHOLESTEROL 54 >40 mg/dL [facility] CHOL/HDL RATIO 2.63 <4.51 [facility] LDL CHOLESTEROL 68 <131 mg/dL [facility] PATIENT STATUS Non-Fasti ng [facility] 06/07/2006 11:0 8 AM CDT 06/07/2006 11:08 AM CDT Mray Kate Calzada MD CHEMISTRY Final Resu lt [facility] [address] [place] [phone] from Last 3 Months or Most Recently Relevant to Health Maintenance Insurance [facility] MEDICARE RR PART A HB ONLY MEDICARE RR PART B PB ONLY [facility] MEDICARE RR PART B HB ONLY [facility] Advance Directives Documents on File Type Date Recorded Patient Supervisor Network Control Operators Expl anation Healthcare Directive 06/16/2018 12:00 AM [...] 6:21 AM 04/04/2007 3:04 PM Care Teams Well Logging Captain Mud Analysis Relationship Specialty Start Date End Date Stevenson Mitchell MD [address] [place] [address] PCP - General Family Practice 08/22/20
[2025-03-23 12:49] VITALS: BP 119/74; PULSE 122; RESP 36; TEMP 37.1; O2SAT 91; BMI 24.6
--- NOTE | 2025-03-23 13:16 | CRLHL7_ITS ---
For Patients: As a result of the Cures Act, medical imaging exams and procedure reports are released immediately into your electronic medical record. You may view this report before your referring provider. If you have questions, please contact your health care provider. INDICATION: Cough. TECHNIQUE: Chest 2 views. COMPARISON: 11/27/2024. FINDINGS: Cardiovascular and mediastinum: Heart size is normal. Unremarkable mediastinum. Lungs and pleural spaces: Lungs are clear except for a stable right lung granuloma. No sign of infiltrate or mass. No sign of pleural effusion. No pneumothorax. Bones and soft tissues: No significant findings. IMPRESSION: Negative chest. No sign of pneumonia or CHF. Dictated by Kolton Spaulding MD @ 03/23/2025 2:01:36 PM (Electronically Signed)
--- NOTE | 2025-03-23 13:19 | ED.GENADULT ---
HPI - General Adult General Date Seen: 03/23/25 Chief complaint: Shortness of Breath/Dyspnea Stated complaint: cough Time Seen by Provider: 03/23/25 12:46 History of Present Illness HPI narrative: Patient is a 69-year-old woman with underlying COPD who notes several days of cough productive of thick white sputum which is unusual for her, generalized body aches, rib pain, low-grade fevers. Is concerned about possible pneumonia. She does note that she continues to smoke. She has inhalers which she has been using. 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 She is not anticoagulated. She does not have pleuritic chest pain. She denies cardiac history such as coronary artery disease or congestive heart failure. Related Data Home Medications ?Medication ?Instructions ?Recorded ?Confirmed bupropion HCl 300 mg 24 hr tablet, 300 mg PO QDAY 04/25/22 12/04/24 extended release buspirone 30 mg tablet 30 mg PO BID 04/25/22 12/04/24 ascorbic acid (vitamin C) 500 mg 1 g PO DAILY 04/28/22 12/04/24 tablet aspirin 81 mg tablet,delayed 81 mg PO QDAY 04/28/22 12/04/24 release cholecalciferol (vitamin D3) 25 1,000 unit PO DAILY 04/28/22 12/04/24 mcg (1,000 unit) tablet acetaminophen 500 mg tablet 1,000 mg PO Q6H PRN 05/25/22 12/04/24 pantoprazole 40 mg tablet,delayed 40 mg PO DAILY 09/03/22 12/04/24 release duloxetine 60 mg capsule,delayed 120 mg PO DAILY 08/10/23 12/04/24 release armodafinil 150 mg tablet 150 mg PO QAM 06/07/24 12/04/24 Previous Rx's ?Medication ?Instructions ?Recorded celecoxib 200 mg capsule (Celebrex) 200 mg PO BID #60 caps 08/10/22 lorazepam 0.5 mg tablet 0.5 mg PO Q6H PRN #15 tabs 08/12/23 albuterol sulfate 90 mcg/actuation 2 inh inhalation Q4H PRN shortness 03/21/24 aerosol inhaler of breath or wheezing #8.5 grams famotidine 20 mg tablet 20 mg PO BID #180 tabs 11/05/24 losartan 50 mg tablet 50 mg PO DAILY #90 tabs 11/05/24 oxycodone-acetaminophen 5 mg-325 1 tab PO Q4-8H PRN pain #90 tabs 02/26/25 mg tablet (Percocet) Allergies Allergy/AdvReac Type Severity Reaction Status Date / Time aripiprazole (From Abilify) Allergy Intermediate Shortness Verified 08/02/24 13:51 of breath, itchy face Review of Systems Status of ROS: Reports: 10 or more systems reviewed and unremarkable except as noted in History and below [facility] Medical History Pneumonia ?J18.9 - Pneumonia, unspecified organism (ICD-10) Head, face & neck injury ?S19.9XXA - Unspecified injury of neck, initial encounter (ICD-10) ?S09.90XA - Unspecified injury of head, initial encounter (ICD-10) ?S09.93XA - Unspecified injury of face, initial encounter (ICD-10) Neck pain ?M54.2 - Cervicalgia (ICD-10) GERD (gastroesophageal reflux disease) ?K21.9 - Gastro-esophageal reflux disease without esophagitis (ICD-10) Acute hypokalemia ?E87.6 - Hypokalemia (ICD-10) Opioid dependence on maintenance agonist therapy, no symptoms ?F11.20 - Opioid dependence, uncomplicated (ICD-10) History of GI bleed ?Z87.19 - Personal history of other diseases of the digestive system (ICD-10) Renal infarct ?N28.0 - Ischemia and infarction of kidney (ICD-10) Osteoarthritis of right knee ?M17.11 - Unilateral primary osteoarthritis, right knee (ICD-10) Chronic radicular pain of lower back ?M54.16 - Radiculopathy, lumbar region (ICD-10) ?G89.29 - Other chronic pain (ICD-10) Major depressive disorder ?F32.9 - Major depressive disorder, single episode, unspecified (ICD-10) PUD (peptic ulcer disease) ?K27.9 - Peptic ulcer, site unspecified, unspecified as acute or chronic, without hemorrhage or perforation (ICD-10) Migraine ?G43.909 - Migraine, unspecified, not intractable, without status migrainosus (ICD-10) Unspecified asthma ?J45.909 - Unspecified asthma, uncomplicated (ICD-10) Tobacco use ?Z72.0 - Tobacco use (ICD-10) Sepsis ?A41.9 - Sepsis, unspecified organism (ICD-10) Arthritis of right shoulder region ?M19.011 - Primary osteoarthritis, right shoulder (ICD-10) Surgical History Status post medial meniscus repair (05/26/22) ?Z98.890 - Other specified postprocedural states (ICD-10) S/P right knee arthroscopy (10/18/22) ?Z98.890 - Other specified postprocedural states (ICD-10) History of endometrial ablation ?Z98.890 - Other specified postprocedural states (ICD-10) Hx of oophorectomy Hx of LASIK ?Z98.890 - Other specified postprocedural states (ICD-10) Hx of dilation and curettage ?Z98.890 - Other specified postprocedural states (ICD-10) Hx of vaginal hysterectomy ?Z90.710 - Acquired absence of both cervix and uterus (ICD-10) Hx of tubal ligation ?Z98.51 - Tubal ligation status (ICD-10) History of shoulder surgery ?Z98.890 - Other specified postprocedural states (ICD-10) 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 What is your current living situation?: I presently have a place to live Problems where you live: no known problems Problems where you live details: none In the past 12 months, utilities in danger of being shut off: no In past 12 months, lack of transportation kept you from medical appts, meetings, work, or getting things needed for daily living: no In the past 12 mos, have been you worried that your food would run out before you had money to buy more?: never true In the past 12 mos, the food you bought just didn't last and you didn't have money to buy more?: never true Smoking Status: Current every day smoker What tobacco products do you use: cigarettes Smoking packs per day: 1 Smoking cigarettes per day: 20.0 Smoking quit date/years: >15 years ago Do you use any of these nicotine containing products: None Second hand tobacco smoke exposure: No How often do you have a drink containing alcohol: monthly or less How many standard drinks containing alcohol do you have on a typical day: 1 or 2 How often do you have six or more drinks on one occasion: Never AUDIT-C Alcohol total score: 1 Non-prescribed substance use: denies use, opiods/painkillers and over the counter (eg: immodium) Caffeine: Yes (COFFEE AND DIET COKE) How often does anyone, including family, friends and others, physically hurt you: never How often does anyone, including family, friends and others, insult or talk down to you: never How often does anyone, including family, friends and others, threaten you with harm: never How often does anyone, including family, friends and others, scream or curse at you: never Are you using contraception or practicing any form of control: No (HYSTERECTOMY) service: No Exam Narrative: Exam Narrative: Vital signs reviewed In general, alert, nontoxic elderly woman. No respiratory distress, tachypneic. Head: Normocephalic, atraumatic. Eyes: Sclera clear. Pupils equal and reactive. ENT: Mucous membranes moist. Neck: Supple without adenopathy. Heart: Tachycardic and regular, no obvious murmur. Lungs: Diffuse wheezes without increased work of breathing. Abdomen: Soft, nontender to palpation. Extremities: Well perfused, pulses intact. No significant edema. Neurologic: Alert, conversant. Speech fluent, face symmetric. Moves all extremities equally. Skin: Warm, dry well perfused. Affect: Normal. Const: Vital Signs, click to edit/add: Vital Signs - 24 hr 03/23/25 12:49 03/23/25 13:53 03/23/25 14:09 Temperature 98.7 F Pulse Rate [Pulse Oximeter] 122 H 103 H Respiratory Rate 36 H 26 H Blood Pressure [Ri ght Upper Arm] 119/74 139/80 Pulse Oximetry 91 92 94 Oxygen Delivery Me thod Room Air Room Air Course Course ED Course: Patient presents with shortness of breath, cough, reported fevers at home, underlying COPD. Diagnostic considerations would include viral process, COPD exacerbation, bronchitis, pneumonia, pulmonary embolism, acute coronary syndrome, congestive heart failure, pleural effusion, pneumothorax, among others. Will check labs, EKG, D-dimer and troponin, chest x-ray. DuoNeb ordered, she is tachycardic, this may be related to her use of beta agonists at home, she may also have a component of dehydration as she has been feeling poorly. Will give her 500 mL of normal saline. Suspicion for congestive heart failure relatively low in the absence of prior history. Labs are reviewed, notable primarily for an elevated white blood cell count of 15 and an elevated CRP of 19. Chest x-ray however by my review is negative, I do not see evidence of an infiltrate, read by Radiology is negative as well. No evidence of acute congestive heart failure, BNP is negative, troponin is negative, EKG shows a sinus tachycardia with a ventricular rate of 103. Tachycardia did improve with IV fluids here in heart rate is down to 103. Wheezing and respiratory rate improved with DuoNeb, and she is feeling improved from that standpoint as well. Overall her presentation is most consistent with COPD exacerbation. I do feel with her age and other risk factors that she would benefit from an antibiotic as well as a steroid. She was given Solu-Medrol here, will prescribe prednisone for home. I also prescribed Augmentin. Recommend primary care follow-up if not improving in the next few days, reviewed reasons to return such as worsening shortness of breath, fevers, chills, or other significant worsening. Vital Signs Vital signs: Initial Vital Signs Temperature 98.7 F 03/23/25 12:49 Temperature Source Temporal Artery Scan 03/23/25 12:49 Pulse Rate 122 H 03/23/25 12:49 Respiratory Rate 36 H 03/23/25 12:49 Blood Pressure 119/74 03/23/25 12:49 Blood Pressure Mean 89 03/23/25 12:49 Blood Pressure Position Sitting 03/23/25 12:49 Pulse Oximetry 91 03/23/25 12:49 Oxygen Delivery Method Room Air 03/23/25 12:49 Vital Signs Temperature 98.7 F 03/23/25 12:49 Pulse Rate 122 H 03/23/25 12:49 Respiratory Rate 36 H 03/23/25 12:49 Blood Pressure 119/74 03/23/25 12:49 Pulse Oximetry 91 03/23/25 12:49 Oxygen Delivery Method Room Air 03/23/25 12:49 Temperature 98.7 F 03/23/25 12:49 Pulse Rate 103 H 03/23/25 13:53 Respiratory Rate 26 H 03/23/25 13:53 Blood Pressure 139/80 03/23/25 13:53 Pulse Oximetry 94 03/23/25 14:09 Oxygen Delivery Method Room Air 03/23/25 13:53 Medications Administered Medications: Discontinued Medications Generic Name Dose Route Start Last Admin Trade Name Sabinoq PRN Reason Stop Dose Admin Albuterol/Ipratropium 1 neb 03/23/25 13:16 03/23/25 13:55 Iprat-Albut 0.5-2.5 Mg/3 Ml Neb IH 03/23/25 13:17 1 neb ONCE ONE Administration Sodium Chloride 500 mls @ 500 mls/hr 03/23/25 13:16 03/23/25 13:54 0.9 % Sodium Chloride 500 Ml IV 03/23/25 14:15 500 mls/hr .Q1H ONE Administration Methylprednisolone Sodium Succinate 125 mg 03/23/25 13:16 03/23/25 13:54 Methylprednisolone Sod Succ 62.5 Mg/Ml (125) IVP 03/23/25 13:17 125 mg ONCE ONE Administration Medical Decision Making Lab Data Lab results reviewed: Yes I reviewed the patient's lab results Labs: Lab Results 03/23/25 03/23/25 03/23/25 Range/Units 12:50 13:16 13:35 WBC 14.99 H (4.50-11.00) K/uL RBC 4.35 (4.00-5.20) m/uL Hgb 12.7 (12.0-16.0) gm/dL Hct 39.5 (33.0-51.0) % MCV 91 (80-100) fL MCH 29 (26-34) pg MCHC 32 (32-36) gm/dL RDW Coeff of Marcela 12.3 (11.5-15.5) % Plt Count 295 (140-440) K/uL Neut % (Auto) 75.3 H (42.0-72.0) % Lymph % (Auto) 12.9 L (20-44) % Bureau % (Auto) 11.0 (0.0-11.0) % Eos % (Auto) 0.5 (0.0-7.0) % Baso % (Auto) 0.1 (0.0-3.0) % Neut # (Auto) 11.30 H (1.7-7.0) K/uL Lymph # (Auto) 1.90 (0.90-2.90) K/uL Bureau # (Auto) 1.60 H (0.00-0.90) K/UL Eos # (Auto) 0.10 (0.00-0.50) K/uL Baso # (Auto) 0.00 (0.00-0.30) K/uL Abs Immat Gran (auto) 0.00 (0.00-0.30) K/uL Imm/Tot Granulo (auto) 0.2 % D-Dimer Quant (PE/DVT) 0.38 (0.00-0.50) ug/ml Sodium 134 L (135-149) mmol/L Potassium 4.1 (3.6-5.1) mmol/L Chloride 103 (96-114) mmol/L Carbon Dioxide 23 (20-32) mmol/L Anion Gap 8 (7-15) mEq/L BUN 11 (7-30) mg/dL Creatinine 0.6 (0.5-1.5) mg/dL Estimated Creat Clear 40.63 Estimated GFR 98 ml/min Glucose 95 (60-115) mg/dL Calcium 8.8 (8.4-10.6) mg/dL C-Reactive Protein 19.2 H (0.5-1.0) mg/dL NT-Pro-B Natriuret Pep 216 (See Note) pg/mL SARS-CoV-2 (PCR) Negative SARS-CoV-2 (Negative) Influenza Type A (PCR) Negative PCR FLU A (Negative) Influenza Type B (PCR) Negative PCR FLU B (Negative) RSV (PCR) Negative PCR RSV (Negative) POC Troponin I 0.00 L (0.01-0.04) ng/ml Imaging Data Chest x-ray: Attestation: I have reviewed the pertinent imaging results. Radiologist's impression: Patient: Irene Diaz MR#: [id number] : 1955 Acct:[id number] Loc: ED Service Date: 03/23/[address]: Ordering Physician: Zara Holliday M.D. Date of Service: 03/23/25 Procedure(s): XR chest 2V Accession Number(s): [id number] cc: Zara Holliday M.D.; Ad Griffin M.D.~ For Patients: As a result of the Cures Act, medical imaging exams and procedure reports are released immediately into your electronic medical record. You may view this report before your referring provider. If you have questions, please contact your health care provider. INDICATION: Cough. TECHNIQUE: Chest 2 views. COMPARISON: 11/27/2024. FINDINGS: Cardiovascular and mediastinum: Heart size is normal. Unremarkable mediastinum. Lungs and pleural spaces: Lungs are clear except for a stable right lung granuloma. No sign of infiltrate or mass. No sign of pleural effusion. No pneumothorax. Bones and soft tissues: No significant findings. IMPRESSION: Negative chest. No sign of pneumonia or CHF. Dictated by Kolton Spaulding MD @ 03/23/2025 2:01:36 PM Discharge Plan Discharge Clinical Impression: COPD exacerbation Patient Disposition: Home, Self-Care Condition: Improved Instructions: COPD (Chronic Obstructive Pulmonary Disease) (DC) Additional Instructions: Take the prednisone and Augmentin as prescribed. If you are not feeling gradually improved over the next few days, please follow-up with primary care. Return to the ER at any time if you feel significantly worse, develops high fevers, shaking chills, vomiting, weakness, worsening shortness of breath etcetera. Continue to use your inhalers as prescribed. Prescriptions: No Action ascorbic acid (vitamin C) 500 mg tablet 1 g PO DAILY cholecalciferol (vitamin D3) 25 mcg (1,000 unit) tablet 1,000 unit PO DAILY aspirin 81 mg tablet,delayed release (DR/EC) 81 mg PO QDAY celecoxib [Celebrex] 200 mg capsule 200 mg PO BID Qty: 60 3RF pantoprazole 40 mg tablet,delayed release (DR/EC) 40 mg PO DAILY armodafinil 150 mg tablet 150 mg PO QAM buspirone 30 mg tablet 30 mg PO BID bupropion HCl 300 mg tablet extended release 24 hr 300 mg PO QDAY acetaminophen 500 mg tablet 1,000 mg PO Q6H PRN duloxetine 60 mg capsule,delayed release(DR/EC) 120 mg PO DAILY lorazepam 0.5 mg Tablet 0.5 mg PO Q6H PRNQty: 15 0RF albuterol sulfate 90 mcg/actuation HFA aerosol inhaler 2 inh INHALATION Q4H PRN (Reason: shortness of breath or wheezing) Qty: 8.5 8RF losartan 50 mg tablet 50 mg PO DAILY Qty: 90 1RF famotidine 20 mg tablet 20 mg PO BID Qty: 180 1RF oxycodone-acetaminophen [Percocet] 5-325 mg tablet 1 tab PO Q4-8H PRN (Reason: pain) Qty: 90 0RF Follow Up/Referrals: Ad Griffin MD [Primary Care Provider, Internal Medicine] Stand Alone Forms: Given.toth Info Instructions
[2025-03-23 13:36] LABS: PCR FLU A Negative PCR FLU A (Negative); PCR FLU B Negative PCR FLU B (Negative); PCR RSV Negative PCR RSV (Negative); SARS PCR* Negative SARS-CoV-2 (Negative)
[2025-03-23 13:46] LABS: Basophils Percent Auto 0.1 % (0.0-3.0); Eosinophils Percent Auto 0.5 % (0.0-7.0); Hematocrit 39.5 % (33.0-51.0); Hemoglobin* 12.7 gm/dL (12.0-16.0); Immature Granulocytes Pct Auto 0.2 %; Lymphocytes Percent Auto 12.9 % (20-44); Mean Corpuscular HGB Conc 32 gm/dL (32-36); Mean Corpuscular Hemoglobin 29 pg (26-34); Mean Corpuscular Volume 91 fL (80-100); Neutrophils Percent Auto 75.3 % (42.0-72.0); Platelet Count* 295 K/uL (140-440); RDW Coefficient of Variation % 12.3 % (11.5-15.5); Red Blood Count 4.35 m/uL (4.00-5.20); White Blood Count* 14.99 K/uL (4.50-11.00)
[2025-03-23 13:53] VITALS: BP 139/80; PULSE 103; RESP 26; O2SAT 92
[2025-03-23] MEDS: METHYLPREDNISOLONE SOD SUCC 62.5 MG/ML (125) 125 MG IVP (13:54)
[2025-03-23] MEDS: 0.9 % SODIUM CHLORIDE 500 ML 500 ML IV (13:54)
[2025-03-23 13:55] LABS: Slide Review Reflex No
[2025-03-23] MEDS: IPRAT-ALBUT 0.5-2.5 MG/3 ML NEB 1 NEB IH (13:55)
[2025-03-23 14:02] LABS: Chloride* 103 mmol/L (96-114); Potassium* 4.1 mmol/L (3.6-5.1); Sodium* 134 mmol/L (135-149)
[2025-03-23 14:05] LABS: Blood Urea Nitrogen* 11 mg/dL (7-30); Creatinine* 0.6 mg/dL (0.5-1.5); Est. Creatinine Clearance* 40.63; Estimated Glomerular Filt Rate 98 ml/min
[2025-03-23 14:06] LABS: Anion Gap 8 mEq/L (7-15); Calcium* 8.8 mg/dL (8.4-10.6); Carbon Dioxide* 23 mmol/L (20-32); Glucose* 95 mg/dL (60-115)
[2025-03-23 14:09] VITALS: O2SAT 94
[2025-03-23 14:09] LABS: D Dimer Quantitative* 0.38 ug/ml (0.00-0.50)
[2025-03-23 14:35] LABS: C Reactive Protein* 19.2 mg/dL (0.5-1.0); NT Pro B Type NatriureticPept* 216 pg/mL (See Note)
== END 2025-03-23 14:54 | disposition home or self-care (01) ==
PROVIDERS: Emergency Provider Emergency Medicine; PCP Internal Medicine
DX: J44.1 Chronic obstructive pulmonary disease with (acute) exacerbation (principal)
CPT/HCPCS: 36415; 71046; 80048; 83880; 84484; 85025; 85379; 86140; 87631; 93005; 94761; 96365; 99284; J2919; J7030

== ENCOUNTER 2025-03-25 11:55 | Emergency (ER) | payer MEDICARE, OTHER, SELFPAY ==
--- OUTSIDE RECORDS SUMMARY | 2025-03-25 11:58 | XMS_ITS | Clinical Summary ---
Author Organization [facility] Address [address] [place] [id number] Care Team Providers Care Taxi Proprietor Name Role Phone Stevenson Mitchell MD Primary [...] 24 hours. 100 Tablet 1 12:03 PM DIRECTOR OF ACADEMIC SUPPORT 021 Active albuterol HFA (PRO-AIR; VENTOLIN; PROVENTIL) 90 mcg/actuation inhalerIndicati ons:COPD exacerbation (HC) Inhale 2 Puffs by mouth 4 times daily. 18 g 2 3 9:55 AM DIRECTOR OF ACADEMIC SUPPORT 022 Active buPROPion (Wellbutrin XL) 300 mg Extended-Releas e tablet Take 1 Tablet (300 mg) by mouth once daily. 90 Tablet 3 023 Active albuterol-iprat ropium (DUONEB) (2.5-0.5 mg) in 3 mL NEBULIZATION solution Inhale 3 mL via a nebulizer every 6-8 hours if needed. 30 mL 3 11:02 AM DIRECTOR OF ACADEMIC SUPPORT 023 Active LORazepam (ATIVAN) 0.5 mg tab Take 1 Tablet (0.5 mg) by mouth every 6 hours if needed. 15 Tablet 3 11:02 AM DIRECTOR OF ACADEMIC SUPPORT 023 Active nebulizer and compressor As directed 1 Each 3 11:02 AM DIRECTOR OF ACADEMIC SUPPORT 023 Active losartan (COZAAR) 50 mg tabletIndicatio ns:Essential hypertension TAKE 1 TABLET ONE TIME DAILY 90 Tablet 023 Active famotidine (PEPCID) 20 mg tabletIndicatio ns:Chronic GERD TAKE 1 TABLET TWICE DAILY 180 Tablet 2 023 Active codeine-guaiFEN esin (ROBITUSSIN AC) 10-100 mg/5 mL liquid Take 10 mL by mouth every 4 hours if needed for cough. 118 mL 3 2:59 PM DIRECTOR OF ACADEMIC SUPPORT 023 Active pregabalin (LYRICA) 50 mg capsuleIndicati ons:Chest pain, pleuritic TAKE 1 CAPSULE AT BEDTIME 30 Capsule 024 Active azithromycin (Zithromax Z-Leodan) 250 mg tablet Take two tablets (500 mg) by mouth today, then one tablet (250 mg) daily for days 2-5. 6 Tablet 4 2:03 PM DIRECTOR OF ACADEMIC SUPPORT 024 Active predniSONE (DELTASONE) 10 mg tablet [...] on packaging. 21 Tablet 5 1:57 PM DIRECTOR OF ACADEMIC SUPPORT Active pantoprazole (PROTONIX) 40 mg delayed-release tabletIndicatio [...] episode of shingles in 04/2006. On gabapentin. [facility] (current) use of anticoagulants 2006 Other premature [...] Immunization Administration Dates Next Due COVID-19 vaccine ([employer] 30mcg/0.3mL) PF, MDV 01/27/2021,01/06/2021 DT (Age < [...] on file Legal Sex Female 5:21 AM DIRECTOR OF ACADEMIC SUPPORT Gender Identity Not on file Sexual Orientation Not on file Occupation Industry Job Start Date Job End Date [employer] Not on file Not on file Not [...] Comments Blood Pressure 110/64 09/13/2023 12:55 PM DIRECTOR OF ACADEMIC SUPPORT Pulse 76 09/13/2023 12:55 PM DIRECTOR OF ACADEMIC SUPPORT Temperature 36.7 C (98.1 F) 08/04/2023 10:49 AM CDT Respiratory Rate 16 09/13/2023 12:55 PM DIRECTOR OF ACADEMIC SUPPORT Oxygen Saturation 95% 08/04/2023 12:16 PM CDT Inhaled Oxygen Concentration - - Weight 62.4 kg (137 lb 8 oz) 09/13/2023 12:55 PM DIRECTOR OF ACADEMIC SUPPORT Height 154.9 cm (5' 1) 08/04/2023 10:49 [...] CT CHEST WO Routine 10/23/2018 7:38 AM DIRECTOR OF ACADEMIC SUPPORT Smoking addiction Chronic night sweats Cough XR MAMMO UNI ADDL VIEWS LEFT Routine 07/05/2018 11:03 AM CDT Nodular chondrodermatitis, left LIPID PANEL Timed 06/07/2006 11:08 AM CDT from Last 3 Months or Most Recently Relevant to Health Maintenance Results * OCCULT BLOOD IFOBT STOOL (05/06/2020 12:00 PM CDT) STOOL BLOOD ,IFOBT Negative Negative 05/06/2020 4:45 PM CDT [facility] Stool STOOL SPECIMEN / Unknown Non-Blood / Unknown 05/06/2020 12:00 PM CDT 05/06/2020 4:30 PM CDT Damien Ortiz MD LABORATORY Final Result [facility] [address] [place] [address] * CT CHEST WO (10/23/2018 7:38 AM DIRECTOR OF ACADEMIC SUPPORT) Anatomical Region Laterality Modality CHEST, THORAX, HEART Computed To mography 10/23/2018 8:51 AM DIRECTOR OF ACADEMIC SUPPORT Narrative 10/23/2018 8:51 AM DIRECTOR OF ACADEMIC SUPPORT INDICATION: 63 year-old female. Smoking addiction. Chronic [...] CDT) CHOLESTEROL,TOTAL 142 110 - 199 mg/dL [facility] TRIGLYCERIDES 102 <150 mg/dL [facility] HDL CHOLESTEROL 54 >40 mg/dL [facility] CHOL/HDL RATIO 2.63 <4.51 [facility] LDL CHOLESTEROL 68 <131 mg/dL [facility] PATIENT STATUS Non-Fasti ng [facility] 06/07/2006 11:0 8 AM CDT 06/07/2006 11:08 AM CDT Mary Kate Calzada MD CHEMISTRY Final Resu lt [facility] [address] [place] [id number] from Last 3 Months or Most Recently Relevant to Health Maintenance Insurance [facility] MEDICARE RR PART A HB ONLY MEDICARE RR PART B PB ONLY [facility] MEDICARE RR PART B HB ONLY [facility] Advance Directives Documents on File Type Date Recorded Patient Nut Feeder Expl anation Healthcare Directive 06/16/2018 12:00 AM [...] 6:21 AM 04/04/2007 3:04 PM Care Teams Taxi Proprietor Relationship Specialty Start Date End Date Stevenson Mitchell MD [address] [place] [address] PCP - General Family Practice 08/22/20
[2025-03-25 12:04] VITALS: BP 145/87; PULSE 106; RESP 20; TEMP 37.2; O2SAT 94; BMI 25.1
--- NOTE | 2025-03-25 12:21 | XR_ITS ---
Patient: HARSHA CRISOSTOMO Facility:?[facility] Patient ID:?[id number] Site Patient ID:?[id number]. Site :?[id number] Study:?XRay-Chest 2v AP/LAT-03/25/2025 12:57:47 PM Ordering Physician:?Alvaro Valenzuela Final Report: INDICATION: Cough and shortness of breath. TECHNIQUE: Chest 2 views. COMPARISON: 03/23/2025. FINDINGS: Lungs and pleural spaces: No consolidation. No pleural effusion. No pneumothorax. Right lung granuloma. Cardiovasculature and mediastinum: Heart size and mediastinal contours are normal. IMPRESSION: No acute cardiopulmonary abnormality. Dictated by Jeremiah Muller MD @ 03/25/2025 1:00:19 PM (Electronic Signature)
--- NOTE | 2025-03-25 12:23 | ED.GENADULT ---
HPI - General Adult General Chief complaint: Shortness of Breath/Dyspnea Stated complaint: pneumonia symptoms worst Time Seen by Provider: 03/25/25 11:56 History of Present Illness HPI narrative: This 69-year-old female comes in with her significant other because of worsening symptoms that she attributes to pneumonia. She was seen 2 days ago here and had a thorough workup including chest x-ray and labs. Chest x-ray showed COPD but no sign of pneumonia. She continues to smoke and given her risk for infection she was started on Augmentin. She did receive DuoNeb and steroid also in this visit a couple days ago. She comes in today stating that she is feeling worse and reports some confusion and generalized weakness. She arrives here with normal vital signs except for tachycardia with heart rate at 106 beats per minute. Related Data Home Medications ?Medication ?Instructions ?Recorded ?Confirmed bupropion HCl 300 mg 24 hr tablet, 300 mg PO QDAY 04/25/22 03/25/25 extended release buspirone 30 mg tablet 30 mg PO BID 04/25/22 03/25/25 ascorbic acid (vitamin C) 500 mg 1 g PO DAILY 04/28/22 03/25/25 tablet aspirin 81 mg tablet,delayed 81 mg PO QDAY 04/28/22 03/25/25 release cholecalciferol (vitamin D3) 25 1,000 unit PO DAILY 04/28/22 03/25/25 mcg (1,000 unit) tablet acetaminophen 500 mg tablet 1,000 mg PO Q6H PRN 05/25/22 12/04/24 pantoprazole 40 mg tablet,delayed 40 mg PO DAILY 09/03/22 03/25/25 release duloxetine 60 mg capsule,delayed 120 mg PO DAILY 08/10/23 03/25/25 release armodafinil 150 mg tablet 150 mg PO QAM 06/07/24 03/25/25 pramipexole 0.5 mg tablet 0.5 mg PO DAILY 03/25/25 03/25/25 Previous Rx's ?Medication ?Instructions ?Recorded celecoxib 200 mg capsule (Celebrex) 200 mg PO BID #60 caps 08/10/22 lorazepam 0.5 mg tablet 0.5 mg PO Q6H PRN #15 tabs 08/12/23 albuterol sulfate 90 mcg/actuation 2 inh inhalation Q4H PRN shortness 03/21/24 aerosol inhaler of breath or wheezing #8.5 grams famotidine 20 mg tablet 20 mg PO BID #180 tabs 11/05/24 losartan 50 mg tablet 50 mg PO DAILY #90 tabs 11/05/24 oxycodone-acetaminophen 5 mg-325 1 tab PO Q4-8H PRN pain #90 tabs 02/26/25 mg tablet (Percocet) acetaminophen 300 mg-codeine 30 mg 1 tab PO Q6H PRN pain #15 tabs 03/25/25 tablet Allergies Allergy/AdvReac Type Severity Reaction Status Date / Time aripiprazole (From [facility]ilif[facility]iculous) Allergy Intermediate Shortness Verified 03/25/25 12:02 of breath, itchy face Review of Systems Status of ROS: Reports: 10 or more systems reviewed and unremarkable except as noted in History and below Narrative: Constitutional: No fevers, no weight gain or loss. Eyes: No discharge. No vision changes. HENT: No congestion, no sore throat, no ear pain. Cardiovascular: No chest pain, no palpitations. Respiratory: She reports cough and shortness of breath. Gastrointestinal: No abdominal pain, no vomiting, no diarrhea. Genitourinary: No dysuria, no hematuria. Musculoskeletal: Normal range of motion. Skin: No rashes, no pruritis. Neurological: No dizziness, sensory change, speech change. She reports generalized weakness. Endo/Heme/Allergies: No bruising or bleeding. No polydipsia. Pysch: no suicidality, no anxiety, no insomnia. All other systems reviewed and are negative. [facility] Medical History Pneumonia ?J18.9 - Pneumonia, unspecified organism (ICD-10) Head, face & neck injury ?S19.9XXA - Unspecified injury of neck, initial encounter (ICD-10) ?S09.90XA - Unspecified injury of head, initial encounter (ICD-10) ?S09.93XA - Unspecified injury of face, initial encounter (ICD-10) Neck pain ?M54.2 - Cervicalgia (ICD-10) GERD (gastroesophageal reflux disease) ?K21.9 - Gastro-esophageal reflux disease without esophagitis (ICD-10) Acute hypokalemia ?E87.6 - Hypokalemia (ICD-10) Opioid dependence on maintenance agonist therapy, no symptoms ?F11.20 - Opioid dependence, uncomplicated (ICD-10) History of GI bleed ?Z87.19 - Personal history of other diseases of the digestive system (ICD-10) Renal infarct ?N28.0 - Ischemia and infarction of kidney (ICD-10) Osteoarthritis of right knee ?M17.11 - Unilateral primary osteoarthritis, right knee (ICD-10) Chronic radicular pain of lower back ?M54.16 - Radiculopathy, lumbar region (ICD-10) ?G89.29 - Other chronic pain (ICD-10) Major depressive disorder ?F32.9 - Major depressive disorder, single episode, unspecified (ICD-10) PUD (peptic ulcer disease) ?K27.9 - Peptic ulcer, site unspecified, unspecified as acute or chronic, without hemorrhage or perforation (ICD-10) Migraine ?G43.909 - Migraine, unspecified, not intractable, without status migrainosus (ICD-10) Unspecified asthma ?J45.909 - Unspecified asthma, uncomplicated (ICD-10) Tobacco use ?Z72.0 - Tobacco use (ICD-10) Sepsis ?A41.9 - Sepsis, unspecified organism (ICD-10) Arthritis of right shoulder region ?M19.011 - Primary osteoarthritis, right shoulder (ICD-10) Surgical History Status post medial meniscus repair (05/26/22) ?Z98.890 - Other specified postprocedural states (ICD-10) S/P right knee arthroscopy (10/18/22) ?Z98.890 - Other specified postprocedural states (ICD-10) History of endometrial ablation ?Z98.890 - Other specified postprocedural states (ICD-10) Hx of oophorectomy Hx of LASIK ?Z98.890 - Other specified postprocedural states (ICD-10) Hx of dilation and curettage ?Z98.890 - Other specified postprocedural states (ICD-10) Hx of vaginal hysterectomy ?Z90.710 - Acquired absence of both cervix and uterus (ICD-10) Hx of tubal ligation ?Z98.51 - Tubal ligation status (ICD-10) History of shoulder surgery ?Z98.890 - Other specified postprocedural states (ICD-10) 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 What is your current living situation?: I presently have a place to live Problems where you live: no known problems Problems where you live details: none In the past 12 months, utilities in danger of being shut off: no In past 12 months, lack of transportation kept you from medical appts, meetings, work, or getting things needed for daily living: no In the past 12 mos, have been you worried that your food would run out before you had money to buy more?: never true In the past 12 mos, the food you bought just didn't last and you didn't have money to buy more?: never true Smoking Status: Current every day smoker What tobacco products do you use: cigarettes Smoking packs per day: 1 Smoking cigarettes per day: 20.0 Smoking quit date/years: >15 years ago Do you use any of these nicotine containing products: None Second hand tobacco smoke exposure: No How often do you have a drink containing alcohol: monthly or less How many standard drinks containing alcohol do you have on a typical day: 1 or 2 How often do you have six or more drinks on one occasion: Never AUDIT-C Alcohol total score: 1 Non-prescribed substance use: opiods/painkillers and over the counter (eg: immodium) Caffeine: Yes (COFFEE AND DIET COKE) How often does anyone, including family, friends and others, physically hurt you: never How often does anyone, including family, friends and others, insult or talk down to you: never How often does anyone, including family, friends and others, threaten you with harm: never How often does anyone, including family, friends and others, scream or curse at you: never Are you using contraception or practicing any form of control: No (HYSTERECTOMY) service: No Exam Narrative: Exam Narrative: Constitutional: Well-developed, well-nourished, no acute distress. HEENT: Normocephalic, atraumatic. Neck: Normal range of motion. Nontender. Supple. Heart: Regular. No murmurs. Tachycardia. Intact distal pulses. Lungs: Bilateral wheezes. No use of accessory muscles for breathing. Abdomen: Normal bowel sounds. Nontender. No rebound tenderness. Genitalia: Deferred. Back: No midline tenderness. Normal range of motion. Extremities: Normal range of motion. No injury. Skin: Intact. No rash. Warm. No erythema or pallor. Neurologic: No altered sensation. No weakness. Alert and oriented. Psychiatric: No suicidality. No anxiety or depression. No insomnia. Nursing notes and vitals signs are reviewed. Const: Vital Signs, click to edit/add: Vital Signs - 24 hr 03/25/25 12:04 03/25/25 13:13 03/25/25 13:15 Temperature 98.9 F Pulse Rate 99 101 H Pulse Rate [Pulse Oximeter] 106 H Respiratory Rate 20 18 Blood Pressure 134/89 Blood Pressure [Ri ght Upper Arm] 145/87 H Pulse Oximetry 94 100 100 Oxygen Delivery Me thod Room Air 03/25/25 13:46 03/25/25 14:00 Temperature Pulse Rate 101 H Pulse Rate [Pulse Oximeter] Respiratory Rate Blood Pressure Blood Pressure [Ri ght Upper Arm] Pulse Oximetry 80 L 92 Oxygen Delivery Me thod Course Vital Signs Vital signs: Initial Vital Signs Temperature 98.9 F 03/25/25 12:04 Temperature Source Temporal Artery Scan 03/25/25 12:04 Pulse Rate 106 H 03/25/25 12:04 Respiratory Rate 20 03/25/25 12:04 Respiratory Effort Labored, Short of Breath 03/25/25 12:04 Respiratory Depth Retractive 03/25/25 12:04 Respiratory Pattern Normal 03/25/25 12:04 Blood Pressure 145/87 H 03/25/25 12:04 Blood Pressure Mean 106 H 03/25/25 12:04 Pulse Oximetry 94 03/25/25 12:04 Oxygen Delivery Method Room Air 03/25/25 12:04 Vital Signs Temperature 98.9 F 03/25/25 12:04 Pulse Rate 106 H 03/25/25 12:04 Respiratory Rate 20 03/25/25 12:04 Blood Pressure 145/87 H 03/25/25 12:04 Pulse Oximetry 94 03/25/25 12:04 Oxygen Delivery Method Room Air 03/25/25 12:04 Temperature 98.9 F 03/25/25 12:04 Pulse Rate 101 H 03/25/25 14:00 Respiratory Rate 18 03/25/25 13:15 Blood Pressure 134/89 03/25/25 13:15 Pulse Oximetry 92 03/25/25 14:00 Oxygen Delivery Method Room Air 03/25/25 12:04 Medications Administered Medications: Discontinued Medications Generic Name Dose Route Start Last Admin Trade Name Freq PRN Reason Stop Dose Admin Acetaminophen/Codeine Phosphate 1 tab 03/25/25 13:33 03/25/25 13:47 Acetaminophen/Codeine 300 Mg/30 Mg Tablet PO 03/25/25 13:34 1 tab Q4H ONE Administration Albuterol/Ipratropium 1 neb 03/25/25 12:21 03/25/25 13:01 Iprat-Albut 0.5-2.5 Mg/3 Ml Neb IH 03/25/25 12:22 1 neb ONCE ONE Administration Methylprednisolone Sodium Succinate 125 mg 03/25/25 12:21 03/25/25 13:01 Methylprednisolone Sod Succ 62.5 Mg/Ml (125) IVP 03/25/25 12:22 125 mg ONCE ONE Administration Medical Decision Making [facility] Narrative Medical decision making narrative: This patient returns because of persistent coughing and feeling poorly. She was seen a couple days ago and had chest x-ray and labs done at that time. She is taking Augmentin despite no obvious evidence of pneumonia on x-ray. She does have risk for infection as she continues to smoke and has a history of COPD. Her vital signs are normal here except for tachycardia with heart rate around 105 beats per minute. She is maintaining oximetry at 92-94% on room air. I did repeat a chest x-ray and labs and these returned with reassuring findings. Her white count is a bit elevated but she has received a steroid. A nasal pharyngeal swab was done a couple days ago and was negative for viruses tested. Most likely this is a viral infection on top of her COPD and persistent smoking. She did receive a DuoNeb here and another dose of steroid intravenously. She also received an oral dose of Tylenol 3 for cough suppressant. She feels okay to return home. Lab Data Labs: Lab Results 03/25/25 Range/Units 13:06 WBC 15.78 H (4.50-11.00) K/uL RBC 4.30 (4.00-5.20) m/uL Hgb 12.6 (12.0-16.0) gm/dL Hct 39.2 (33.0-51.0) % MCV 91 (80-100) fL MCH 29 (26-34) pg MCHC 32 (32-36) gm/dL RDW Coeff of Marcela 12.1 (11.5-15.5) % Plt Count 377 (140-440) K/uL Neut % (Auto) 64.2 (42.0-72.0) % Lymph % (Auto) 26.6 (20-44) % [place] % (Auto) 8.6 (0.0-11.0) % Eos % (Auto) 0.1 (0.0-7.0) % Baso % (Auto) 0.1 (0.0-3.0) % Neut # (Auto) 10.10 H (1.7-7.0) K/uL Lymph # (Auto) 4.20 H (0.90-2.90) K/uL [place] # (Auto) 1.40 H (0.00-0.90) K/UL Eos # (Auto) 0.00 (0.00-0.50) K/uL Baso # (Auto) 0.00 (0.00-0.30) K/uL Abs Immat Gran (auto) 0.10 (0.00-0.30) K/uL Imm/Tot Granulo (auto) 0.4 % D-Dimer Quant (PE/DVT) 0.30 (0.00-0.50) ug/ml Sodium 136 (135-149) mmol/L Potassium 3.6 (3.6-5.1) mmol/L Chloride 100 (96-114) mmol/L Carbon Dioxide 27 (20-32) mmol/L Anion Gap 9 (7-15) mEq/L BUN 12 (7-30) mg/dL Creatinine 0.7 (0.5-1.5) mg/dL Estimated Creat Clear 40.63 Estimated GFR 94 ml/min Glucose 91 (60-115) mg/dL Calcium 9.1 (8.4-10.6) mg/dL C-Reactive Protein 4.7 H (0.5-1.0) mg/dL POC Troponin I 0.01 (0.01-0.04) ng/ml ECG Data Attestation: I personally reviewed and interpreted this ECG as follows: Interpretation: Sinus tachycardia, rate 106 beats per minute. There are no specific ST or T-wave abnormalities. Discharge Plan Discharge Clinical Impression: Acute upper respiratory infection, COPD exacerbation Patient Disposition: Home w/ Parent or Adult Condition: Stable Additional Instructions: Continue Augmentin as prescribed. Use Tylenol 3 for additional cough suppressant benefit. Smoking cessation is advised. Follow up with MD return if worsening. Prescriptions: New acetaminophen-codeine 300-30 mg tablet 1 tab PO Q6H PRN (Reason: pain) Qty: 15 0RF No Action ascorbic acid (vitamin C) 500 mg tablet 1 g PO DAILY cholecalciferol (vitamin D3) 25 mcg (1,000 unit) tablet 1,000 unit PO DAILY aspirin 81 mg tablet,delayed release (DR/EC) 81 mg PO QDAY celecoxib [Celebrex] 200 mg capsule 200 mg PO BID Qty: 60 3RF pantoprazole 40 mg tablet,delayed release (DR/EC) 40 mg PO DAILY armodafinil 150 mg tablet 150 mg PO QAM buspirone 30 mg tablet 30 mg PO BID bupropion HCl 300 mg tablet extended release 24 hr 300 mg PO QDAY acetaminophen 500 mg tablet 1,000 mg PO Q6H PRN duloxetine 60 mg capsule,delayed release(DR/EC) 120 mg PO DAILY lorazepam 0.5 mg Tablet 0.5 mg PO Q6H PRNQty: 15 0RF pramipexole 0.5 mg tablet 0.5 mg PO DAILY albuterol sulfate 90 mcg/actuation HFA aerosol inhaler 2 inh INHALATION Q4H PRN (Reason: shortness of breath or wheezing) Qty: 8.5 8RF losartan 50 mg tablet 50 mg PO DAILY Qty: 90 1RF famotidine 20 mg tablet 20 mg PO BID Qty: 180 1RF oxycodone-acetaminophen [Percocet] 5-325 mg tablet 1 tab PO Q4-8H PRN (Reason: pain) Qty: 90 0RF Follow Up/Referrals: Ad Griffin MD [Primary Care Provider, Internal Medicine] Stand Alone Forms: [facility] Info Instructions
[2025-03-25] MEDS: IPRAT-ALBUT 0.5-2.5 MG/3 ML NEB 1 NEB IH (13:01)
[2025-03-25] MEDS: METHYLPREDNISOLONE SOD SUCC 62.5 MG/ML (125) 125 MG IVP (13:01)
[2025-03-25 13:13] VITALS: PULSE 99; O2SAT 100
[2025-03-25 13:15] VITALS: BP 134/89; PULSE 101; RESP 18; O2SAT 100
[2025-03-25 13:35] LABS: Basophils Percent Auto 0.1 % (0.0-3.0); Eosinophils Percent Auto 0.1 % (0.0-7.0); Hematocrit 39.2 % (33.0-51.0); Hemoglobin* 12.6 gm/dL (12.0-16.0); Immature Granulocytes Pct Auto 0.4 %; Lymphocytes Percent Auto 26.6 % (20-44); Mean Corpuscular HGB Conc 32 gm/dL (32-36); Mean Corpuscular Hemoglobin 29 pg (26-34); Mean Corpuscular Volume 91 fL (80-100); Monocytes Percent Auto 8.6 % (0.0-11.0); Neutrophils Percent Auto 64.2 % (42.0-72.0); Platelet Count* 377 K/uL (140-440); RDW Coefficient of Variation % 12.1 % (11.5-15.5); White Blood Count* 15.78 K/uL (4.50-11.00)
[2025-03-25 13:41] LABS: Chloride* 100 mmol/L (96-114); Potassium* 3.6 mmol/L (3.6-5.1); Slide Review Reflex No; Sodium* 136 mmol/L (135-149)
[2025-03-25 13:43] LABS: Blood Urea Nitrogen* 12 mg/dL (7-30); Creatinine* 0.7 mg/dL (0.5-1.5); Est. Creatinine Clearance* 40.63; Estimated Glomerular Filt Rate 94 ml/min
[2025-03-25 13:44] LABS: Anion Gap 9 mEq/L (7-15); Calcium* 9.1 mg/dL (8.4-10.6); Carbon Dioxide* 27 mmol/L (20-32); Glucose* 91 mg/dL (60-115)
[2025-03-25 13:46] VITALS: O2SAT 80
[2025-03-25 13:47] LABS: C Reactive Protein* 4.7 mg/dL (0.5-1.0)
[2025-03-25 14:00] VITALS: PULSE 101; O2SAT 92
[2025-03-25 14:09] LABS: Troponin, Point-of-Care* 0.01 ng/ml (0.01-0.04)
== END 2025-03-25 15:18 | disposition home or self-care (01) ==
PROVIDERS: Emergency Provider Emergency Medicine Emergency Medical Services; PCP Internal Medicine
DX: J44.1 Chronic obstructive pulmonary disease with (acute) exacerbation (principal); R00.0 Tachycardia, unspecified; J06.9 Acute upper respiratory infection, unspecified; F17.210 Nicotine dependence, cigarettes, uncomplicated
CPT/HCPCS: 36415; 71046; 80048; 84484; 85025; 85379; 86140; 93005; 94640; 96374; 99284; 99285; A9270; J2919